=== PATIENT | female | born 1945 | race Caucasian/White ===

== ENCOUNTER 2017-11-25 11:07 | Outpatient (CLI) | payer MEDICARE, MEDICAID, SELFPAY ==
[2017-11-25 13:10] LABS: Hemoglobin A1C 9.4 % (4.5-6.2)
== END 2017-11-25 11:27 ==
DX: E11.9 Type 2 diabetes mellitus without complications (principal)
CPT/HCPCS: 36415; 83036

== ENCOUNTER 2018-03-06 12:20 | Outpatient (CLI) | payer MEDICARE, MEDICAID, SELFPAY ==
[2018-03-06 12:55] LABS: Hemoglobin A1C 9.1 % (4.5-6.2)
== END 2018-03-06 12:40 ==
DX: E11.9 Type 2 diabetes mellitus without complications (principal)
CPT/HCPCS: 36415; 83036

== ENCOUNTER 2018-07-16 12:17 | Outpatient (CLI) | payer MEDICARE, MEDICAID, SELFPAY ==
[2018-07-16 13:12] LABS: Hemoglobin A1C 9.7 % (4.5-6.2)
== END 2018-07-16 12:37 ==
DX: E11.9 Type 2 diabetes mellitus without complications (principal)
CPT/HCPCS: 36415; 83036

== ENCOUNTER 2018-10-05 00:30 | Outpatient (CLI) | payer MEDICARE, MEDICAID, SELFPAY ==
[2018-10-06 06:38] LABS: Hemoglobin A1C 9.3 % (4.5-6.2)
== END 2018-10-05 00:50 ==
DX: E11.65 Type 2 diabetes mellitus with hyperglycemia (principal)
CPT/HCPCS: 36415; 83036

== ENCOUNTER 2019-01-07 00:57 | Outpatient (CLI) | payer MEDICARE, MEDICAID, SELFPAY ==
[2019-01-07 14:22] LABS: Hemoglobin A1C 8.3 % (4.5-6.2)
== END 2019-01-07 01:17 ==
DX: E11.9 Type 2 diabetes mellitus without complications (principal)
CPT/HCPCS: 83036

== ENCOUNTER 2019-03-29 10:06 | Outpatient (CLI) | payer MEDICARE, MEDICAID, SELFPAY ==
[2019-03-29 11:34] LABS: Hemoglobin A1C 8.4 % (3.8-5.6)
== END 2019-03-29 10:26 ==
DX: E11.9 Type 2 diabetes mellitus without complications (principal)
CPT/HCPCS: 36415; 83036

== ENCOUNTER 2019-10-23 08:28 | Outpatient (CLI) | payer MEDICARE, MEDICAID, SELFPAY ==
[2019-10-25 19:02] LABS: SARS-CoV-2 RNA Undetected (Undetected); SARS-CoV-2 Specimen Source Nasopharynx
== END 2019-10-23 08:48 ==
DX: R06.02 Shortness of breath (principal)
CPT/HCPCS: U0003

== ENCOUNTER 2019-10-29 16:59 | Observation (INO) | payer MEDICARE, MEDICAID, SELFPAY ==
[2019-10-29] VITALS (79 sets, daily range): BP systolic 106–152; BP diastolic 50–78; PULSE 81–99; RESP 6–23; TEMP 37–37.4; O2SAT 93–98
--- NOTE | 2019-10-29 17:30 | RT.EKG_ITS ---
APPROVED REPORT Exam: Resting ECG Patient Location: E HR:89 bpm ECG Measurements Heart Rate 89 AXIS NJ 159 P 59 QRSd 85 QRS 17 QT 365 T 78 QTc 444 Conclusion Sinus rhythm...normal P axis, V-rate 60- [address] fep II, aVF Abnormal Electrocardiogram
[2019-10-29 17:32] LABS: Abs Immature Grans 0.04 10^3/uL (0.0-0.06); Absolute Basophil Count 0.06 10^3/uL (0.0-0.2); Absolute Eosinophil Count 0.31 10^3/uL (0.0-0.7); Absolute Lymphocyte Count 1.81 10^3/uL (1.2-3.4); Absolute Monocyte Count 0.77 10^3/uL (0.1-0.8); Absolute Neutrophil Count 6.66 10^3/uL (1.2-6.7); Basophils % 0.6; Eosinophils % 3.2; HCT 42.7 % (36.0-46.0); HGB 14.4 g/dL (11.2-15.7); Immature Grans % 0.4; Lymphocytes % 18.8; MCH 30.6 pg (27.0-33.0); MCHC 33.7 % (32.0-36.0); MCV 90.9 fL (80-95); MPV 11.2 fL (8.0-11.0); Nucleated RBC 0 %; Platelet Count 228 10^3/uL (130-400); RDW 12.2 % (11.7-14.6); RDW-SD 40.5 fL; WBC 9.65 10^3/uL (4.4-10.8)
--- NOTE | 2019-10-29 17:45 | DI.CT_ITS ---
EXAM: CT CHEST PE CTA CLINICAL HISTORY: chest pain, SOB. TECHNIQUE: Imaging Protocol: Axial CT angiography was performed with multi-slice acquisition and mu lti-planar and/or 3D reconstructions. CONTRAST MATERIAL: Intravenous: Omnipaque 350 Contrast volume:61 mL COMPARISON: No previous for comparison. FINDINGS: Pulmonary Arteries: No evidence of filling defect to suggest pulmonary emboli. Tracheobronchial tree: Patent where visualized. Mediastinum and Archana: No dominant adenopathy or fluid collection. Small hiatal hernia. Pulmonary parenchyma: No consolidation or dominant measurable mass. No architectural distortion. Depe ndent atelectasis. Pleura: No effusion or pneumothorax. Heart: The heart is not dilated. No coronary artery calcifications are seen. No pericardial effusion. Aorta: Thoracic aorta non-dilated. Mild atherosclerosis. No dissection. Upper abdomen: Unremarkable. Bones: No acute abnormality. Soft tissues: 0.8 cm hypodense nodule in the right lobe of the thyroid gland. Nonemergent ultrasound may be considered. IMPRESSION: No evidence of pulmonary embolism, thoracic aortic dissection or aneurysm. RADIATION DOSE DELIVERED: 390.95mGy.cm Total DLP DATA REPOSITORY: All CT scans at this facility are submitted to the National Radiology Data Registry (NRDR) Dose Index Registry (DIR) with the [employer] (ACR). RADIATION OPTIMIZATION: All CT scans at this facility use at least one of these dose optimization te chniques: automated exposure control; mA and/or kV adjustment per patient size (includes targeted exa ms where dose is matched to clinical indication); or iterative reconstruction.
[2019-10-29 17:50] LABS: ALT 43 U/L (14-59); AST 22 U/L (15-37); Albumin 3.8 g/dL (3.4-5.0); Alkaline Phosphatase 84 U/L (46-116); Anion Gap 7.6 mmol/L (3-11); BUN 12 mg/dL (7-18); Bilirubin, Total 0.3 mg/dL (0.2-1.0); CO2 27.4 mmol/L (21.0-32.0); Calcium 9.4 mg/dL (8.5-10.1); Chloride 95 mmol/L (98-107); Estimated GFR 53.91 (mL/min/1.73m2); Glucose 248 mg/dL (74-106); Magnesium 1.8 mg/dL (1.8-2.4); Sodium 130 mmol/L (136-145); Total Protein 7.7 g/dL (6.4-8.2)
--- NOTE | 2019-10-29 17:50 | W.ED.GENAD ---
Discharge Plan Disposition Patient Disposition: [facility] INPATIENT Condition: Improving Discharge Details Chief Complaint: SOB Clinical Impression: Chest pain, Breath shortness, Thyroid lesion, Atherosclerosis Admit Date/Time: 10/29/19 19:36 Admit Provider: Rudy Kim Attending Provider: Rudy Kim Primary Care Provider: Clemencia Garcia ED Provider: Mandeep Tejeda Hospital Course Hospital Course: 74-year-old female with history of type 2 diabetes mellitus, essential hypertension, chronic back pain due to degenerative disc disease who presents emergency department upon advice of her PCP because of exertional dyspnea and atypical chest discomfort is been going on for the last few months dating back to April or May. Patient has never had a stress test nor has she had a cardiac history that she is aware of. Patient does have a history of GERD and has had a previous Haydee's fundoplication and is chronically on Nexium. Her chest discomfort is not so much a pain as a pressure feeling that is worse with lying down and associated w/ coughing and dyspnea but is improved with sitting up. However, she is unable to sleep sitting up due to her lower back pains. She is not very ambulatory d/t her chronic low back pain which becomes severe if she is standing or sitting or walking for any prolonged periods. Patient's coronary risk factors include her age, DM, HTN, +/- HLD (she denies having high cholesterol); negative for any smoking history or family hx of premature CAD. (FH w/ multiple members w/ CA including ovarian and breast and stomach/esophageal) Evaluation included an EKG on admission that did not show acute ischemic changes. Serial troponin levels were normal. CTA of the chest did not show any pulmonary embolism nor any acute pulmonary pathology. Incidental finding was a right thyroid lobe 8 mm nodule for which a follow-up thyroid ultrasound should be performed. Echocardiogram and Lexiscan stress MPI were ordered. However an echocardiogram was not able to be performed due to lack of a field support technician. Lexiscan stress MPI was performed. Finalized written report is pending however per my discussion with Dr. Caro, radiologist, her MPI study did not show any reversible ischemic changes and her left ventricular ejection fraction of 70% with no wall motion abnormalities. I am still awaiting ceramic mold designer report on the EKG portion however I reviewed the myself and did not find any ischemic ST or T wave changes. Patient's chest pain is reproducible with chest wall palpation and consistent with costochondritis. Her other symptoms I think are referrable to her GERD including her nocturnal coughing and dyspnea with recumbent position and I recommend she follow-up with her GI specialist at [facility] for esophageal manometry and/or EGD. In the interim she should increase her Nexium from 20 mg daily to 40 mg daily. Discharge Instructions Instructions: Diet for Stomach Ulcers and Gastritis (GEN), Costochondritis (DC), Thyroid Nodules (DC), Esophageal Spasm (ED) Additional Instructions: Increase your Nexium to 40 mg nightly at bedtime. Avoid meals or snacks within a 2-hour period prior to lying down. Try to sleep in a semi-sitting up position with your head and shoulders at least 30 degrees above the level of your abdomen. See your primary care provider for follow-up and referral to your GI specialist. A follow-up esophageal manometry and/or EGD are recommended to evaluate your GERD. Your stress MPI test was normal. However this does not preclude the potential for future coronary ischemic events particularly given your history of diabetes mellitus and hypertension. It is recommended that you work with your primary care provider to improve your diabetic control as you are glycohemoglobin A1c is elevated at 8.3% which is indicative of poor control of your diabetes mellitus. I have ordered a thyroid ultrasound to be done next week through the radiology department at [facility] to evaluate the right thyroid lobe nodule. Your primary care provider should follow-up on these results and make appropriate referrals to endocrinology. Forms: Nursing Discharge Form Referrals: Clemencia Garcia NP [Primary Care Provider] - (Call the office for a follow-up visit within the next 2 weeks.) Discharge Data Discharge Date/Time-TO BE ENTERED AT DEPARTURE: 10/29/19 20:10 Medical Decision Making 1753??74-year-old female here with chest pressure that is positional and worse lying flat with associated shortness of breath and cough. Symptoms have been ongoing for the past 6 months. Patient was encouraged to seek emergent treatment by her PCP. Patient is mildly hypertensive. Saturating well and in no respiratory distress. She does have rales bilaterally lower lungs and notes that she feels like she cannot take a deep breath in. Consider acute pulmonary embolism. Given clinical suspicion I will obtain CT of the chest. Consider ACS. ECG does have subtle ST depressions noted inferiorly. Please see ECG report. I will check troponin. 191 --CT of the chest was interpreted by radiology-- Impression: No evidence for pulmonary embolism. Of note, in the findings of the report the radiologist does make mention of a moderate atherosclerotic changes in the vasculature particular at the origin of left common carotid artery and subclavian artery as well as a small low-density right lobe thyroid lesion. Follow-up sonography is recommended. Lungs are noted to be unremarkable with no consolidation and no masses. Patient was reassessed. She did receive 2 sublingual nitroglycerin and had no change in her discomfort, she declined 3rd nitroglycerin. Initial troponin is negative. Given her ECG, risk factors including diabetes and hypertension, I do think it is prudent to admit for observation, serial enzymes and will need timely stress test. HPI General Mode of arrival: ambulatory. Date/Time Provider Initiated Documentation: 10/29/19 17:11. Limitations to Documentation: no limitations. Information obtained by: patient. HPI Narrative: 74-year-old female presents with chief complaint of chest discomfort. Patient notes chest pressure intermittent over the past 6 months. She has intermittent sharp discomfort in her left chest as well. Pain is positional and worse when she is lying back. She also notes associated shortness of breath that is worse when she is lying flat and worse at night. She does have associated cough. No fevers. She did have recent negative COVID-19 testing on 10/23/2019. Patient notes the pain is currently moderate and improved with her sitting. She notes that she feels like she has trouble getting air in when she is taking a deep breath. Related Data Home Medications Medication Instructions Recorded Confirmed One-Per-Day Bellona-3 1,000 mg PO HS 06/12/12 10/29/19 multivitamin [Daily Multi-Vitamin] 1 ea PO DAILY 06/12/12 10/29/19 blood-glucose meter [OneTouch #1 kit 02/05/13 06/09/19 UltraMini] cholecalciferol (vitamin D3) 2,000 unit PO DAILY 05/10/15 10/29/19 Narcan 4 mg NS PRN #2 spray 12/24/16 10/29/19 acetaminophen 500 mg tablet 500 mg PO TID PRN tab 11/25/17 10/29/19 clotrimazole-betamethasone 1 1 applic TP BID 11/25/17 10/29/19 %-0.05 % topical cream meclizine 25 mg tablet 25 mg PO BID PRN 11/25/17 10/29/19 glimepiride 1 mg tablet 1 - 2 mg PO DIRECTED #270 tab 05/04/19 10/29/19 insulin glargine 100 unit/mL (3 10 - 30 unit SC DAILY 30 Days #15 05/05/19 10/29/19 mL) subcutaneous pen ml lisinopril 20 1 tab PO DAILY #90 tab 05/12/19 10/29/19 mg-hydrochlorothiazide 12.5 mg tablet bupropion HCl 150 mg tablet,12 hr 150 mg PO BID #180 tab 06/09/19 10/29/19 sustained-release pen needle, diabetic 32 gauge x #90 each 07/09/19 07/09/19 blood sugar diagnostic #300 each 07/14/19 lancets 33 gauge #300 each 07/14/19 lidocaine 5 % topical patch 1 patch TP DAILY #10 each 08/06/19 10/29/19 lorazepam 0.5 mg tablet 0.25 mg PO HS PRN #15 tab MDD 10/06/19 10/29/19 0.25mg sertraline 50 mg tablet 25 mg PO DAILY #90 tab 10/12/19 10/29/19 hydrocodone 10 mg-acetaminophen 1 tab PO Q8H PRN #90 tab MDD 30mg 10/13/19 10/29/19 325 mg tablet gabapentin 200 mg PO HS 10/29/19 10/29/19 esomeprazole magnesium 40 mg PO HS #0 cap 10/30/19 10/29/19 Previous Rx's Medication Instructions Recorded Narcan 4 mg NS PRN #2 spray 12/24/16 glimepiride 1 mg tablet 1 - 2 mg PO DIRECTED #270 tab 05/04/19 insulin glargine 100 unit/mL (3 10 - 30 unit SC DAILY 30 Days #15 05/05/19 mL) subcutaneous pen ml lisinopril 20 1 tab PO DAILY #90 tab 05/12/19 mg-hydrochlorothiazide 12.5 mg tablet bupropion HCl 150 mg tablet,12 hr 150 mg PO BID #180 tab 06/09/19 sustained-release pen needle, diabetic 32 gauge x #90 each 07/09/19 blood sugar diagnostic #300 each 07/14/19 lancets 33 gauge #300 each 07/14/19 lidocaine 5 % topical patch 1 patch TP DAILY #10 each 08/06/19 lorazepam 0.5 mg tablet 0.25 mg PO HS PRN #15 tab MDD 10/06/19 0.25mg sertraline 50 mg tablet 25 mg PO DAILY #90 tab 10/12/19 hydrocodone 10 mg-acetaminophen 1 tab PO Q8H PRN #90 tab MDD 30mg 10/13/19 325 mg tablet esomeprazole magnesium 40 mg PO HS #0 cap 10/30/19 Allergies Allergy/AdvReac Type Severity Reaction Status Date / Time adhesive Allergy Unknown Verified 10/29/19 17:39 ampicillin Allergy Unknown Verified 10/29/19 17:39 cyclobenzaprine Allergy Unknown Verified 10/29/19 17:39 erythromycin base Allergy Unknown Verified 10/29/19 17:39 Penicillins Allergy Unknown Verified 10/29/19 17:39 Sulfa (Sulfonamide Allergy Unknown Verified 10/29/19 17:39 Antibiotics) levofloxacin AdvReac Severe VOMITING,DI Verified 10/29/19 17:39 ARRHEA metformin AdvReac Intermediate DIARRHEA Verified 10/29/19 17:39 pregabalin AdvReac Mild FATIGUE Verified 10/29/19 17:39 epinephrine AdvReac Unknown Verified 10/29/19 17:39 rofecoxib AdvReac Unknown Verified 10/29/19 17:39 General Stated Complaint: SOB PETER: 2 Review of Systems All systems reviewed & are unremarkable except as noted in HPI and below Constitutional Constitutional: Denies fever(s) Cardiovascular Cardiovascular: Reports as per HPI, Reports chest pain and Denies pedal edema Respiratory Respiratory: Reports as per HPI [facility] Medical History Advanced directives, counseling/discussion (Acute) Cardiac symptoms (Acute) Chronic low back pain with left-sided sciatica (Chronic 02/12/14) [facility] [place] MRI 05/03 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 Uses Lidocaine patches and Hydrocodone 10-325 up to TID PRN. She continues to walk for exercise. Also uses 200g Gabapentin QD. 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 Controlled substance agreement renewed-kb Depressive disorder (Acute) Diabetes mellitus (Chronic 06/13/12) Diabetic foot with normal protective sensation, peripheral vasculature, and bone structure (Acute) Diabetic retinopathy (Chronic ~01/08/18) 01/08/18; ANDRIY; MILD B/L-kb Essential hypertension (Acute 01/19/13) Fibrocystic disease of breast (Acute) left breast bx Gastroesophageal reflux disease with esophagitis (Chronic) h/o esophageal stricture (dilated at [facility] [place]) Grief (Acute) Loss of spouse 05/2019 Hyperplastic polyps of stomach (Chronic) 03/30/15;[facility] [place] Impacted cerumen of both ears (Acute) Insomnia (Chronic) Osteoarthritis (Chronic) Sciatic nerve pain (Acute) Right Shoulder pain, bilateral (Chronic 02/14/07) right shoulder; MRI-DJD/rotator cuff Surgical History Abdominal hysterectomy Appendectomy Biopsy of breast Bladder Surgery DILATION ESOPHAGEAL; MULTIPLE TIMES DISC SURGERY Reduction mammoplasty (~2001) Family History Brother Essential hypertension Brother No problems noted. Mother Essential hypertension Personal history of malignant neoplasm colon and throat Father Heart disease Sister Diabetes Essential hypertension Sister Essential hypertension Sister No problems noted. Maternal Aunts Personal history of malignant neoplasm Breast Cancer Other Family hx-breast malignancy Social History Smoking/Tobacco Use Status: Never Second Hand Exposure: No Alcohol Intake: never current occupation: CAREGIVER Duration: 30-45 minutes/day Frequency: 3-4 times per week Do you feel safe at home: Yes Do you feel safe in your relationship?: Yes History History 5 Para 3 Hx # Term Pregnancies 3 Multiple births Hx # Pregnancies Ectopic pregnancies AB induced Hx Number of Living Children 3 AB spontaneous 2 Exam Const General: cooperative and no acute distress HENMT Mouth: moist mucous membranes Eyes Conjunctivae: normal conjunctivae Sclera: normal sclerae Neck Neck: trachea midline and supple Resp Auscultation: rales bilaterally in the lower lung jewell, no rhonchi and no wheezes Other: Patient notes unable to take a deep breath Cardio Jugular venous pressure: no JVD Rate: regular rate and not tachycardic Rhythm: regular rhythm GI Palpation: soft, not firm, no guarding, no masses, not rigid and nontender Skin General skin exam: no rashes or lesions noted Neuro General: patient alert, patient awake, patient oriented x3 and tone normal Extrem General: no edema Psych Appearance: grossly normal Mental Status: mental status grossly normal Course Vital Signs Vital signs: Vital Signs Temperature 37.0 C 10/29/19 17:08 Pulse 95 H 10/29/19 17:08 Respiratory Rate 16 10/29/19 17:08 Blood Pressure 152/71 H 10/29/19 17:08 Pulse Oximetry 97 10/29/19 17:08 Temperature 37.0 C 10/29/19 17:08 Temperature Source Temporal Artery Scan 10/29/19 17:08 Pulse 88 10/29/19 17:31 Pulse 92 H 10/29/19 17:31 Respiratory Rate 16 10/29/19 17:31 Respiratory Effort 10/29/19 17:30 Respiratory Depth Shallow 10/29/19 17:14 Blood Pressure 135/62 10/29/19 17:31 Blood Pressure Mean 80 10/29/19 17:31 Pulse Oximetry 96 10/29/19 17:34 Oxygen Delivery Method Nasal Cannula 10/29/19 17:34 Oxygen Flow Rate 2 10/29/19 17:34 Lab/Test Results Lab/Test Results: Laboratory Tests Range/Units 10/29/19 17:20 WBC (4.4-10.8) 10^3/uL 9.65 RBC (3.93-5.22) 10^6/uL 4.70 Hgb (11.2-15.7) g/dL 14.4 Hct (36.0-46.0) % 42.7 MCV (80-95) fL 90.9 MCH (27.0-33.0) pg 30.6 MCHC (32.0-36.0) % 33.7 RDW (11.7-14.6) % 12.2 Plt Count (130-400) 10^3/uL 228 MPV (8.0-11.0) fL 11.2 H Immature Gran % 0.4 Neutrophils % 69.0 Lymphocytes % 18.8 Monocytes % 8.0 Eosinophils % 3.2 Basophils % 0.6 Absolute Neutrophils (1.2-6.7) 10^3/uL 6.66 Absolute Lymphocytes (1.2-3.4) 10^3/uL 1.81 Absolute Monocytes (0.1-0.8) 10^3/uL 0.77 Absolute Eosinophils (0.0-0.7) 10^3/uL 0.31 Absolute Basophils (0.0-0.2) 10^3/uL 0.06
[2019-10-29 17:52] LABS: Troponin I < 0.05 ng/mL (<0.06)
[2019-10-29] MEDS: Normal Saline Flush 10 ML SYR IVP ×3 (17:55→21:57)
[2019-10-29] MEDS: Normal Saline 1,000 ML 30 ML IV ×2 (18:00→21:43)
[2019-10-29 18:03] LABS: D-Dimer 356 ng/mlFEU (<500)
[2019-10-29] MEDS: nitroGLYcerin 0.4 MG TAB SL ×2 (18:03→18:09)
[2019-10-29] MEDS: Omnipaque 350 MG/ML 100 ML BTL IJ (18:33)
[2019-10-29] MEDS: Normal Saline - Diluent 50 ML VIAL IV (18:34)
--- NOTE | 2019-10-29 18:50 | DI.VRAD_ITS ---
PROCEDURE INFORMATION: Exam: CT Angiography Chest With Contrast Exam date and time: 10/29/2019 6:32 PM Age: 74 years old Clinical indication: Other: Chest pain, SOB TECHNIQUE: Imaging protocol: Computed tomographic angiography of the chest with intravenous contrast. 3D rendering: MIP and/or 3D reconstructed images were created by the technologist. Contrast material: OMNIPAQUE 350; Contrast volume: 61 ml; Contrast route: INTRAVENOUS (IV); COMPARISON: No relevant prior studies available. FINDINGS: Pulmonary arteries: Normal. No pulmonary emboli. Great vessels off aortic arch: Moderate atherosclerotic change present in the vasculature particularly at the origin of the left common carotid artery and subclavian artery. Aorta: Unremarkable. No aortic aneurysm. No aortic dissection. Thyroid: Small low-density right lobe thyroid lesion series 6, image 30 8 mm. Follow-up sonography could be considered. Lungs: Unremarkable. No consolidation. No masses. Pleural space: Unremarkable. No pneumothorax. No pleural effusion. Heart: Unremarkable. No cardiomegaly. No pericardial effusion. Mediastinal space: Small hiatal hernia. Lymph nodes: Unremarkable. No enlarged lymph nodes. Bones/joints: Mild thoracic spondylosis. Soft tissues: Unremarkable. IMPRESSION: No evidence for pulmonary embolus. Dictated and Authenticated by: Delisa Villafuerte MD. Ordering:HARRISON Kaufman MD
[2019-10-29 20:20] LABS: NT-proBNP 22 pg/mL (<300)
[2019-10-29 21:24] LABS: Troponin I < 0.05 ng/mL (<0.06)
[2019-10-29] MEDS: Enoxaparin 40 MG/0.4 ML SYR SC (21:43)
[2019-10-29] MEDS: Acetaminophen 325 MG TAB PO (21:57)
[2019-10-29] MEDS: Insulin Glargine 300 UNITS/3 ML PEN 15 UNITS SC (21:58)
--- NOTE | 2019-10-29 22:35 | HPE_ITS ---
Date of service: 10/29/19 Time of Service: 22:35 Assessment and Plan Assessment and plan (1) Chest pain: Status: Acute Assessment and plan: Atypical chest pain in that it does not seem to be exertionally related but more related to position especially with lying flat. I suspect that this is her GERD causing her cough and her dyspnea and her chest discomfort. Nevertheless she has multiple risk factors for coronary artery disease and should undergo a stress MPI. Will get an echocardiogram to evaluate left ventricular size and function as well as for any valvular pathology. We will get a stress MPI Alicia scan in the morning to rule out ischemic heart disease. Patient declines to take any aspirin because of a remote history of peptic ulcer disease. I will check a lipid profile and a glycohemoglobin A1c in the morning. Otherwise we will keep her on her current blood pressure medications including lisinopril with hydrochlorothiazide. If she has evidence of ischemic heart disease on stress MPI I will put her on Plavix as well as high-dose statin therapy and beta-zayda therapy. If her stress MPI is negative then she should see her GI specialist for follow-up esophageal manometry Qualifiers: Chest pain type: precordial pain Qualified Code(s): R07.2 - Precordial pain (2) Breath shortness: Status: Acute Assessment and plan: No evidence for PE on her CTA. Radiologist read the CTA is not showing any pulmonary pathology although by my reading I think there may be some subtle groundglass changes at the right posterior base. It may be worth getting a high resolution CT of her lungs as an outpatient. I think her symptoms of dyspnea particularly with lying down are related to her GERD. She has had no smoking history so there should be no reason to suspect occult COPD. We will check an echocardiogram in the morning to rule out any valvular pathology or any evidence for pulmonary hypertension. If there is signs of pulmonary hypertension then I would recommend getting a sleep study. (3) Thyroid lesion: Status: Acute Assessment and plan: Patient will be scheduled for thyroid ultrasound to be performed as an outpatient upon discharge. Follow-up with her PCP who can then refer her to endocrinology. (4) Essential hypertension: Status: Acute Assessment and plan: Continue lisinopril with hydrochlorothiazide. (5) Diabetes mellitus: Status: Chronic Assessment and plan: We will withhold her glimepiride while she is inpatie nt and cover with NovoLog as well as Lantus. I have written for both carbohydrate coverage with meals as well as a sliding scale for correction of elevated blood sugars. Put on Lantus 15 units at at bedtime. We will get a glycohemoglobin A1c in the morning to assess her long-term diabetic control. Qualifiers: Diabetes mellitus type: type 2 Diabetes mellitus senior care insulin use: without senior care use Diabetes mellitus complication status: with hyperglycemia Qualified Code(s): E11.65 - Type 2 diabetes mellitus with hyperglycemia (6) Depressive disorder: Status: Acute Assessment and plan: Continue her current dose Wellbutrin (7) Gastroesophageal reflux disease with esophagitis: Status: Chronic Assessment and plan: Continue current dose of Nexium. Recommend follow-up with her GI specialist at [facility] for esophageal manometry and/or repeat EGD. She states her last EGD was performed about 2 years ago at the same time she had a colonoscopy. History of Present Illness History of Present Illness Chief Complaint: Dyspnea, chest tightness Narrative: 74-year-old female with history of type 2 diabetes mellitus, essential hypertension, chronic back pain due to degenerative disc disease who presents emergency department upon advice of her PCP because of exertional dyspnea and atypical chest discomfort is been going on for the last few months dating back to April or May. Patient has never had a stress test nor has she had a cardiac history that she is aware of. Patient does have a history of GERD and has had a previous Haydee's fundoplication and is chronically on Nexium. Her chest discomfort is not so much a pain as a pressure feeling that is worse with lying down and associated w/ coughing and dyspnea but is improved with sitting up. However, she is unable to sleep sitting up due to her lower back pains. She is not very ambulatory d/t her chronic low back pain which becomes severe if she is standing or sitting or walking for any prolonged periods. She was referred to the ER by her PCP when she had a telephone visit today. Evaluation in the ER included an EKG which did not show any ischemic changes (although the ER physician felt that there were subtle ST abnormalities in II and aVF). The patient has a non-specific T wave inversion in aVL. No prior EKG were available to compare. She received nitroglycerin in the ER which did not make any change in her dyspnea or chest pressure. CTA of her did not show any P.E. and no acute pulmonary pathology was noted. However she has atherosclerotic changes of her LCCA and L subclavian arteries. She has no aortic aneurysm. No evidence for CHF or lung nodules or pneumonia. Incidental finding includes right thyroid nodule 8 mm. Troponin I has been negative x 2 sets and her BNP is normal. Patient's coronary risk factors include her age, DM, HTN, +/- HLD (she denies h aving high cholesterol); negative for any smoking history or family hx of premature CAD. (FH w/ multiple members w/ CA including ovarian and breast and stomach/esophageal). The patient is admitted under observation for echo and Lexiscan stress MPI in the a.m. If her MPI is negative for ischemia then she should see her GI specialist at [facility] for follow up esophageal manometry to evaluate her GERD and her Haydee's fundiplication. Review of Systems All systems reviewed & are unremarkable except as noted in HPI and below [facility] Medical History Advanced directives, counseling/discussion (Acute) Cardiac symptoms (Acute) Chronic low back pain with left-sided sciatica (Chronic 02/12/14) [facility] [place] 05/03 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 Uses Lidocaine patches and Hydrocodone 10-325 up to TID PRN. She continues to walk for exercise. Also uses 200g Gabapentin QD. 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 Controlled substance agreement renewed-kb Depressive disorder (Acute) Diabetes mellitus (Chronic 06/13/12) Diabetic foot with normal protective sensation, peripheral vasculature, and bone structure (Acute) Diabetic retinopathy (Chronic ~01/08/18) 01/08/18; ANDRIY; MILD B/L-kb Essential hypertension (Acute 01/19/13) Fibrocystic disease of breast (Acute) left breast bx Gastroesophageal reflux disease with esophagitis (Chronic) h/o esophageal stricture (dilated at [facility]) Grief (Acute) Loss of spouse 05/2019 Hyperplastic polyps of stomach (Chronic) 03/30/15;[facility] Impacted cerumen of both ears (Acute) Insomnia (Chronic) Osteoarthritis (Chronic) Sciatic nerve pain (Acute) Right Shoulder pain, bilateral (Chronic 02/14/07) right shoulder; MRI-DJD/rotator cuff Surgical History Abdominal hysterectomy Appendectomy Biopsy of breast Bladder Surgery DILATION ESOPHAGEAL; MULTIPLE TIMES DISC SURGERY Reduction mammoplasty (~2001) Family History Brother Essential hypertension Brother No problems noted. Mother Essential hypertension Personal history of malignant neoplasm colon and throat Father Heart disease Sister Diabetes Essential hypertension Sister Essential hypertension Sister No problems noted. Maternal Aunts Personal history of malignant neoplasm Breast Cancer Other Family hx-breast malignancy Social History Smoking/Tobacco Use Status: Never Second Hand Exposure: No Alcohol Intake: never current occupation: CAREGIVER Duration: 30-45 minutes/day Frequency: 3-4 times per week Do you feel safe at home: Yes Do you feel safe in your relationship?: Yes History History 5 Para 3 Hx # Term Pregnancies 3 Multiple births Hx # Pregnancies Ectopic pregnancies AB induced Hx Number of Living Children 3 AB spontaneous 2 Meds Home Medications and Allergies Home Medications Medication Instructions Recorded Confirmed Type multivitamin [Multi Vitamin Daily] 1 ea PO DAILY 06/12/12 10/29/19 History omega-3 fatty acids-fish oil 1,000 mg PO HS 06/12/12 10/29/19 History [[place] 3 Fish Oil Softgel] blood-glucose meter [One Touch #1 kit 02/05/13 06/09/19 History Ultramini] Narcotic Contract 02/12/14 10/27/18 Clinic cholecalciferol (vitamin D3) 2,000 unit PO DAILY 05/10/15 10/29/19 History naloxone [Narcan Nasal [place]] 4 mg NS PRN #2 spray 12/24/16 10/29/19 Rx acetaminophen 500 mg tablet 500 mg PO TID PRN tab 11/25/17 10/29/19 History clotrimazole-betamethasone 1 1 applic TP BID 11/25/17 10/29/19 History %-0.05 % topical cream meclizine 25 mg tablet 25 mg PO BID PRN 11/25/17 10/29/19 History glimepiride 1 mg tablet 1 - 2 mg PO DIRECTED #270 tab 05/04/19 10/29/19 Rx insulin glargine 100 unit/mL (3 10 - 30 unit SC DAILY 30 Days #15 05/05/19 10/29/19 Rx mL) subcutaneous pen ml lisinopril 20 1 tab PO DAILY #90 tab 05/12/19 10/29/19 Rx mg-hydrochlorothiazide 12.5 mg tablet bupropion HCl 150 mg tablet,12 hr 150 mg PO BID #180 tab 06/09/19 10/29/19 Rx sustained-release pen needle, diabetic 32 gauge x #90 each 07/09/19 07/09/19 Rx blood sugar diagnostic #300 each 07/14/19 Rx lancets 33 gauge #300 each 07/14/19 Rx lidocaine 5 % topical patch 1 patch TP DAILY #10 each 08/06/19 10/29/19 Rx lorazepam 0.5 mg tablet 0.25 mg PO HS PRN #15 tab MDD 10/06/19 10/29/19 Rx 0.25mg sertraline 50 mg tablet 25 mg PO DAILY #90 tab 10/12/19 10/29/19 Rx hydrocodone 10 mg-acetaminophen 1 tab PO Q8H PRN #90 tab MDD 30mg 10/13/19 10/29/19 Rx 325 mg tablet esomeprazole magnesium 20 mg PO HS 10/29/19 10/29/19 History gabapentin 200 mg PO HS 10/29/19 10/29/19 History Allergies Allergy/AdvReac Type Severity Reaction Status Date / Time adhesive Allergy Unknown Verified 10/29/19 17:39 ampicillin Allergy Unknown Verified 10/29/19 17:39 cyclobenzaprine Allergy Unknown Verified 10/29/19 17:39 erythromycin base Allergy Unknown Verified 10/29/19 17:39 Penicillins Allergy Unknown Verified 10/29/19 17:39 Sulfa (Sulfonamide Allergy Unknown Verified 10/29/19 17:39 Antibiotics) levofloxacin AdvReac Severe VOMITING,DI Verified 10/29/19 17:39 ARRHEA metformin AdvReac Intermediate DIARRHEA Verified 10/29/19 17:39 pregabalin AdvReac Mild FATIGUE Verified 10/29/19 17:39 epinephrine AdvReac Unknown Verified 10/29/19 17:39 rofecoxib AdvReac Unknown Verified 10/29/19 17:39 Exam Narrative Exam Narrative: Anxious redheaded female who is lying in bed on her side. She is alert and oriented person place time circumstance. She is very hard of hearing she has hearing aids but does not have them in her ears at this moment. HEENT is unremarkable. Neck is supple nontender no JVD normal carotid pulses no cervical lymphadenopathy. Lungs are clear to auscultation. Heart is regular rate and rhythm without murmur rub or gallop. Chest wall is tender over the sternum and costal sternal junction on the left. Breast exam is remarkable for an inverted left breast nipple and a small pa lpable fatty nodule with mobile and tender at the 6 o'clock position from the left areola. There is no lymphadenopathy of the left axilla. Right breast is normal without axillary adenopathy. Abdomen has a midline scar consistent with a previous laparotomy. No palpable masses no bruits. Lower extremities without peripheral cyanosis or edema. Normal pedal pulses. Neurologic exam grossly intact no focal motor or sensory deficits are appreciated. No focal cranial nerve deficits are appreciated. Genitalia rectal exam deferred. Results Imaging CT scan - chest: report reviewed and image reviewed EKG: image reviewed Labs Result diagrams: 10/29/19 17:20 10/29/19 17:20 Labs: Laboratory Results - last 24 hr 10/29/19 10/29/19 10/29/19 17:00 17:20 17:20 WBC 9.65 RBC 4.70 Hgb 14.4 Hct 42.7 MCV 90.9 MCH 30.6 MCHC 33.7 RDW 12.2 Plt Count 228 MPV 11.2 H Immature Gran % 0.4 Neutrophils % 69.0 Lymphocytes % 18.8 Monocytes % 8.0 Eosinophils % 3.2 Basophils % 0.6 Absolute Neutrophils 6.66 Absolute Lymphocytes 1.81 Absolute Monocytes 0.77 Absolute Eosinophils 0.31 Absolute Basophils 0.06 D-Dimer Sodium 130 L Potassium 4.0 Chloride 95 L Carbon Dioxide 27.4 Anion Gap 7.6 BUN 12 Creatinine 1.00 Estimated GFR/1.73 m2 53.91 Glucose 248 H Calcium 9.4 Magnesium 1.8 Total Bilirubin 0.3 AST 22 ALT 43 Alkaline Phosphatase 84 Troponin I < 0.05 NT-Pro-B Natriuret Pep 22 Total Protein 7.7 Albumin 3.8 10/29/19 10/29/19 17:20 20:55 WBC RBC Hgb Hct MCV MCH MCHC RDW Plt Count MPV Immature Gran % Neutrophils % Lymphocytes % Monocytes % Eosinophils % Basophils % Absolute Neutrophils Absolute Lymphocytes Absolute Monocytes Absolute Eosinophils Absolute Basophils D-Dimer 356 Sodium Potassium Chloride Carbon Dioxide Anion Gap BUN Creatinine Estimated GFR/1.73 m2 Glucose Calcium Magnesium Total Bilirubin AST ALT Alkaline Phosphatase Troponin I < 0.05 NT-Pro-B Natriuret Pep Total Protein Albumin Last Vital Signs Temp 37.4 C 10/29/19 20:23 Pulse 82 10/29/19 20:23 Resp 19 10/29/19 20:23 BP 147/75 H 10/29/19 20:23 Pulse Ox 98 10/29/19 20:23 COVID-19 Screening Have you,or household,traveled outside [place] in last 14 days?: No Had IN PERSON contact w/suspected or confirmed C-19 person: No
[2019-10-29] MEDS: Omega-3 Fatty Acids 1000 MG CAP PO (23:17)
[2019-10-29] MEDS: buPROPion-CR 150 MG TABCR PO (23:17)
[2019-10-29] MEDS: Gabapentin 100 MG CAP 200 MG PO (23:17)
[2019-10-29] MEDS: Esomeprazole 20 MG CAPCR PO (23:32)
[2019-10-29 23:49] LABS: Troponin I < 0.05 ng/mL (<0.06)
[2019-10-30] VITALS (7 sets, daily range): BP systolic 105–116; BP diastolic 56–70; PULSE 67–89; RESP 16–19; TEMP 36.5–37.1; O2SAT 93–100
--- NOTE | 2019-10-30 07:00 | DI.NM_ITS ---
APPROVED REPORT Exam: Pharmacologic Patient Location: In-Patient Room/Bed: 208 Stress Nurse: Georgie Cotton RN BMI: 22.82 Baseline Rhythm: Sinus Rhythm Comment: T wave inversion in lead aVL. Indications: Patient presented to the ED 10/29/2019, upon the advice of her PCP, with SOB and exertion al chest tightness especially when lying flat, and is associated coughing and dyspnea that is improve d with sitting up. In the ED her Troponins were negative X2 and no changes in her EKG were noted. Pat ient reports having chest pressure/heaviness with exertion since ???April/May???. Medical History Medical History: GERD, Haydee Fundiplication, CAD, Depression, Thyroid Lesion. Cardiac Medications: Lisinopril/Hydrochlorothiazide 20/12.5. Allergies: Adhesive, Ampicillin, Cyclobenzaprine, Erythromycin, Penicillin, Sulfonamides, Levofloxaci n, Metformin, Pregabalin, Epinephrine, Rofecoxib. Cardiac Risk Factors: FHX of CAD, HTN, Diabetes (insulin) Previous Cardiac Procedures: None Pretest Chest Pain Characteristics: Slightly Left sided chest discomfort/heavyness rated 4/10, when t ouching area on chest pain is 9/10. Exercise History: Sedentary Physical Disabilities: Back, Legs Lung Sounds: Clear to auscultation Heart Sounds: Regular Stress Test Details Test: Pharmacologic stress testing performed using 0.4 mg of regadenoson per 5 mL given IV over 10 s econds. Reason for pharmacologic stress test: physical limitation. Nuclear Acquisition: Rest Tc-99m/Stress Tc-99m 1 day Rest Isotope: Tc-99m Sestamibi. Dose: 10.2 Date: 10/30/2019 Injection Time: 1100 Stress Isotope: Tc-99m Sestamibi. Dose: 32.0 Date: 10/30/2019 Injection Time: 1450 HR Resting HR Supine: 81 bpm Max Heart Rate (APMHR): 144 bpm Target HR (85% APMHR): 122 bpm Max HR Achieved: 112 bpm % of APMHR: 77 BP Resting BP Supine: 140/78 mmHg Max BP: 180/84 mmHg ECG Resting ECG: Sinus Rhythm Stress ECG: Sinus Rhythm ST Change: Normal Arrhythmia: None Recovery ECG: Sinus Rhythm Recovery ST Change: Normal Recovery Arrhythmia: None Clinical Stress Symptoms: Patient reported chest discomfort was worse (8/10) after the Lexiscan injection. Stress ECG Conclusion 1. Pharmacological stress test. 2. Patient no symptoms digestive of ischemia 3. EKG portion of this exam is nondiagnostic. Stress Test Summary STAGE HR BP Symptoms NOTES Supine 81 140/78 1 min post Lexiscan injection 110 180/80 3 min post Lexiscan injection 109 180/84 6 min post Lexiscan injection 100 178/80 9 min post Lexiscan injection 97 160/78 MPI Conclusion The ejection fraction was 77% with stress. There were no wall motion abnormalities. There is no evidence of ischemia on the imaging portion of the exam. This represents a normal SPECT stress test.
[2019-10-30 07:10] LABS: Calculated LDL 67 mg/dL (<100); Cholesterol 160 mg/dL (<200); HDL Cholesterol 42 mg/dL (40-60); Triglyceride 256 mg/dL (<150)
[2019-10-30] MEDS: Lidocaine 5% Patch 1 PATCH TP (07:43)
[2019-10-30] MEDS: Cholecalciferol (Vitamin D3) 1,000 UNIT TAB 2000 UNITS PO (07:43)
[2019-10-30] MEDS: buPROPion-CR 150 MG TABCR PO (07:44)
[2019-10-30] MEDS: Sertraline 25 MG TAB PO (07:44)
[2019-10-30] MEDS: Multivitamin TAB 1 TAB PO (07:44)
[2019-10-30] MEDS: Clotrimazole/Betamet Diprop Cream 15 GM TUBE TP (07:45)
[2019-10-30 08:08] LABS: Hemoglobin A1C 8.3 % (3.8-5.6)
[2019-10-30] MEDS: Lisinopril 20 MG TAB PO (10:13)
[2019-10-30] MEDS: hydroCHLOROthiazide 12.5 MG TAB PO (10:13)
--- NOTE | 2019-10-30 11:15 | RT.EKG_ITS ---
APPROVED REPORT Exam: Resting ECG Patient Location: I HR:79 bpm ECG Measurements Heart Rate 79 AXIS WV 169 P 56 QRSd 89 QRS 25 QT 420 T 81 QTc 483 Conclusion Sinus rhythm...normal P axis, V-rate 60- 99
--- NOTE | 2019-10-30 11:44 | PGE_ITS ---
Date of Service Date of service: 10/30/19 Time of Service: 11:44 Assessment and Plan Assessment and plan (1) Chest pain: Status: Acute Assessment and plan: Treat the symptomatic costochondritis with a one-time dose of IV Toradol. She did not respond to nitroglycerin last night and this does not appear to be ischemic pain. Her blood pressure was a little on the low side this morning and therefore it did not give her nitroglycerin with this pain particularly since it was reproducible with palpation of her chest wall. Will check on the results of her stress MPI this afternoon and if it is negative she will be discharged home. Qualifiers: Chest pain type: precordial pain Qualified Code(s): R07.2 - Precordial pain (2) Breath shortness: Status: Acute Assessment and plan: Again I think her dyspnea is most likely secondary to her GERD since it seems to be positional worse with lying down better with sitting up. I think that there is also some anxiety component to this as well. We will get a an amatory pulse oximetry this afternoon to document normal oxygen saturation. She had a CTA of her chest last night that did not show any acute pulmonary disease. For completeness sake one may consider doing screening spirometry. (3) Gastroesophageal reflux disease with esophagitis: Status: Chronic Assessment and plan: I am going to increase her Nexium from 20 mg nightly to 40 mg nightly to see if this helps her symptoms. She should follow-up with her GI specialist at [facility] upon discharge. Subjective Subjective Interval history since last seen: Patient slept through the night fine and had no further episodes of chest pain until this morning when she tried getting up out of bed. Her chest pain is left sternocostal in location and reproducible with palpation. Hurts worse if she takes a deep breath or coughs or moves. We rechecked an EKG and it showed no acute ischemic changes. Her troponins were all negative last night. Checked an ESR this morning looking for pleurisy or pericarditis and her ESR was normal at 26. Unfortunately we cannot get an echocardiogram done this morning. Patient is scheduled for a stress MPI this afternoon with Lexiscan. If this is negative then she will be discharged home with follow-up with her primary care provider. I think she has a couple things going on I think she has some musculoskeletal pain but also I think her positional dyspnea and cough is secondary to her GERD and she should follow-up with her GI specialist at [facility]. Exam Narrative Exam Narrative: Anxious elderly female who is alert and oriented and in no acute respiratory distress. Neck exam reveals no accessory muscle use. Lungs are clear to auscultation Heart is regular rate and rhythm Abdomen soft with some mild epigastric tenderness no guarding. Extremities without peripheral edema Objective Objective Clinical Data: Abnormal lab results 10/29/19 10/29/19 10/30/19 Range/Units 17:20 17:20 06:35 MPV 11.2 H (8.0-11.0) fL Sodium 130 L (136-145) mmol/L Chloride 95 L (98-107) mmol/L Glucose 248 H (74-106) mg/dL Hemoglobin A1c 8.3 H (3.8-5.6) % Triglycerides (<150) mg/dL 10/30/19 Range/Units 06:35 MPV (8.0-11.0) fL Sodium (136-145) mmol/L Chloride (98-107) mmol/L Glucose (74-106) mg/dL Hemoglobin A1c (3.8-5.6) % Triglycerides 256 H (<150) mg/dL Vital Signs Temperature 37.1 C 10/30/19 11:16 Temperature Source Tympanic 10/30/19 11:16 Pulse 81 10/30/19 11:16 Pulse Rhythm Regular 10/30/19 07:40 Pulse 82 10/29/19 19:40 Respiratory Rate 18 10/30/19 11:16 Respiratory Effort Non-Labored 10/30/19 07:40 Respiratory Depth Normal 10/30/19 07:40 Respiratory Pattern Normal 10/30/19 07:40 Blood Pressure 105/70 10/30/19 11:16 Blood Pressure Mean 70 10/29/19 19:30 Pulse Oximetry 97 10/30/19 11:16 Oxygen Delivery Method Room Air 10/30/19 11:16 Oxygen Flow Rate 0 10/30/19 11:16 Pain Level 7 10/30/19 11:16 Intake & Output 10/29/19 10/29/19 10/30/19 11:59 23:59 11:59 Intake Total 229 / 229 240 / 240 Output Total 750 / 750 Balance 229 / 229 -510 / -510 Weight 62.9 kg 63.8 kg Intake: IV Oral 200 / 200 240 / 240 Output: Urine 750 / 750 Other: Urine Color Straw Urine Appearance Clear Urine Odor Strong Comment pt flushed. took the hat out Stool Size Moderate Stool Characteristics Formed Voiding Methods Toilet Toilet Laboratory Results WBC 9.65 10^3/uL (4.4-10.8) 10/29/19 17:20 RBC 4.70 10^6/uL (3.93-5.22) 10/29/19 17:20 Hgb 14.4 g/dL (11.2-15.7) 10/29/19 17:20 Hct 42.7 % (36.0-46.0) 10/29/19 17:20 MCV 90.9 fL (80-95) 10/29/19 17:20 MCH 30.6 pg (27.0-33.0) 10/29/19 17:20 MCHC 33.7 % (32.0-36.0) 10/29/19 17:20 RDW 12.2 % (11.7-14.6) 10/29/19 17:20 Plt Count 228 10^3/uL (130-400) 10/29/19 17:20 MPV 11.2 fL (8.0-11.0) H 10/29/19 17:20 Immature Gran % 0.4 10/29/19 17:20 Neutrophils % 69.0 10/29/19 17:20 Lymphocytes % 18.8 10/29/19 17:20 Monocytes % 8.0 10/29/19 17:20 Eosinophils % 3.2 10/29/19 17:20 Basophils % 0.6 10/29/19 17:20 Absolute Neutrophils 6.66 10^3/uL (1.2-6.7) 10/29/19 17:20 Absolute Lymphocytes 1.81 10^3/uL (1.2-3.4) 10/29/19 17:20 Absolute Monocytes 0.77 10^3/uL (0.1-0.8) 10/29/19 17:20 Absolute Eosinophils 0.31 10^3/uL (0.0-0.7) 10/29/19 17:20 Absolute Basophils 0.06 10^3/uL (0.0-0.2) 10/29/19 17:20 D-Dimer 356 ng/mlFEU (<500) 10/29/19 17:20 Sodium 130 mmol/L (136-145) L 10/29/19 17:20 Potassium 4.0 mmol/L (3.5-5.1) 10/29/19 17:20 Chloride 95 mmol/L (98-107) L 10/29/19 17:20 Carbon Dioxide 27.4 mmol/L (21.0-32.0) 10/29/19 17:20 Anion Gap 7.6 mmol/L (3-11) 10/29/19 17:20 BUN 12 mg/dL (7-18) 10/29/19 17:20 Creatinine 1.00 mg/dL (0.55-1.02) 10/29/19 17:20 Estimated GFR/1.73 m2 53.91 (mL/min/1.73m2) 10/29/19 17:20 Glucose 248 mg/dL (74-106) H 10/29/19 17:20 Hemoglobin A1c 8.3 % (3.8-5.6) H 10/30/19 06:35 Calcium 9.4 mg/dL (8.5-10.1) 10/29/19 17:20 Magnesium 1.8 mg/dL (1.8-2.4) 10/29/19 17:20 Total Bilirubin 0.3 mg/dL (0.2-1.0) 10/29/19 17:20 AST 22 U/L (15-37) 10/29/19 17:20 ALT 43 U/L (14-59) 10/29/19 17:20 Alkaline Phosphatase 84 U/L (46-116) 10/29/19 17:20 Troponin I < 0.05 ng/mL (<0.06) 10/29/19 23:15 NT-Pro-B Natriuret Pep 22 pg/mL (<300) 10/29/19 17:00 Total Protein 7.7 g/dL (6.4-8.2) 10/29/19 17:20 Albumin 3.8 g/dL (3.4-5.0) 10/29/19 17:20 Triglycerides 256 mg/dL (<150) H 10/30/19 06:35 Total Cholesterol 160 mg/dL (<200) 10/30/19 06:35 LDL Cholesterol, Calc 67 mg/dL (<100) 10/30/19 06:35 HDL Cholesterol 42 mg/dL (40-60) 10/30/19 06:35
[2019-10-30] MEDS: Ketorolac 15 MG/ML VIAL IVP (12:10)
[2019-10-30 12:44] LABS: COVID-19 RT-PCR UVMMC Result Negative (Negative)
[2019-10-30 12:48] LABS: ESR 26 mm/hr (0-30)
--- NOTE | 2019-10-30 13:24 | PHA.REVIEW ---
Pharmacy Admission Review - Admission Clinical Review (Last Reviewed 10/29/19 @ 23:31 by Rudy Kim) Chest pain (Acute) Breath shortness (Acute) Thyroid lesion (Acute) Atherosclerosis (Acute) Essential hypertension (Acute 01/19/13) Depressive disorder (Acute) adhesive Allergy (Unknown, Verified 10/29/19 17:39) ampicillin Allergy (Unknown, Verified 10/29/19 17:39) cyclobenzaprine Allergy (Unknown, Verified 10/29/19 17:39) erythromycin base Allergy (Unknown, Verified 10/29/19 17:39) Penicillins Allergy (Unknown, Verified 10/29/19 17:39) Sulfa (Sulfonamide Antibiotics) Allergy (Unknown, Verified 10/29/19 17:39) levofloxacin Adverse Reaction (Severe, Verified 10/29/19 17:39) VOMITING,DIARRHEA metformin Adverse Reaction (Intermediate, Verified 10/29/19 17:39) DIARRHEA pregabalin Adverse Reaction (Mild, Verified 10/29/19 17:39) FATIGUE epinephrine Adverse Reaction (Unknown, Verified 10/29/19 17:39) rofecoxib Adverse Reaction (Unknown, Verified 10/29/19 17:39) Height 5 ft 4 in Weight 63.8 kg - Renal Dosing Renal Dosing: BUN 12 mg/dL (7-18) 10/29/19 17:20 Creatinine 1.00 mg/dL (0.55-1.02) 10/29/19 17:20 Medications needing adjustments: Reviewed - Anticoagulation Anticoagulation: Hgb 14.4 g/dL (11.2-15.7) 10/29/19 17:20 Hct 42.7 % (36.0-46.0) 10/29/19 17:20 Plt Count 228 10^3/uL (130-400) 10/29/19 17:20 Creatinine 1.00 mg/dL (0.55-1.02) 10/29/19 17:20 DVT Prohphylaxis: Reviewed Medications: Enoxaparin Therapeutic Anticoagulation: N/A - Opiate Usage Evaluate Pain Scale/Pains Meds: Reviewed Scheduled Bowel Reg ordered if on Opiates?: Yes (PRN ORDERED) - Relevant Labs ESR 26 mm/hr (0-30) 10/30/19 11:55 Sodium 130 mmol/L (136-145) L 10/29/19 17:20 Potassium 4.0 mmol/L (3.5-5.1) 10/29/19 17:20 Chloride 95 mmol/L (98-107) L 10/29/19 17:20 Magnesium 1.8 mg/dL (1.8-2.4) 10/29/19 17:20 Electrolytes, C-Reactive P, ESR: Reviewed - DM Control DM Control: Glucose 248 mg/dL (74-106) H 10/29/19 17:20 Hemoglobin A1c 8.3 % (3.8-5.6) H 10/30/19 06:35 Finger Stick Blood Glucose 226 Finger Stick Blood Glucose 226 Finger Stick Blood Glucose 112 Finger Stick Blood Glucose 112 Insulin Dosing: Reviewed (Lantus 15 units at bedtime, aspart per SS and [facility]) - Heart Failure/ME Heart Failure/ME: Troponin I < 0.05 ng/mL (<0.06) 10/29/19 23:15 NT-Pro-B Natriuret Pep 22 pg/mL (<300) 10/29/19 17:00 EF%, JAYY's, B-Blockers, Diuretics: Reviewed - BP Control BP Control: Blood Pressure 105/70 Blood Pressure 112/56 Blood Pressure 116/62 If elevated: Reviewed - Qtc Review If Elevated: Reviewed (QTc 483) - IV to PO Switch IV Medications: Reviewed - Home Meds Home Med List reviewed: Reviewed Relevent Home Meds Not ordered & why?: glimepiride -- SS insulin ordered - Current meds Current Medication Order Review: Intervened (made some edits per medical apparatus model maker time policy)
[2019-10-30] MEDS: Regadenoson 0.4 MG/5 ML SYR IVP (15:10)
--- NOTE | 2019-10-30 15:17 | PDOC.CMIN ---
- If Service Date Differs Date of service: 10/30/19 Time of Service: 15:17 Care Management Initial Assess REASON FOR HOSPITALIZATION:: Chest Pain PAST MEDICAL HISTORY/PAST SURGICAL HISTORY:: Chronic low back pain, post polio syndrome, depression, CM, diabetic retinopathy, HTN, GERD, hyperplastic polyps stomach, impacted cecum bilateral, insommia, osteoarthritis, sciatic nerve pain, shoulder pain. Surgical Hx: abdmonial hyst, appendectomy, biopsy of breast, bladder surgery, esophageal dilatation PREVIOUS FUNCTIONAL STATUS/SOCIAL/FAMILY SUPPORTS:: Dianne lives alone her family lives close by. She states she is independent and able to complete her own ADL's. She is a retired nurse. She is indepedent with transportation. She states she does not use any ambulatory aids. CURRENT FUNCTIONAL STATUS:: Dianne is sitting up on the side of the bed she is alert and engaged her daughter is present. Dianne is eating dinner and is being discharged home today to follow up with her primary care and specialist. ADVANCE DIRECTIVES:: COLST on file Has patient been provided with info about the portal/API?: Yes Did the patient sign up for the portal?: No CODE STATUS:: Full Code INSURANCE COVERAGE / FINANCIAL ISSUES:: Medicare, Medicaid, AARP CURRENT HOME/COMMUNITY SERVICES/EQUIPMENT:: None PRIMARY CARE PHYSICIAN:: Clemencia Garcia POTENTIAL DISCHARGE NEEDS:: Follow up with primary care, and specility as directed. PATIENT/FAMILY EDUCATION NEEDS:: Discharge limitations, instructions and follow up plan of care including ask me three and self management. ANTICIPATED BARRIERS TO DISCHARGE:: None TRANSPORTATION:: Via private car with family at time of discharge PLAN:: Jazmyne will be discharged home when medically ready per provider. She will be discharged home pending her stress test results.
--- NOTE | 2019-10-30 15:36 | CHAPLAIN ---
Jazymne was sitting up in the chair when I visited. She shared some personal history and told me about her 's recent . They had a few years earlier and so Jazmyne had mixed emotions about his . She sounds well supported by her her children, two of whom live very close by.
[2019-10-30] MEDS: Insulin Aspart 300 UNITS/3 ML PEN SC ×2 (16:34→16:35)
--- NOTE | 2019-10-30 16:59 | W.PM.DS.N ---
Date of service: 10/30/19 Time of Service: 16:59 DS: Diagnosis Discharge Diagnosis (1) Chest pain: Status: Resolved Asessment and Plan: Patient underwent cardiac work-up as noted below. Stress MPI was negative for ischemia as per my telephone discussion with Dr. Caro who read the nuclear portion. CTA of the chest was negative for aneurysm or PE. Was felt that her chest pain was of 2 components one was reproducible costochondral discomfort. The other component is felt to be due to her GERD as it seemed to be reproducible with lying down and associated with coughing spells and dyspnea with lying down. There is recommend the patient have a follow-up with her GI specialist for esophageal manometry and/or EGD. (2) Breath shortness: Status: Resolved Asessment and Plan: As above (3) Gastroesophageal reflux disease with esophagitis: Status: Chronic Asessment and Plan: He is omeprazole was increased from 20 mg daily to 40 mg at bedtime. Follow-up is recommended with her GI specialist as noted above. Discharge Plan Disposition Patient Disposition: HOME Condition: Improving Discharge Details Chief Complaint: SOB Clinical Impression: Chest pain, Breath shortness, Thyroid lesion, Atherosclerosis Reason For Visit: CPJUANIS Admit Date/Time: 10/29/19 19:36 Admit Provider: Rudy Kim Attending Provider: Rudy Kim Primary Care Provider: Clemencia Garcia ED Provider: Mandeep Tejeda Hospital Course Hospital Course: 74-year-old female with history of type 2 diabetes mellitus, essential hypertension, chronic back pain due to degenerative disc disease who presents emergency department upon advice of her PCP because of exertional dyspnea and atypical chest discomfort is been going on for the last few months dating back to April or May. Patient has never had a stress test nor has she had a cardiac history that she is aware of. Patient does have a history of GERD and has had a previous Haydee's fundoplication and is chronically on Nexium. Her chest discomfort is not so much a pain as a pressure feeling that is worse with lying down and associated w/ coughing and dyspnea but is improved with sitting up. However, she is unable to sleep sitting up due to her lower back pains. She is not very ambulatory d/t her chronic low back pain which becomes severe if she is standing or sitting or walking for any prolonged periods. Patient's coronary risk factors include her age, DM, HTN, +/- HLD (she denies having high cholesterol); negative for any smoking history or family hx of premature CAD. (FH w/ multiple members w/ CA including ovarian and breast and stomach/esophageal) Evaluation included an EKG on admission that did not show acute ischemic changes. Serial troponin levels were normal. CTA of the chest did not show any pulmonary embolism nor any acute pulmonary pathology. Incidental finding was a right thyroid lobe 8 mm nodule for which a follow-up thyroid ultrasound should be performed. Echocardiogram and Lexiscan stress MPI were ordered. However an echocardiogram was not able to be performed due to lack of a process environmental technician. Lexiscan stress MPI was performed. Finalized written report is pending however per my discussion with Dr. Caro, radiologist, her MPI study did not show any reversible ischemic changes and her left ventricular ejection fraction of 70% with no wall motion abnormalities. I am still awaiting activities director scouting report on the EKG portion however I reviewed the myself and did not find any ischemic ST or T wave changes. Patient's chest pain is reproducible with chest wall palpation and consistent with costochondritis. Her other symptoms I think are referrable to her GERD including her nocturnal coughing and dyspnea with recumbent position and I recommend she follow-up with her GI specialist at [facility] for esophageal manometry and/or EGD. In the interim she should increase her Nexium from 20 mg daily to 40 mg daily. Home Meds and New Rx's Prescriptions: Continued (DME) pen needle, diabetic [Microdot Insulin Pen Needle] 32 gauge x 5/32 needle See Rx Instructions .ROUTE .MEDSUPPLY Qty: 90 RF: 4 bupropion HCl 150 mg tablet sustained-release 12 hr 150 mg PO BID Qty: 180 RF: 3 multivitamin [Daily Multi-Vitamin] 1 EACH tablet 1 ea PO DAILY RF: 0 One-Per-Day [place]-3 1 EACH capsule,delayed release(DR/EC) 1,000 mg PO HS RF: 0 (DME) blood-glucose meter [OneTouch UltraMini] 1 EACH kit 1 ea Miscellaneous DAILY Qty: 1 RF: 1 narcotic contract RF: 0 cholecalciferol (vitamin D3) 2,000 UNIT tablet 2,000 unit PO DAILY RF: 0 Narcan 4 MG spray,non-aerosol 4 mg NS PRN Qty: 2 RF: 0 acetaminophen 500 mg tablet 500 mg PO TID PRNRF: 0 meclizine 25 mg tablet 25 mg PO BID PRNRF: 0 clotrimazole-betamethasone 1-0.05 % cream 1 applic TP BID RF: 0 glimepiride [Amaryl] 1 mg tablet 1 - 2 mg PO DIRECTED Qty: 270 RF: 4 Lantus Solostar U-100 Insulin 100 unit/mL (3 mL) insulin pen 10 - 30 unit SC DAILY 30 Days Qty: 15 RF: 6 lisinopril-hydrochlorothiazide 20-12.5 mg tablet 1 tab PO DAILY Qty: 90 RF: 3 (DME) blood sugar diagnostic Strip See Dose Instructions .ROUTE .MEDSUPPLY Qty: 300 RF: 6 (DME) lancets [OneTouch Delica Lancets] 33 gauge misc See Dose Instructions .ROUTE .MEDSUPPLY Qty: 300 RF: 4 lidocaine 5 % adhesive patch,medicated 1 patch TP DAILY Qty: 10 RF: 4 lorazepam 0.5 mg tablet 0.25 mg PO HS MDD 0.25mg PRN (Reason: anxiety) Qty: 15 RF: 0 sertraline 50 mg tablet 25 mg PO DAILY Qty: 90 RF: 3 hydrocodone-acetaminophen 10-325 mg tablet 1 tab PO Q8H MDD 30mg PRN (Reason: backpain) Qty: 90 RF: 0 gabapentin 100 mg capsule 200 mg PO HS RF: 0 Changed esomeprazole magnesium 20 mg capsule,delayed release(DR/EC) 40 mg PO HS Qty: 0 RF: 0 Discharge Instructions Instructions: Diet for Stomach Ulcers and Gastritis (GEN), Costochondritis (DC), Thyroid Nodules (DC), Esophageal Spasm (ED) Additional Instructions: Increase your Nexium to 40 mg nightly at bedtime. Avoid meals or snacks within a 2-hour period prior to lying down. Try to sleep in a semi-sitting up position with your head and shoulders at least 30 degrees above the level of your abdomen. See your primary care provider for follow-up and referral to your GI specialist. A follow-up esophageal manometry and/or EGD are recommended to evaluate your GERD. Your stress MPI test was normal. However this does not preclude the potential for future coronary ischemic events particularly given your history of diabetes mellitus and hypertension. It is recommended that you work with your primary care provider to improve your diabetic control as you are glycohemoglobin A1c is elevated at 8.3% which is indicative of poor control of your diabetes mellitus. I have ordered a thyroid ultrasound to be done next week through the radiology department at [facility] to evaluate the right thyroid lobe nodule. Your primary care provider should follow-up on these results and make appropriate referrals to endocrinology. Stand Alone Forms: Nursing Discharge Form Referrals: Clemencia Garcia NP [Primary Care Provider] - (Call the office for a follow-up visit within the next 2 weeks.) Activity:: Activity as Tolerated Equipment/Supplies:: No Equipment Needed Diet:: Carb Counting Discharge Orders Discharge Orders: Discharge Order (Routine); Ordered 10/30/19 Ordered By: Rudy Kim Other Ambulatory Orders: US thyroid (Routine) Timeframe: 1 Week Facility: [facility] - Location: DIAGNOSTIC IMAGING DEPT Ordered By: Rudy Kim Discharge Data Discharge Date/Time-TO BE ENTERED AT DEPARTURE: 10/30/19 17:54 DS: Summary Status at Discharge Functional status at discharge: independent ambulation Overall status at discharge: patient is progressing back to baseline Mental Status: mental status grossly normal Speech and Movement: speech and movement normal Mood: congruent mood Affect: normal affect Time Spent with Patient providing and/or coordinating discharge services: Less than 30 minutes Exam Narrative Exam Narrative: Anxious elderly female who is alert and oriented and in no acute respiratory distress. Neck exam reveals no accessory muscle use. Lungs are clear to auscultation Chest wall is tender to palpation over the costosternal junction particularly on the left Heart is regular rate and rhythm Abdomen soft with some mild epigastric tenderness no guarding. Extremities without peripheral edema Psych Mental Status: mental status grossly normal Speech and Movement: speech and movement normal Mood: congruent mood Affect: normal affect DS: Data Vitals/I&O Vitals and I&O: Vital Signs Temperature 37.1 C 10/30/19 11:16 Temperature Source Tympanic 10/30/19 11:16 Pulse 81 10/30/19 11:16 Pulse Rhythm Regular 10/30/19 13:30 Pulse 82 10/29/19 19:40 Respiratory Rate 18 10/30/19 11:16 Respiratory Effort Non-Labored 10/30/19 13:30 Respiratory Depth Normal 10/30/19 13:30 Respiratory Pattern Normal 10/30/19 13:30 Blood Pressure 105/70 10/30/19 11:16 Blood Pressure Mean 70 10/29/19 19:30 Pulse Oximetry 97 10/30/19 11:16 Oxygen Delivery Method Room Air 10/30/19 11:16 Oxygen Flow Rate 0 10/30/19 11:16 Pain Level 7 10/30/19 11:16 Intake & Output 10/29/19 10/30/19 10/30/19 23:59 11:59 23:59 Intake Total 229 / 229 240 / 240 Output Total 750 / 750 Balance 229 / 229 -510 / -510 Weight 62.9 kg 63.8 kg Intake: IV Oral 200 / 200 240 / 240 Output: Urine 750 / 750 Other: Urine Color Straw Urine Appearance Clear Clear Urine Odor Strong Comment pt flushed. took the hat out Stool Size Moderate Stool Characteristics Formed Voiding Methods Toilet Toilet Data Completed and Pending Labs on day of discharge: Labs from last 24 hours 10/30/19 10/30/19 10/30/19 11:55 06:35 06:35 WBC RBC Hgb Hct MCV MCH MCHC RDW Plt Count MPV Immature Gran % Neutrophils % Lymphocytes % Monocytes % Eosinophils % Basophils % Absolute Neutrophils Absolute Lymphocytes Absolute Monocytes Absolute Eosinophils Absolute Basophils ESR 26 D-Dimer Sodium Potassium Chloride Carbon Dioxide Anion Gap BUN Creatinine Estimated GFR/1.73 m2 Glucose Hemoglobin A1c 8.3 H Calcium Magnesium Total Bilirubin AST ALT Alkaline Phosphatase Troponin I NT-Pro-B Natriuret Pep Total Protein Albumin Triglycerides 256 H Total Cholesterol 160 LDL Cholesterol, Calc 67 HDL Cholesterol 42 COVID-19 PCR Nasopharyn COVID-19 PCR Ref Test Perform Site 10/29/19 10/29/19 10/29/19 23:15 20:55 20:00 WBC RBC Hgb Hct MCV MCH MCHC RDW Plt Count MPV Immature Gran % Neutrophils % Lymphocytes % Monocytes % Eosinophils % Basophils % Absolute Neutrophils Absolute Lymphocytes Absolute Monocytes Absolute Eosinophils Absolute Basophils ESR D-Dimer Sodium Potassium Chloride Carbon Dioxide Anion Gap BUN Creatinine Estimated GFR/1.73 m2 Glucose Hemoglobin A1c Calcium Magnesium Total Bilirubin AST ALT Alkaline Phosphatase Troponin I < 0.05 < 0.05 NT-Pro-B Natriuret Pep Total Protein Albumin Triglycerides Total Cholesterol LDL Cholesterol, Calc HDL Cholesterol COVID-19 PCR Negative Nasopharyn COVID-19 PCR Not Applicable Ref Test Perform Site [place] [facility] 10/29/19 10/29/19 10/29/19 17:20 17:20 17:20 WBC 9.65 RBC 4.70 Hgb 14.4 Hct 42.7 MCV 90.9 MCH 30.6 MCHC 33.7 RDW 12.2 Plt Count 228 MPV 11.2 H Immature Gran % 0.4 Neutrophils % 69.0 Lymphocytes % 18.8 Monocytes % 8.0 Eosinophils % 3.2 Basophils % 0.6 Absolute Neutrophils 6.66 Absolute Lymphocytes 1.81 Absolute Monocytes 0.77 Absolute Eosinophils 0.31 Absolute Basophils 0.06 ESR D-Dimer 356 Sodium 130 L Potassium 4.0 Chloride 95 L Carbon Dioxide 27.4 Anion Gap 7.6 BUN 12 Creatinine 1.00 Estimated GFR/1.73 m2 53.91 Glucose 248 H Hemoglobin A1c Calcium 9.4 Magnesium 1.8 Total Bilirubin 0.3 AST 22 ALT 43 Alkaline Phosphatase 84 Troponin I < 0.05 NT-Pro-B Natriuret Pep Total Protein 7.7 Albumin 3.8 Triglycerides Total Cholesterol LDL Cholesterol, Calc HDL Cholesterol COVID-19 PCR Nasopharyn COVID-19 PCR Ref Test Perform Site 10/29/19 17:00 WBC RBC Hgb Hct MCV MCH MCHC RDW Plt Count MPV Immature Gran % Neutrophils % Lymphocytes % Monocytes % Eosinophils % Basophils % Absolute Neutrophils Absolute Lymphocytes Absolute Monocytes Absolute Eosinophils Absolute Basophils ESR D-Dimer Sodium Potassium Chloride Carbon Dioxide Anion Gap BUN Creatinine Estimated GFR/1.73 m2 Glucose Hemoglobin A1c Calcium Magnesium Total Bilirubin AST ALT Alkaline Phosphatase Troponin I NT-Pro-B Natriuret Pep 22 Total Protein Albumin Triglycerides Total Cholesterol LDL Cholesterol, Calc HDL Cholesterol COVID-19 PCR Nasopharyn COVID-19 PCR Ref Test Perform Site [facility] Medical History Advanced directives, counseling/discussion (Acute) Cardiac symptoms (Acute) Chronic low back pain with left-sided sciatica (Chronic 02/12/14) [facility] MRI 05/03 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 Uses Lidocaine patches and Hydrocodone 10-325 up to TID PRN. She continues to walk for exercise. Also uses 200g Gabapentin QD. 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 Controlled substance agreement renewed-kb Depressive disorder (Acute) Diabetes mellitus (Chronic 06/13/12) Diabetic foot with normal protective sensation, peripheral vasculature, and bone structure (Acute) Diabetic retinopathy (Chronic ~01/08/18) 01/08/18; [facility]; MILD B/L-kb Essential hypertension (Acute 01/19/13) Fibrocystic disease of breast (Acute) left breast bx Gastroesophageal reflux disease with esophagitis (Chronic) h/o esophageal stricture (dilated at [facility]) Grief (Acute) Loss of spouse 05/2019 Hyperplastic polyps of stomach (Chronic) 03/30/15;[facility] Impacted cerumen of both ears (Acute) Insomnia (Chronic) Osteoarthritis (Chronic) Sciatic nerve pain (Acute) Right Shoulder pain, bilateral (Chronic 02/14/07) right shoulder; MRI-DJD/rotator cuff Surgical History Abdominal hysterectomy Appendectomy Biopsy of breast Bladder Surgery DILATION ESOPHAGEAL; MULTIPLE TIMES DISC SURGERY Reduction mammoplasty (~2001) Family History Brother Essential hypertension Brother No problems noted. Mother Essential hypertension Personal history of malignant neoplasm colon and throat Father Heart disease Sister Diabetes Essential hypertension Sister Essential hypertension Sister No problems noted. Maternal Aunts Personal history of malignant neoplasm Breast Cancer Other Family hx-breast malignancy Social History Smoking/Tobacco Use Status: Never Second Hand Exposure: No Alcohol Intake: never current occupation: CAREGIVER Duration: 30-45 minutes/day Frequency: 3-4 times per week Do you feel safe at home: Yes Do you feel safe in your relationship?: Yes History History 5 Para 3 Hx # Term Pregnancies 3 Multiple births Hx # Pregnancies Ectopic pregnancies AB induced Hx Number of Living Children 3 AB spontaneous 2
== END 2019-10-30 17:54 | disposition home or self-care (01) ==
LOC: ER 19:19 → MS 20:14
PROVIDERS: Admitting Provider Internal Medicine; Emergency Provider Student in an Organized Health Care Education/Training Program; Visit Provider Internal Medicine
DX: R07.2 Precordial pain (principal); M94.0 Chondrocostal junction syndrome [Tietze]; K21.0 Gastro-esophageal reflux disease with esophagitis; Z87.11 Personal history of peptic ulcer disease; E11.65 Type 2 diabetes mellitus with hyperglycemia; E11.319 Type 2 diabetes mellitus with unspecified diabetic retinopathy without macular edema; Z79.4 Long term (current) use of insulin; Z79.899 Other long term (current) drug therapy; E07.89 Other specified disorders of thyroid
CPT/HCPCS: 36415; 71275; 78452; 80053; 80061; 85652; 93005; 93016; 93018; 94618; 99220; 99226; 99238; 99285; J1650; U0003; 83036; 83735; 83880; 84484; 85025; 85379; 93010; 93017; G0378; J1885; J2785; J3490

== ENCOUNTER 2019-11-03 00:59 | Outpatient (CLI) | payer MEDICARE, MEDICAID, SELFPAY ==
--- NOTE | 2019-11-03 15:39 | DI.US_ITS ---
APPROVED REPORT EXAM: Comprehensive 2D, Doppler, and color-flow Echocardiogram Patient Location: Out-Patient Production Machine Tender: Linda Pagan RDCS (AE) Indications: Chest pain, Dyspnea Other Information Study Quality: Adequate Conclusion Left Ventricle : The left ventricle is normal size. The left ventricular systolic function is normal. The left ventricular ejection fraction is within the normal range. There is normal left ventricular wall thickness. There is normal LV segmental wall motion. The left ventricular diastolic function is normal. LVEF is 60-65%. Right Ventricle : The right ventricle is normal size. The right ventricular systolic function is norm al. The RVSP is 19.2mmHg. Atria: Both atria normal in size. Valves: There are no hemodynamically significant valvular lesions. Great Vessels : The aortic root is normal in size. The ascending aorta is mildly dilated. IVC is norm al in size and collapses >50% with inspiration. Please see remainder of study for further details. Wall motion Left Ventricle The left ventricle is normal size. The left ventricular systolic function is normal. The left ventric ular ejection fraction is within the normal range. There is normal left ventricular wall thickness. T here is normal LV segmental wall motion. The left ventricular diastolic function is normal. There is no ventricular septal defect visualized. LVEF is 60-65%. Right Ventricle The right ventricle is normal size. The right ventricular systolic function is normal. The RVSP is 19 .2mmHg. Atria The left atrium size is normal. The right atrium size is normal. The interatrial septum is intact wit h no evidence for an atrial septal defect. Aortic Valve Aortic valve is trileaflet. There is no aortic valvular stenosis. Trace aortic regurgitation. Mitral Valve Mild mitral annular calcification. No evidence of mitral valve stenosis. Trace mitral regurgitation. Tricuspid Valve The tricuspid valve is normal in structure. There is no tricuspid valve stenosis. Trace tricuspid reg urgitation. Pulmonic Valve The pulmonary valve is normal in structure. There is no pulmonic valvular stenosis. Trace pulmonic re gurgitation. Great Vessels The aortic root is normal in size. The ascending aorta is mildly dilated. IVC is normal in size and c ollapses >50% with inspiration. Pericardium There is no pericardial effusion. 2D Dimensions IVSD d PLAX 0.90 cm F: 0.6-1.0 LV Vol A2C d MOD 62.5 mL LVPW d PLAX 0.91 cm F: 0.6 - 1.0 LV Vol A4C d MOD 63.2 mL LVID d PLAX 4.04 cm F: 3.8 - 5.2 LA vol/ BSA A2C s A-L 22.3 mL/m2 LVDs 2.70 cm F: 2.2 - 3.5 LA vol/ BSA A4C s A-L 16.1 mL/m2 Ao Root d 2.83 cm F: 2.7 - 3.3 LA Vol/ BSA Biplane s A-L 19.0 mL/m2 RA Area A4C 7.45 cm2 LA Area A4C s MOD 11.73 cm2 RA Vol/ BSA A4C s A-L 7.7 mL/m2 LA Area A2C s MOD 13.85 cm2 Ao Asc Diam d 3.29 cm F: 2.3 - 3.1 LV EF A4C MOD 64.5 % LV EF Teichholz 61.3 % LV EF A2C MOD 57.0 % LVEF (Mccullough's) 60.90 % F: 54 - 74 LV EF Biplane MOD 60.9 % LV Volume 51.68 mL F: 46 - 106 SV 39.15 mL LV Volume Index 31.51 mL/m2 F: 29 - 61 SV Index 23.80 mL/m2 LV Vol Biplane MOD 64.3 mL FS 32.40 % M-Mode TAPSE 1.59 cm (M/F) >1.7 LV Diastology MV E' medial 0.080 (>0.07 m/s) E/A Ratio 0.7 LV E/e MED 7.00 (<14) MV E Vmax 0.56 (0.4-1.3 m/s) MV E' lateral 0.067 (>0.1 m/s) MV A Vmax 0.85 (0.4-1.3 m/s) LV E/e LAT 8.35 (<14) MV E/A Ratio 0.64 MV E/E' medial 7.03 MV E/E' lateral 8.35 Aortic Valve LVOT Area 2.91 cm2 AoV Area Vmax 1.78 cm2 LVOT Vmax 0.78 m/s AoV Area/ BSA (Vmax) 1.08 cm2/m2 LVOT Mean Rasheed. 0.61 m/s ANGELA Mean Rasheed. 1.95 cm2 LVOT Peak Grad 2.4 mmHg ANGELA Mean Rasheed. Index 1.18 cm2/m2 LVOT Mean Grad 1.6 mmHg LVOT VTI 0.160 m LVOT Diam s 1.90 cm AoV Vmax 1.27 m/s Velocity Ratio 0.61 AoV Mean Rasheed. 0.92 m/s AoV Peak Grad 6.4 mmHg LVOT SV 46.55 mL AoV Mean Grad 3.6 mmHg AoV VTI 0.216 m AoV Area VTI 2.15 cm2 AoV Area/ BSA (VTI) 1.31 cm/m2 Mitral Valve MV DT 309 (160-240 msec) MV PHT 90 msec MV Area PHT 2.45 cm2 Pulmonary Valve PV Vmax 0.90 (0.5-1.5 m/s) RVOT Peak Gr. 1.28 mmHg PV Peak Grad 3.2 mmHg RVOT Mean Gr. 0.70 mmHg PV Mean Grad 1.6 mmHg RVOT VTI 0.094 m PV VTI 0.134 m RVOT Vmax 0.57 m/s Tricuspid Valve TR Peak Grad 16.2 mmHg TR Vmax 2.01 m/s RA Pressure 3.00 mmHg RVSP (TR) 19.2 mmHg
== END 2019-11-03 01:19 ==
DX: R06.00 Dyspnea, unspecified (principal); R06.02 Shortness of breath; R07.2 Precordial pain
CPT/HCPCS: 93306

== ENCOUNTER 2019-11-03 10:08 | Outpatient (CLI) | payer MEDICARE, MEDICAID, SELFPAY ==
--- NOTE | 2019-11-03 15:30 | DI.US_ITS ---
EXAM: US THYROID CLINICAL HISTORY: Thyroid nodule e07.89. TECHNIQUE: Ultrasound thyroid performed using standard protocol. COMPARISON: No exams were available for comparison FINDINGS: ISTHMUS: mm RIGHT LOBE: Size: cm Echogenicity: Normal. Vascularity: Normal. Nodules: None. LEFT LOBE: Size: cm Echogenicity: Normal. Vascularity: Normal. Nodules: None. OTHER FINDINGS: None. IMPRESSION: Normal sonographic appearance of the thyroid gland. DATA REPOSITORY:
== END 2019-11-03 10:28 ==
PROVIDERS: Visit Provider Internal Medicine
DX: Z86.39 Personal history of other endocrine, nutritional and metabolic disease; R06.00 Dyspnea, unspecified; R06.02 Shortness of breath; R07.2 Precordial pain
CPT/HCPCS: 93306; 76536

== ENCOUNTER 2020-01-06 16:41 | Emergency (ER) | payer MEDICARE, MEDICAID, SELFPAY ==
[2020-01-06] VITALS (27 sets, daily range): BP systolic 127–155; BP diastolic 55–97; PULSE 74–92; RESP 2–48; TEMP 36.6–36.8; O2SAT 92–97
--- NOTE | 2020-01-06 16:30 | RT.EKG_ITS ---
APPROVED REPORT Exam: Resting ECG Patient Location: E HR:88 bpm ECG Measurements Heart Rate 88 AXIS NM 165 P 53 QRSd 80 QRS 17 QT 367 T 78 QTc 445 Conclusion Sinus rhythm...normal P axis, V-rate 60- 99
[2020-01-06] MEDS: Aspirin 81 MG CHEW 324 MG CH (17:23)
[2020-01-06 17:39] LABS: Abs Immature Grans 0.03 10^3/uL (0.0-0.06); Absolute Basophil Count 0.05 10^3/uL (0.0-0.2); Absolute Eosinophil Count 0.35 10^3/uL (0.0-0.7); Absolute Lymphocyte Count 1.72 10^3/uL (1.2-3.4); Absolute Neutrophil Count 5.51 10^3/uL (1.2-6.7); Basophils % 0.6; Eosinophils % 4.2; HCT 38.5 % (36.0-46.0); HGB 13.1 g/dL (11.2-15.7); Immature Grans % 0.4; Lymphocytes % 20.6; MCH 30.9 pg (27.0-33.0); MCV 90.8 fL (80-95); MPV 11.1 fL (8.0-11.0); Monocytes % 8.4; Neutrophils % 65.8; Nucleated RBC 0 %; Platelet Count 217 10^3/uL (130-400); RBC 4.24 10^6/uL (3.93-5.22); RDW 11.9 % (11.7-14.6); RDW-SD 39.5 fL; WBC 8.36 10^3/uL (4.4-10.8)
[2020-01-06 17:50] LABS: Prothrombin Time 10.1 sec (9.3-11.0)
--- NOTE | 2020-01-06 17:52 | DI.RAD_ITS ---
EXAM: XR PORTABLE CHEST AP CLINICAL HISTORY: sob cough TECHNIQUE: 2D digital imaging was performed. COMPARISON: No exams were available for comparison FINDINGS: LUNGS: Clear. No pleural abnormality seen. HEART: Normal. MEDIASTINUM: Normal. OTHER FINDINGS: None. IMPRESSION: No acute pulmonary findings. DATA REPOSITORY: RADIATION DOSE DELIVERED:
--- NOTE | 2020-01-06 18:03 | DI.VRAD_ITS ---
PROCEDURE INFORMATION: Exam: XR Chest, 1 View Exam date and time: 01/06/2020 5:46 PM Age: 74 years old Clinical indication: Shortness of breath TECHNIQUE: Imaging protocol: XR of the chest Views: 1 view. COMPARISON: CT CHEST PE CTA 10/29/2019 6:28 PM FINDINGS: Lungs: Normal pulmonary expansion. Pulmonary vasculature grossly normal. No infiltrates. Pleural space: No pleural effusion. No pneumothorax. Heart/Mediastinum: Heart size normal. No tracheal/mediastinal shift. Bones/joints: No acute osseous abnormalities are identified. IMPRESSION: No acute thoracic process. Dictated and Authenticated by: Winston Dinero MD. Ordering:ELVIA Wiley MD
[2020-01-06 18:08] LABS: ALT 34 U/L (14-59); AST 22 U/L (15-37); Albumin 3.6 g/dL (3.4-5.0); Alkaline Phosphatase 95 U/L (46-116); Anion Gap 7.2 mmol/L (3-11); BUN 11 mg/dL (7-18); Bilirubin, Total 0.3 mg/dL (0.2-1.0); CO2 27.8 mmol/L (21.0-32.0); CREATININE 0.74 mg/dL (0.55-1.02); Calcium 9.3 mg/dL (8.5-10.1); Chloride 96 mmol/L (98-107); Glucose 114 mg/dL (74-106); Magnesium 1.9 mg/dL (1.8-2.4); NT-proBNP 44 pg/mL (<300); Sodium 131 mmol/L (136-145); Total Protein 7.3 g/dL (6.4-8.2)
[2020-01-06 18:17] LABS: D-Dimer 663 ng/mlFEU (<500)
[2020-01-06 18:30] LABS: Procalcitonin < 0.1 ng/mL
[2020-01-06 18:31] LABS: Troponin I < 0.05 ng/mL (<0.06)
--- NOTE | 2020-01-06 18:51 | W.ED.GENAD ---
Discharge Plan Disposition Patient Disposition: HOME Condition: Fair Discharge Details Clinical Impression: Cough Primary Care Provider: Clemencia Garcia ED Provider: Inez Hartman Home Meds and New Rx's Prescriptions: New montelukast 10 mg tablet 10 mg PO DAILY Qty: 30 RF: 0 Continued (DME) pen needle, diabetic [Microdot Insulin Pen Needle] 32 gauge x 5/32 needle See Rx Instructions .ROUTE .MEDSUPPLY Qty: 90 RF: 4 bupropion HCl 150 mg tablet sustained-release 12 hr 150 mg PO BID Qty: 180 RF: 3 Tradjenta 5 mg tablet 5 mg PO DAILY Qty: 90 RF: 3 glimepiride 1 mg tablet 1 mg PO QPM Qty: 30 RF: 1 esomeprazole magnesium 40 mg capsule,delayed release(DR/EC) 40 mg PO BID Qty: 180 RF: 3 multivitamin [Daily Multi-Vitamin] 1 EACH tablet 1 ea PO DAILY RF: 0 One-Per-Day Eastman-3 1 EACH capsule,delayed release(DR/EC) 1,000 mg PO HS RF: 0 (DME) blood-glucose meter [[employer] UltraMini] 1 EACH kit 1 ea Miscellaneous DAILY Qty: 1 RF: 1 narcotic contract RF: 0 cholecalciferol (vitamin D3) 2,000 UNIT tablet 2,000 unit PO DAILY RF: 0 Narcan 4 MG spray,non-aerosol 4 mg NS PRN Qty: 2 RF: 0 acetaminophen 500 mg tablet 500 mg PO TID PRNRF: 0 meclizine 25 mg tablet 25 mg PO BID PRNRF: 0 clotrimazole-betamethasone 1-0.05 % cream 1 applic TP BID RF: 0 Lantus Solostar U-100 Insulin 100 unit/mL (3 mL) insulin pen 10 - 30 unit SC DAILY 30 Days Qty: 15 RF: 6 lisinopril-hydrochlorothiazide 20-12.5 mg tablet 1 tab PO DAILY Qty: 90 RF: 3 (DME) blood sugar diagnostic Strip See Dose Instructions .ROUTE .MEDSUPPLY Qty: 300 RF: 6 (DME) lancets [UltiZenuch Delica Lancets] 33 gauge misc See Dose Instructions .ROUTE .MEDSUPPLY Qty: 300 RF: 4 lidocaine 5 % adhesive patch,medicated 1 patch TP DAILY Qty: 10 RF: 4 lorazepam 0.5 mg tablet 0.25 mg PO HS MDD 0.25mg PRN (Reason: anxiety) Qty: 15 RF: 0 sertraline 50 mg tablet 25 mg PO DAILY Qty: 90 RF: 3 hydrocodone-acetaminophen 10-325 mg tablet 1 tab PO Q8H MDD 30mg PRN (Reason: backpain) Qty: 90 RF: 0 gabapentin 100 mg capsule 200 mg PO HS RF: 0 Discharge Instructions Instructions: Dyspnea (ED), Acute Cough (ED) Additional Instructions: resume your medications as directed try montelukast daily as directed you can use albuterol inhaler with spacer as directed every 4 hours if needed for cough or shortness of breath. discuss lisinopril with pcp, maybe contributing to cough. Referrals: Clemencia Garcia NP [Primary Care Provider] - (call in am for follow up appointment keep pulmonary appointment as scheduled) Medical Decision Making Patient presents with longstanding cough and shortness of breath approximately 10 weeks. Hospitalization in October with evaluation that included included an EKG on admission that did not show acute ischemic changes. Serial troponin levels were normal. CTA of the chest did not show any pulmonary embolism nor any acute pulmonary pathology. Incidental finding was a right thyroid lobe 8 mm nodule for which a follow-up thyroid ultrasound should be performed. Echocardiogram and Lexiscan stress MPI that did not show any reversible ischemic changes and her left ventricular ejection fraction of 70% with no wall motion abnormalities discharged to follow-up outpatient with pulmonology who states that her symptoms persist so returns for evaluation. Will obtain chest x-ray, D-dimer BNP CMP CBC and Covid testing which is still pending. Rest of her labs and x-ray were all unremarkable. She is currently being treated for GERD with omeprazole. I will trial albuterol as needed and montelukast daily while she awaits her pulmonary work-up. Symptoms could be due to a cough variant asthma or environmental allergy. Also discussed lisinopril as etiology and advised her to discuss this with her primary care provider. Is hemodynamically stable and oxygenating well on room air and is safe for discharge to home to resume previous medications and outpatient work-up as previously arranged Medical Records Medical records reviewed: Yes I reviewed the patient's medical records. Imaging Data Radiologic Study: Attestation: I personally reviewed and interpreted this imaging study as follows: Imaging: X-Ray (Chest) My impression: No acute cardiopulmonary findings Lab Data Lab results reviewed: Yes I reviewed the patient's lab results. Lab results narrative: Laboratory Results - last 24 hr 01/06/20 01/06/20 01/06/20 17:18 17:18 17:18 WBC 8.36 RBC 4.24 Hgb 13.1 Hct 38.5 MCV 90.8 MCH 30.9 MCHC 34.0 RDW 11.9 Plt Count 217 MPV 11.1 H Immature Gran % 0.4 Neutrophils % 65.8 Lymphocytes % 20.6 Monocytes % 8.4 Eosinophils % 4.2 Basophils % 0.6 Nucleated RBC % 0 Absolute Neutrophils 5.51 Absolute Lymphocytes 1.72 Absolute Monocytes 0.70 Absolute Eosinophils 0.35 Absolute Basophils 0.05 PT 10.1 INR 1.0 D-Dimer 663 H Sodium 131 L Potassium 4.0 Chloride 96 L Carbon Dioxide 27.8 Anion Gap 7.2 BUN 11 Creatinine 0.74 Estimated GFR/1.73 m2 >= 60.00 Glucose 114 H Calcium 9.3 Magnesium 1.9 Total Bilirubin 0.3 AST 22 ALT 34 Alkaline Phosphatase 95 Troponin I < 0.05 NT-Pro-B Natriuret Pep 44 Total Protein 7.3 Albumin 3.6 Procalcitonin 01/06/20 17:18 WBC RBC Hgb Hct MCV MCH MCHC RDW Plt Count MPV Immature Gran % Neutrophils % Lymphocytes % Monocytes % Eosinophils % Basophils % Nucleated RBC % Absolute Neutrophils Absolute Lymphocytes Absolute Monocytes Absolute Eosinophils Absolute Basophils PT INR D-Dimer Sodium Potassium Chloride Carbon Dioxide Anion Gap BUN Creatinine Estimated GFR/1.73 m2 Glucose Calcium Magnesium Total Bilirubin AST ALT Alkaline Phosphatase Troponin I NT-Pro-B Natriuret Pep Total Protein Albumin Procalcitonin < 0.1 HPI General Date/Time Provider Initiated Documentation: 01/06/20 16:51. Limitations to Documentation: no limitations. Information obtained by: patient. HPI Narrative: Patient presents with ongoing cough and shortness of breath. She has had no fevers no recent sick contacts with similar symptoms. Her cough is hacking and nonproductive. She had a recent hospitalization and cardiac work-up were which were unremarkable. She was referred to outpatient pulmonology but appointment is not scheduled until February. She presents tonight for on going symptoms. She did report some left-sided chest heaviness but this has resolved spontaneously. Related Data Home Medications Medication Instructions Recorded Confirmed One-Per-Day Eastman-3 1,000 mg PO HS 06/12/12 01/06/20 multivitamin [Daily Multi-Vitamin] 1 ea PO DAILY 06/12/12 01/06/20 blood-glucose meter [OneTouch #1 kit 02/05/13 01/06/20 UltraMini] cholecalciferol (vitamin D3) 2,000 unit PO DAILY 05/10/15 01/06/20 Narcan 4 mg NS PRN #2 spray 12/24/16 01/06/20 acetaminophen 500 mg tablet 500 mg PO TID PRN tab 11/25/17 01/06/20 clotrimazole-betamethasone 1 1 applic TP BID 11/25/17 01/06/20 %-0.05 % topical cream meclizine 25 mg tablet 25 mg PO BID PRN 11/25/17 01/06/20 insulin glargine 100 unit/mL (3 10 - 30 unit SC DAILY 30 Days #15 05/05/19 01/06/20 mL) subcutaneous pen ml lisinopril 20 1 tab PO DAILY #90 tab 05/12/19 01/06/20 mg-hydrochlorothiazide 12.5 mg tablet bupropion HCl 150 mg tablet,12 hr 150 mg PO BID #180 tab 06/09/19 01/06/20 sustained-release pen needle, diabetic 32 gauge x #90 each 07/09/19 01/06/20 blood sugar diagnostic #300 each 07/14/19 01/06/20 lancets 33 gauge #300 each 07/14/19 01/06/20 lidocaine 5 % topical patch 1 patch TP DAILY #10 each 08/06/19 01/06/20 lorazepam 0.5 mg tablet 0.25 mg PO HS PRN #15 tab MDD 10/06/19 01/06/20 0.25mg sertraline 50 mg tablet 25 mg PO DAILY #90 tab 10/12/19 01/06/20 gabapentin 200 mg PO HS 10/29/19 01/06/20 linagliptin 5 mg tablet 5 mg PO DAILY #90 tab 11/26/19 01/06/20 glimepiride 1 mg tablet 1 mg PO QPM #30 tab 12/09/19 01/06/20 esomeprazole magnesium 40 mg 40 mg PO BID #180 cap 10/15/20 10/21/20 capsule,delayed release hydrocodone 10 mg-acetaminophen 1 tab PO Q8H PRN #90 tab MDD 30mg 12/31/19 01/06/20 325 mg tablet montelukast 10 mg PO DAILY #30 tab 01/06/20 Previous Rx's Medication Instructions Recorded Narcan 4 mg NS PRN #2 spray 12/24/16 insulin glargine 100 unit/mL (3 10 - 30 unit SC DAILY 30 Days #15 05/05/19 mL) subcutaneous pen ml lisinopril 20 1 tab PO DAILY #90 tab 05/12/19 mg-hydrochlorothiazide 12.5 mg tablet bupropion HCl 150 mg tablet,12 hr 150 mg PO BID #180 tab 06/09/19 sustained-release pen needle, diabetic 32 gauge x #90 each 07/09/19 blood sugar diagnostic #300 each 07/14/19 lancets 33 gauge #300 each 07/14/19 lidocaine 5 % topical patch 1 patch TP DAILY #10 each 08/06/19 lorazepam 0.5 mg tablet 0.25 mg PO HS PRN #15 tab MDD 10/06/19 0.25mg sertraline 50 mg tablet 25 mg PO DAILY #90 tab 10/12/19 linagliptin 5 mg tablet 5 mg PO DAILY #90 tab 11/26/19 glimepiride 1 mg tablet 1 mg PO QPM #30 tab 12/09/19 esomeprazole magnesium 40 mg 40 mg PO BID #180 cap 12/31/19 capsule,delayed release hydrocodone 10 mg-acetaminophen 1 tab PO Q8H PRN #90 tab MDD 30mg 12/31/19 325 mg tablet montelukast 10 mg PO DAILY #30 tab 01/06/20 Allergies Allergy/AdvReac Type Severity Reaction Status Date / Time adhesive Allergy Unknown Verified 01/06/20 17:27 ampicillin Allergy Unknown Verified 01/06/20 17:27 cyclobenzaprine Allergy Unknown Verified 01/06/20 17:27 erythromycin base Allergy Unknown Verified 01/06/20 17:27 Penicillins Allergy Unknown Verified 01/06/20 17:27 Sulfa (Sulfonamide Allergy Unknown Verified 01/06/20 17:27 Antibiotics) levofloxacin AdvReac Severe VOMITING,DI Verified 01/06/20 17:27 ARRHEA metformin AdvReac Intermediate DIARRHEA Verified 01/06/20 17:27 pregabalin AdvReac Mild FATIGUE Verified 01/06/20 17:27 epinephrine AdvReac Unknown Verified 01/06/20 17:27 rofecoxib AdvReac Unknown Verified 12/01/19 13:01 General Stated Complaint: GenMedical PTEER: 3 Review of Systems Constitutional Constitutional: Denies chills and Denies fever(s) ENT Ears, Nose, Mouth, and Throat: Denies vertigo and Denies dizziness Cardiovascular Cardiovascular: Denies rapid heart rate, Denies edema, Denies leg edema, Denies lightheadedness, Reports dyspnea and Denies dyspnea on exertion Respiratory Respiratory: Denies chest congestion, Reports cough, Denies hemoptysis, Reports dyspnea, Denies dyspnea on exertion and Denies wheezing Gastrointestinal Gastrointestinal: Denies abdominal pain, Denies heartburn, Denies nausea and Denies vomiting Neurologic Neurologic: Denies vertigo and Denies dizziness Allergic/Immunologic Allergic/Immunologic: Denies wheezing [facility] Medical History (Updated 01/06/20 @ 18:53 by Inez Hartman NP) Advanced directives, counseling/discussion Cardiac symptoms Chronic low back pain with left-sided sciatica (02/12/14) [facility] [place] MRI 05/03 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 Uses Lidocaine patches and Hydrocodone 10-325 up to TID PRN. She continues to walk for exercise. Also uses 200g Gabapentin QD. 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 Controlled substance agreement renewed-kb Depressive disorder Diabetes mellitus (06/13/12) Diabetic foot with normal protective sensation, peripheral vasculature, and bone structure Diabetic retinopathy (~01/08/18) 01/08/18; ANDRIY; MILD B/L-kb Essential hypertension (01/19/13) Fibrocystic disease of breast left breast bx Gastroesophageal reflux disease with esophagitis h/o esophageal stricture (dilated at [facility] [place]) Grief Loss of spouse 05/2019 Hyperplastic polyps of stomach 03/30/15;[facility] [place] Impacted cerumen of both ears Insomnia Osteoarthritis Sciatic nerve pain Right Shoulder pain, bilateral (02/14/07) right shoulder; MRI-DJD/rotator cuff Surgical History Abdominal hysterectomy Appendectomy Biopsy of breast Bladder Surgery DILATION ESOPHAGEAL; MULTIPLE TIMES DISC SURGERY Reduction mammoplasty (~2001) Family History Brother Essential hypertension Brother No problems noted. Mother Essential hypertension Personal history of malignant neoplasm colon and throat Father Heart disease Sister Diabetes Essential hypertension Sister Essential hypertension Sister No problems noted. Maternal Aunts Personal history of malignant neoplasm Breast Cancer Other Family hx-breast malignancy Social History Smoking/Tobacco Use Status: Never Second Hand Exposure: No Alcohol Intake: never Drug use: Never Substance use type: does not use current occupation: CAREGIVER Duration: 30-45 minutes/day Frequency: 3-4 times per week Do you feel safe at home: Yes Do you feel safe in your relationship?: Yes History History 5 Para 3 Hx # Term Pregnancies 3 Multiple births Hx # Pregnancies Ectopic pregnancies AB induced Hx Number of Living Children 3 AB spontaneous 2 Exam Const General: cooperative, healthy appearing, comfortable, no acute distress and well developed Nutritional Appearance: average body habitus and well nourished Orientation: alert, awake and oriented x3 HENMT Head: normal to inspection, normocephalic and atraumatic Mouth: oral mucosae normal Chest Chest: normal inspection of the chest Resp Effort & Inspection: normal respiratory effort, able to speak in complete sentences and cough Quality of cough: dry Auscultation: clear to auscultation bilaterally (Occasional coarse breath sounds right base otherwise clear) Cardio Rate: regular rate Rhythm: regular rhythm Heart Sounds: no murmurs GI Inspection: normal to inspection Palpation: soft Auscultation: normal bowel sounds Skin General skin exam: no rashes or lesions noted Neuro General: patient alert, patient awake and patient oriented x3 Cognition: normal cognition Extrem General: normal to inspection, full ROM and no pedal edema Course Vital Signs Vital signs: Vital Signs Respiratory Rate 24 01/06/20 16:48 Pulse Oximetry 93 01/06/20 16:48 Temperature 36.8 C 01/06/20 16:49 Temperature Source Skin 01/06/20 16:49 Pulse 78 01/06/20 18:00 Pulse 77 01/06/20 18:10 Respiratory Rate 11 L 01/06/20 18:10 Respiratory Effort 01/06/20 17:35 Respiratory Depth Shallow 01/06/20 17:35 Respiratory Pattern Tachypnea 01/06/20 17:35 Blood Pressure 135/58 L 01/06/20 18:00 Blood Pressure Mean 78 01/06/20 18:00 Blood Pressure Position Sitting 01/06/20 16:49 Pulse Oximetry 93 01/06/20 18:10 Oxygen Delivery Method Room Air 01/06/20 16:49 Oxygen Flow Rate 0 01/06/20 16:49 Lab/Test Results Lab/Test Results: Laboratory Tests Range/Units 01/06/20 01/06/20 01/06/20 17:18 17:18 17:18 WBC (4.4-10.8) 10^3/uL 8.36 RBC (3.93-5.22) 10^6/uL 4.24 Hgb (11.2-15.7) g/dL 13.1 Hct (36.0-46.0) % 38.5 MCV (80-95) fL 90.8 MCH (27.0-33.0) pg 30.9 MCHC (32.0-36.0) % 34.0 RDW (11.7-14.6) % 11.9 Plt Count (130-400) 10^3/uL 217 MPV (8.0-11.0) fL 11.1 H Immature Gran % 0.4 Neutrophils % 65.8 Lymphocytes % 20.6 Monocytes % 8.4 Eosinophils % 4.2 Basophils % 0.6 Nucleated RBC % % 0 Absolute Neutrophils (1.2-6.7) 10^3/uL 5.51 Absolute Lymphocytes (1.2-3.4) 10^3/uL 1.72 Absolute Monocytes (0.1-0.8) 10^3/uL 0.70 Absolute Eosinophils (0.0-0.7) 10^3/uL 0.35 Absolute Basophils (0.0-0.2) 10^3/uL 0.05 PT (9.3-11.0) sec 10.1 INR (0.9-1.1) 1.0 D-Dimer (<500) ng/mlFEU 663 H Sodium (136-145) mmol/L 131 L Potassium (3.5-5.1) mmol/L 4.0 Chloride (98-107) mmol/L 96 L Carbon Dioxide (21.0-32.0) mmol/L 27.8 Anion Gap (3-11) mmol/L 7.2 BUN (7-18) mg/dL 11 Creatinine (0.55-1.02) mg/dL 0.74 Estimated GFR/1.73 m2 (mL/min/1.73m2) >= 60.00 Glucose (74-106) mg/dL 114 H Calcium (8.5-10.1) mg/dL 9.3 Magnesium (1.8-2.4) mg/dL 1.9 Total Bilirubin (0.2-1.0) mg/dL 0.3 AST (15-37) U/L 22 ALT (14-59) U/L 34 Alkaline Phosphatase (46-116) U/L 95 Troponin I (<0.06) ng/mL < 0.05 NT-Pro-B Natriuret Pep (<300) pg/mL 44 Total Protein (6.4-8.2) g/dL 7.3 Albumin (3.4-5.0) g/dL 3.6 Procalcitonin ng/mL Range/Units 01/06/20 17:18 WBC (4.4-10.8) 10^3/uL RBC (3.93-5.22) 10^6/uL Hgb (11.2-15.7) g/dL Hct (36.0-46.0) % MCV (80-95) fL MCH (27.0-33.0) pg MCHC (32.0-36.0) % RDW (11.7-14.6) % Plt Count (130-400) 10^3/uL MPV (8.0-11.0) fL Immature Gran % Neutrophils % Lymphocytes % Monocytes % Eosinophils % Basophils % Nucleated RBC % % Absolute Neutrophils (1.2-6.7) 10^3/uL Absolute Lymphocytes (1.2-3.4) 10^3/uL Absolute Monocytes (0.1-0.8) 10^3/uL Absolute Eosinophils (0.0-0.7) 10^3/uL Absolute Basophils (0.0-0.2) 10^3/uL PT (9.3-11.0) sec INR (0.9-1.1) D-Dimer (<500) ng/mlFEU Sodium (136-145) mmol/L Potassium (3.5-5.1) mmol/L Chloride (98-107) mmol/L Carbon Dioxide (21.0-32.0) mmol/L Anion Gap (3-11) mmol/L BUN (7-18) mg/dL Creatinine (0.55-1.02) mg/dL Estimated GFR/1.73 m2 (mL/min/1.73m2) Glucose (74-106) mg/dL Calcium (8.5-10.1) mg/dL Magnesium (1.8-2.4) mg/dL Total Bilirubin (0.2-1.0) mg/dL AST (15-37) U/L ALT (14-59) U/L Alkaline Phosphatase (46-116) U/L Troponin I (<0.06) ng/mL NT-Pro-B Natriuret Pep (<300) pg/mL Total Protein (6.4-8.2) g/dL Albumin (3.4-5.0) g/dL Procalcitonin ng/mL < 0.1
[2020-01-06] MEDS: Inhaler, Assist Device 1 EACH MC (19:21)
[2020-01-07 00:37] LABS: COVID-19 RT-PCR UVMMC Result Negative (Negative)
== END 2020-01-06 19:30 | disposition home or self-care (01) ==
PROVIDERS: Emergency Provider Nurse Practitioner Acute Care
DX: R06.02 Shortness of breath (principal); R05 Cough; E11.9 Type 2 diabetes mellitus without complications; Z79.4 Long term (current) use of insulin; I10 Essential (primary) hypertension
CPT/HCPCS: 36415; 80053; 84145; 93005; 99285; U0003; 71045; 83735; 83880; 84484; 85025; 85379; 85610; 93010; 99284

== ENCOUNTER 2020-02-18 01:02 | Outpatient (CLI) | payer MEDICARE, MEDICAID, SELFPAY ==
--- NOTE | 2020-02-18 14:57 | DI.RAD_ITS ---
EXAM: XR KNEE LT 3V AP,LAT,SARAH CLINICAL HISTORY: left knee pain without known injury,[id number]. TECHNIQUE: 2D digital imaging was performed. COMPARISON: No exams were available for comparison FINDINGS: There is mild narrowing of the medial femoral tibial joint space. There is minimal periarticular spu rring. There is slight spurring at the quadriceps insertion on the patella. No joint effusion is se en. IMPRESSION: Mild degenerative changes. DATA REPOSITORY: RADIATION DOSE DELIVERED:
== END 2020-02-18 01:22 ==
DX: M17.12 Unilateral primary osteoarthritis, left knee (principal)
CPT/HCPCS: 73562

== ENCOUNTER 2020-02-26 05:01 | Outpatient (CLI) | payer MEDICARE, MEDICAID, SELFPAY ==
[2020-02-26 12:54] LABS: Hemoglobin A1C 7.3 % (<5.7)
[2020-02-26 13:21] LABS: ALT 34 U/L (14-59); AST 22 U/L (15-37); Albumin 3.8 g/dL (3.4-5.0); Alkaline Phosphatase 75 U/L (46-116); Anion Gap 9.2 mmol/L (3-11); BUN 8 mg/dL (7-18); Bilirubin, Total 0.4 mg/dL (0.2-1.0); CO2 28.8 mmol/L (21.0-32.0); CREATININE 0.96 mg/dL (0.55-1.02); Calcium 9.3 mg/dL (8.5-10.1); Calculated LDL 70 mg/dL (<100); Chloride 94 mmol/L (98-107); Cholesterol 163 mg/dL (<200); Estimated GFR 56.51 (mL/min/1.73m2); Glucose 284 mg/dL (74-106); HDL Cholesterol 52 mg/dL (40-60); Potassium 4.3 mmol/L (3.5-5.1); Sodium 132 mmol/L (136-145); Total Protein 7.2 g/dL (6.4-8.2); Triglyceride 208 mg/dL (<150)
== END 2020-02-26 05:21 ==
DX: E11.9 Type 2 diabetes mellitus without complications (principal); E03.9 Hypothyroidism, unspecified; I10 Essential (primary) hypertension; F32.9 Major depressive disorder, single episode, unspecified; G89.29 Other chronic pain
CPT/HCPCS: 36415; 80053; 80061; 82043; 82570; 83036

== ENCOUNTER 2020-10-18 11:45 | Outpatient (CLI) | payer MEDICARE, MEDICAID, SELFPAY ==
--- NOTE | 2020-10-18 11:15 | DI.RAD_ITS ---
Exam(s) XR SHOULDER LT COMPLETE 2+V EXAM: XR SHOULDER LT COMPLETE 2+V CLINICAL HISTORY: left shoulder pain TECHNIQUE: COMPARISON: CR RIGHT SHOULDER COMPLETE from 06/26/2013 FINDINGS: Two views were obtained. There is narrowing of the cartilaginous joint space of the glenohumeral tete nt. There are moderate marginal osteophytes of the glenoid and humeral head. Mild hypertrophic dege nerative changes the acromioclavicular joint also appear to be present. No other significant bony ab normality seen. IMPRESSION: Degenerative changes as described above. RADIATION DOSE DELIVERED: Total DLP
== END 2020-10-18 11:46 | disposition home or self-care (01) ==
LOC: DIORS 11:45
PROVIDERS: Visit Provider Student in an Organized Health Care Education/Training Program
DX: M25.512 Pain in left shoulder (principal); S49.82XA Other specified injuries of left shoulder and upper arm, initial encounter; T50.Z95A Adverse effect of other vaccines and biological substances, initial encounter
CPT/HCPCS: 20610; 99203; 99213; 73030; J1040

== ENCOUNTER 2021-01-03 02:53 | Outpatient (CLI) | payer MEDICARE, MEDICAID, SELFPAY ==
[2021-01-03 11:41] LABS: Hemoglobin A1C 6.9 % (<5.7)
[2021-01-03 11:49] LABS: Iron 81 ug/dL (50-170)
[2021-01-03 12:02] LABS: ALT 34 U/L (14-59); AST 20 U/L (15-37); Albumin 3.8 g/dL (3.4-5.0); Alkaline Phosphatase 85 U/L (46-116); Anion Gap 5.2 mmol/L (3-11); BUN 12 mg/dL (7-18); Bilirubin, Total 0.4 mg/dL (0.2-1.0); CO2 31.8 mmol/L (21.0-32.0); CREATININE 0.8 mg/dL (0.55-1.02); Calcium 9.4 mg/dL (8.5-10.1); Chloride 101 mmol/L (98-107); Ferritin 76 ng/mL (8-252); Glucose 157 mg/dL (74-106); Potassium 4.4 mmol/L (3.5-5.1); Sodium 138 mmol/L (136-145); Total Protein 7.3 g/dL (6.4-8.2)
== END 2021-01-03 02:54 | disposition home or self-care (01) ==
LOC: LBO 02:53
DX: E11.65 Type 2 diabetes mellitus with hyperglycemia; I10 Essential (primary) hypertension; R53.83 Other fatigue; G89.4 Chronic pain syndrome
CPT/HCPCS: 36415; 80053; 82728; 83036; 83540

== ENCOUNTER 2021-04-13 03:32 | Outpatient (CLI) | payer MEDICARE, MEDICAID, SELFPAY ==
[2021-04-13 13:19] LABS: Hemoglobin A1C 7.1 % (<5.7)
== END 2021-04-13 03:33 | disposition home or self-care (01) ==
LOC: LBO 03:32
DX: E11.65 Type 2 diabetes mellitus with hyperglycemia (principal)
CPT/HCPCS: 36415; 83036

== ENCOUNTER → 2021-12-19 01:08 | Outpatient (CLI) | payer MEDICARE, MEDICAID, SELFPAY ==
--- NOTE | 2021-12-19 07:30 | DI.RAD_ITS ---
Exam(s) XR CHEST 2V PA LATERAL EXAM: XR CHEST 2V PA LATERAL CLINICAL HISTORY: left side chest achiness and dyspnea when lying,R06.00. TECHNIQUE: 2D digital imaging was performed. COMPARISON: CR,XR XR PORTABLE CHEST AP from 01/06/2020 FINDINGS: 2 views: Heart size is normal. The mediastinum is not widened. Lungs are clear. No infiltrates nor pleural effusions. IMPRESSION: No acute pulmonary findings. DATA REPOSITORY: RADIATION DOSE DELIVERED:
== END ==
DX: R06.00 Dyspnea, unspecified (principal)
CPT/HCPCS: 71046

== ENCOUNTER 2022-02-10 13:17 | Emergency (ER) | payer MEDICARE, MEDICAID, SELFPAY ==
[2022-02-10 13:32] VITALS: BP 142/78; PULSE 87; RESP 20; TEMP 36.9; O2SAT 97
[2022-02-10 14:42] VITALS: BP 157/90; PULSE 86; TEMP 37.2; O2SAT 94
--- NOTE | 2022-02-10 17:30 | DI.RAD_ITS ---
Exam(s) XR RIBS LT W PA LAT CHEST CLINICAL HISTORY Fall, Left side rib pain. COMPARISON: CR XR CHEST 2V PA LATERAL from 12/19/2021 TECHNIQUE:: PA and lateral views of the chest and four views of the left ribs were performed. FINDINGS: LUNGS: Clear. No pleural abnormality seen. HEART: Normal. MEDIASTINUM: Normal. BONES: No displaced rib fracture is seen. Question of a minimal deformity on one view in the 9th rib . This could represent an acute or old fracture. Degenerative changes are noted in the mid thoracic spine. No compression fractures are seen in the thoracic spine. No bony destructive lesion is seen . OTHER FINDINGS: None. IMPRESSION: 1. Question of a left 9th rib fracture. 2. No acute pulmonary findings.
--- NOTE | 2022-02-10 17:30 | RT.EKG_ITS ---
APPROVED REPORT Exam: Resting ECG Reason for Exam: Chest pain Patient Location: E HR:78 bpm ECG Measurements Heart Rate 78 AXIS AL 168 P 61 QRSd 71 QRS 23 QT 383 T 80 QTc 437 Conclusion Sinus rhythm...normal P axis, V-rate 60- 99
--- NOTE | 2022-02-10 17:31 | ED.GENADUL_ITS ---
Discharge Plan Disposition Patient Disposition: Home Condition: Stable Discharge Details Clinical Impression: Fall, Chest wall contusion Primary Care Provider: Zev Denton ED Provider: Guadalupe Mittal Home Meds and New Rx's Prescriptions: Continued (DME) blood sugar diagnostic Strip See Dose Instructions .ROUTE .MEDSUPPLY Qty: 300 6RF Dose Instruction: As directed Rx Instructions: Check blood sugar tid: Dx E11.9 (DME) blood-glucose meter Kit See Rx Instructions .ROUTE .MEDSUPPLY Qty: 1 0RF Rx Instructions: TID glucose monitoring - E11.9 multivitamin [Daily Multi-Vitamin] 1 EACH tablet 1 ea PO DAILY One-Per-Day [place]-3 1 EACH capsule,delayed release(DR/EC) 1,000 mg PO HS narcotic contract 0RF Rx Instructions: narcotic contract cholecalciferol (vitamin D3) 2,000 UNIT tablet 2,000 unit PO DAILY naloxone [Narcan] 4 MG spray,non-aerosol 4 mg NS PRN Qty: 2 0RF acetaminophen 500 mg tablet 500 mg PO TID PRN sertraline 50 mg tablet 25 mg PO DAILY Qty: 90 3RF insulin glargine [Lantus Solostar U-100 Insulin] 100 unit/mL (3 mL) insulin pen 10 - 30 unit SC DAILY 30 Days Qty: 15 11RF (DME) Hearing Aid Batteries Misc See Rx Instructions .ROUTE .MEDSUPPLY Qty: 8 12RF Rx Instructions: As directe- Energizer [id number]- Hearing aid Batteries Advair HFA 115-21 mcg/actuation HFA aerosol inhaler 2 puff inhalation BID Qty: 8 6RF bupropion HCl 150 mg tablet sustained-release 12 hr 150 mg PO BID Qty: 180 3RF albuterol sulfate 90 mcg/actuation HFA aerosol inhaler 2 puff inhalation BID PRN (Reason: shortness of breath or wheezing) Qty: 8.5 6RF montelukast 10 mg tablet 10 mg PO DAILY Qty: 90 3RF (DME) pen needle, diabetic [Microdot Insulin Pen Needle] 32 gauge x 5/32 needle See Rx Instructions .ROUTE .MEDSUPPLY Qty: 90 4RF Rx Instructions: For daily insulin injection-DM E11.9 (DME) lancets [OneTouch Delica Lancets] 33 gauge misc See Dose Instructions .ROUTE .MEDSUPPLY Qty: 300 4RF Dose Instruction: As directed Rx Instructions: 3x per day - glucose monitoring Dx E11.65 Tradjenta 5 mg tablet 5 mg PO DAILY Qty: 90 3RF gabapentin 100 mg capsule 200 mg PO HS Qty: 180 3RF lorazepam 0.5 mg tablet 0.25 mg PO HS MDD 0.25mg PRN (Reason: anxiety) Qty: 15 0RF lisinopril-hydrochlorothiazide 10-12.5 mg tablet 1 tab PO DAILY Qty: 90 3RF esomeprazole magnesium 40 mg capsule,delayed release(DR/EC) 40 mg PO BID Qty: 180 3RF glimepiride 2 mg tablet 2 mg PO QPM Qty: 90 0RF hydrocodone-acetaminophen 10-325 mg tablet 1 tab PO BID MDD 20mg PRN (Reason: backpain) Qty: 60 0RF lidocaine 5 % adhesive patch,medicated 1 patch TP DAILY Qty: 10 8RF Discharge Instructions Instructions: Fall Prevention for Older Adults (ED), Contusion in Adults (ED) Additional Instructions: X-rays of your ribs and chest are within normal limits no evidence of any acute fracture of ribs. I do suspect that you have bruised your chest wall. You may be sore for a couple of days. Follow up with primary care provider in 3-5 days. Return to ED sooner if any worsening pain, shortness of breath, productive cough, fever or concerns. Increase oral fluids. Please take Tylenol with food every 4-6 hours as needed for pain and swelling. Referrals: Zev Denton NP [Primary Care Provider] - 5 days Medical Decision Making 76-year-old female past medical history of anxiety, arthrosclerosis, hearing loss, diabetes mellitus, hypertension and GERD presents to the ER with chief complaint of left-sided rib pain status post a mechanical slip and fall on the ice this morning. She did take Tylenol after she fell. She denies any head or neck pain. She did not lose consciousness. Hip is and pelvis is stable. She has no ecchymosis noted. Lung sounds are clear to auscultation bilaterally. X-ray rib series ordered. I did offer pain medication or lidocaine patch which patient declined at this time. EKG ordered due to staff reporter saying the patient is complaining of some chest pain. EKG is within normal limits. Patient has no other signs or symptoms to suggest cardiac etiology denies any shortness of breath nausea lightheadedness. Discussed x-ray results with patient who verbalized understanding. She did request some Tylenol and lidocaine patch which was ordered. Patient was ambulatory without difficulty prior to discharge. Remained hemodynamically stable throughout stay. Discuss strict return instructions and follow-up care. This text was generated using [employer] dictation system, please disregard any oddities of phrase or misspellings. Medical Records Medical records reviewed: Yes I reviewed the patient's medical records. Imaging Data Radiologic Study: Imaging: X-Ray Radiologist's impression: CR XR CHEST 2V PA LATERAL 12/19/2021 12:58 PM FINDINGS: Bones/joints: No acute fracture. Pleural space: No pneumothorax or pleural fluid collection. Soft tissues: Normal. IMPRESSION: 1. No acute fracture. 2. No pneumothorax or pleural fluid collection. CR XR CHEST 2V PA LATERAL 12/19/2021 12:58 PM FINDINGS: Lungs: No alveolar infiltrate. Pleural spaces: No pleural fluid collection. No pneumothorax. Heart/Mediastinum: Normal heart size. Bones/joints: Spinal degenerative changes. IMPRESSION: No active pulmonary disease. Sign Out No HPI General Mode of arrival: ambulatory . Date/Time Provider Initiated Documentation: 02/10/22 13:54 . Limitations to Documentation: no limitations . Information obtained by: patient, RN notes reviewed and old records reviewed . HPI Narrative: 76-year-old female past medical history of anxiety, arthrosclerosis, hearing los s, diabetes mellitus, hypertension and GERD presents to the ER with chief complaint of left-sided rib pain status post a mechanical slip and fall on the ice this morning. She did take Tylenol after she fell. She denies any head or neck pain. She did not lose consciousness. Hip is and pelvis is stable. She has no ecchymosis noted. Lung sounds are clear to auscultation bilaterally. Related Data Home Medications Medication Instructions Recorded Confirmed multivitamin (Daily Multi-Vitamin 1 ea PO DAILY 06/12/12 02/10/22 tablet) omega-3 fatty acids-fish oil 684 1,000 mg PO HS 06/12/12 02/10/22 mg-1,200 mg capsule,delayed release (One-Per-Day [place]-3) cholecalciferol (vitamin D3) 50 2,000 unit PO DAILY 05/10/15 02/10/22 mcg (2,000 unit) tablet naloxone 4 mg/actuation nasal 4 mg NS PRN #2 sprays 12/24/16 02/10/22 spray (Narcan) acetaminophen 500 mg tablet 500 mg PO TID PRN 11/25/17 02/10/22 sertraline 50 mg tablet 25 mg PO DAILY #90 tabs 01/14/21 02/10/22 Hearing Aid Batteries (hearing aid #8 ea 06/05/21 02/10/22 accessory) albuterol sulfate 90 mcg/actuation 2 puff inhalation BID PRN 06/05/21 02/10/22 aerosol inhaler shortness of breath or wheezing #8.5 grams bupropion HCl 150 mg tablet,12 hr 150 mg PO BID #180 tabs 06/05/21 02/10/22 sustained-release fluticasone propionate 115 2 puff inhalation BID #8 grams 06/05/21 02/10/22 mcg-salmeterol 21 mcg/actuation HFA inhaler (Advair HFA) insulin glargine 100 unit/mL (3 10 - 30 unit (0.1 - 0.3 mL) subcut 06/05/21 02/10/22 mL) subcutaneous pen (Lantus DAILY DM E11.9 Daily Insulin Solostar U-100 Insulin) Injection 30 days #15 mL montelukast 10 mg tablet 10 mg PO DAILY #90 tabs 06/05/21 02/10/22 blood sugar diagnostic #300 ea 06/29/21 02/10/22 blood-glucose meter #1 ea 06/29/21 02/10/22 pen needle, diabetic 32 gauge x #90 ea 08/22/21 02/10/22 5/32 (Microdot Insulin Pen Needle) lancets 33 gauge (OneTouch Delica #300 ea 09/11/21 02/10/22 Lancets) gabapentin 100 mg capsule 200 mg PO HS #180 caps 12/14/21 02/10/22 linagliptin 5 mg tablet (Tradjenta) 5 mg PO DAILY #90 tabs 12/14/21 02/10/22 lorazepam 0.5 mg tablet 0.25 mg PO HS PRN anxiety #15 tabs 12/22/21 02/10/22 lisinopril 10 1 tab PO DAILY #90 tabs 12/29/21 02/10/22 mg-hydrochlorothiazide 12.5 mg tablet esomeprazole magnesium 40 mg 40 mg PO BID #180 caps 01/11/22 02/10/22 capsule,delayed release glimepiride 2 mg tablet 2 mg PO QPM #90 tabs 01/18/22 02/10/22 hydrocodone 10 mg-acetaminophen 1 tab PO BID PRN backpain #60 tabs 02/02/22 02/10/22 325 mg tablet lidocaine 5 % topical patch 1 patch topical DAILY low back 02/02/22 02/10/22 pain #10 ea Previous Rx's Medication Instructions Recorded naloxone 4 mg/actuation nasal 4 mg NS PRN #2 sprays 12/24/16 spray (Narcan) sertraline 50 mg tablet 25 mg PO DAILY #90 tabs 01/14/21 Hearing Aid Batteries (hearing aid #8 ea 06/05/21 accessory) albuterol sulfate 90 mcg/actuation 2 puff inhalation BID PRN 06/05/21 aerosol inhaler shortness of breath or wheezing #8.5 grams bupropion HCl 150 mg tablet,12 hr 150 mg PO BID #180 tabs 06/05/21 sustained-release fluticasone propionate 115 2 puff inhalation BID #8 grams 06/05/21 mcg-salmeterol 21 mcg/actuation HFA inhaler (Advair HFA) insulin glargine 100 unit/mL (3 10 - 30 unit (0.1 - 0.3 mL) subcut 06/05/21 mL) subcutaneous pen (Lantus DAILY DM E11.9 Daily Insulin Solostar U-100 Insulin) Injection 30 days #15 mL montelukast 10 mg tablet 10 mg PO DAILY #90 tabs 06/05/21 blood sugar diagnostic #300 ea 06/29/21 blood-glucose meter #1 ea 06/29/21 pen needle, diabetic 32 gauge x #90 ea 08/22/21 (Microdot Insulin Pen Needle) lancets 33 gauge (OneTouch Delica #300 ea 09/11/21 Lancets) gabapentin 100 mg capsule 200 mg PO HS #180 caps 12/14/21 linagliptin 5 mg tablet (Tradjenta) 5 mg PO DAILY #90 tabs 12/14/21 lorazepam 0.5 mg tablet 0.25 mg PO HS PRN anxiety #15 tabs 12/22/21 lisinopril 10 1 tab PO DAILY #90 tabs 12/29/21 mg-hydrochlorothiazide 12.5 mg tablet esomeprazole magnesium 40 mg 40 mg PO BID #180 caps 01/11/22 capsule,delayed release glimepiride 2 mg tablet 2 mg PO QPM #90 tabs 01/18/22 hydrocodone 10 mg-acetaminophen 1 tab PO BID PRN backpain #60 tabs 02/02/22 325 mg tablet lidocaine 5 % topical patch 1 patch topical DAILY low back 02/02/22 pain #10 ea Allergies Allergy/AdvReac Type Severity Reaction Status Date / Time adhesive Allergy Unknown Verified 02/10/22 17:31 ampicillin Allergy Unknown Verified 02/10/22 17:31 cyclobenzaprine Allergy Unknown Verified 02/10/22 17:31 erythromycin base Allergy Unknown Verified 02/10/22 17:31 Penicillins Allergy Unknown Verified 02/10/22 17:31 Sulfa (Sulfonamide Allergy Unknown Verified 02/10/22 17:31 Antibiotics) levofloxacin AdvReac Severe VOMITING,DI Verified 02/10/22 17:31 ARRHEA metformin AdvReac Intermediate DIARRHEA Verified 02/10/22 17:31 pregabalin AdvReac Mild FATIGUE Verified 02/10/22 17:31 epinephrine AdvReac Unknown Verified 02/10/22 17:31 rofecoxib AdvReac Unknown Verified 02/10/22 17:31 General Stated Complaint: Fall/Non TraumaCriteria PETER: 3 Review of Systems All systems reviewed & are unremarkable except as noted in HPI and below Musculoskeletal Musculoskeletal: Reports as per HPI and Reports back pain PFSH All Active Problems (Updated 02/10/22 @ 19:01 by Guadalupe Mittal NP) Fall (Acute) Chest wall contusion (Acute) Dyspnea (Acute) Anxiety (Chronic) Fatigue (Chronic) Cough variant asthma (Chronic) Per [facility] Pulmonology 03/04/20 Knee pain, left (Chronic) Thyroid lesion (Chronic) Atherosclerosis (Chronic) Sensorineural hearing loss of both ears (Chronic) Conductive hearing loss, external ear (Chronic) Sciatic nerve pain (Chronic) Right Diabetic foot with normal protective sensation, peripheral vasculature, and bone structure (Acute) History of poliomyelitis (Chronic) Diabetic retinopathy (Chronic ~01/08/18) 01/08/18; [place]; MILD B/L-kb 05/08/20: [place]; MILD B/L-kb Shoulder pain, bilateral (Chronic 02/14/07) right shoulder; MRI-DJD/rotator cuff Osteoarthritis (Chronic) Insomnia (Chronic) Gastroesophageal reflux disease with esophagitis (Chronic) h/o esophageal stricture (dilated at 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 No concerns for diversion. Medical History Advanced directives, counseling/discussion Chronic low back pain with left-sided sciatica (02/12/14) Post Polio Syndrome 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 Uses Lidocaine patches and Hydrocodone 10-325 up to TID PRN. She continues to walk for exercise. Also uses 200g Gabapentin QD. Family hx-breast malignancy mother Fibrocystic disease of breast left breast bx Grief Loss of spouse 05/2019 Hyperplastic polyps of stomach 03/30/15;[facility] Impacted cerumen of both ears Surgical History Abdominal hysterectomy Appendectomy Biopsy of breast Bladder Surgery DILATION ESOPHAGEAL; MULTIPLE TIMES DISC SURGERY Reduction mammoplasty (~2001) Family History Brother Essential hypertension Brother No problems noted. Mother Essential hypertension Personal history of malignant neoplasm colon and throat Father Heart disease Sister Diabetes Essential hypertension Sister Essential hypertension Sister No problems noted. Maternal Aunts Personal history of malignant neoplasm Breast Cancer Other Family hx-breast malignancy Social History Smoking/Tobacco Use Status: Never Second Hand Exposure: Yes Smoking risk assessment performed?: Yes Alcohol Intake: never Drug use: Never Substance use type: painkillers Details: perscribed hydocodone Caregiver/Support person: No Household members: none Communication Needs: Hard of Hearing Do you need help understanding health information?: Rarely current occupation: CAREGIVER Pets and animals: Yes Pets and animals: cat(s) and dog(s) Sexually active: No Do you think of yourself as: straight/heterosexual Current gender identity: female What is your relationship status?: How often do you get together with friends or relatives?: three or more times per week How often do you attend confucianism or anabaptist services?: 4 or more times per year Do you belong to any clubs or organized social groups?: no Panel score (0-1 are the most socially isolated patients): 2 What type of physical activity do you participate in: walking and yoga Duration: 30-45 minutes/day Frequency: daily [place]ena/Quaker: Mormonism Special helena needs: Yes Seatbelt use: always Drive intox or ride w/intox 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 Skin: Warm and Dry HEENT: Head: No palpable deformities, Normocephalic Eyes: Pupils PERRLA, EOM's intact. No periorbital eccymosis or step off Ears: Canal patent. Tympanic membranes are clear . No watson's sign, no hemptympanum. Nose/Face: Atraumatic. Facial bones nontender to palpation and stable with manipulation. Mouth/Throat: No intraoral trauma. Teeth and mandible are intact. Neck: No midline tenderness, no step off, no deformity to palpation of C-spine. Trachea midline. Chest: No surface trauma. Tenderness to the left rib and posterior ribs.. Lungs clear to ausculatation bilaterally. Heart: RRR, no rubs, murmurs or gallop. Abdomen: No abrasions, ecchymosis, or surface trauma. Nondistended. Nontender to palpation no guarding, rebound, or rigidity. Pelvis: Nontender to palpation and stable to compression. Femoral pulses strong and equal Extremities: no surface trauma. Sensation intact. Peripheral pulses intact and equal. Neuro: ANO x4, GCS 15, cranial nerves II through XII intact. Motor and sensory exam nonfocal. Reflexes are symmetric. Course Vital Signs Vital signs: Vital Signs Temperature 36.9 C 02/10/22 13:32 Pulse 87 02/10/22 13:32 Respiratory Rate 20 02/10/22 13:32 Blood Pressure 142/78 H 02/10/22 13:32 Pulse Oximetry 97 02/10/22 13:32 Temperature 37.2 C 02/10/22 14:42 Temperature Source Tympanic 02/10/22 14:42 Pulse 86 02/10/22 14:42 Respiratory Rate 20 02/10/22 13:32 Respiratory Effort Non-Labored 02/10/22 17:24 Blood Pressure 157/90 H 02/10/22 14:42 Blood Pressure Position Sitting 02/10/22 13:32 Pulse Oximetry 94 02/10/22 14:42 Oxygen Delivery Method Room Air 02/10/22 14:42 Oxygen Flow Rate 0 02/10/22 14:42 Pain Level 9 02/10/22 14:42
--- NOTE | 2022-02-10 18:53 | DI.VRAD_ITS ---
PROCEDURE INFORMATION: Exam: XR Left Ribs Exam date and time: 02/10/2022 6:16 PM Age: 76 years old Clinical indication: Injury; Fall; Left side rib pain; Blunt trauma TECHNIQUE: Imaging protocol: Radiologic exam of the Left ribs. Views: 2 views. COMPARISON: CR XR CHEST 2V PA LATERAL 12/19/2021 12:58 PM FINDINGS: Bones/joints: No acute fracture. Pleural space: No pneumothorax or pleural fluid collection. Soft tissues: Normal. IMPRESSION: 1. No acute fracture. 2. No pneumothorax or pleural fluid collection. PROCEDURE INFORMATION: Exam: XR Chest Exam date and time: 02/10/2022 6:16 PM Age: 76 years old Clinical indication: Injury; Fall; Left side rib pain; Blunt trauma TECHNIQUE: Imaging protocol: Radiologic exam of the chest. Views: 2 views. COMPARISON: CR XR CHEST 2V PA LATERAL 12/19/2021 12:58 PM FINDINGS: Lungs: No alveolar infiltrate. Pleural spaces: No pleural fluid collection. No pneumothorax. Heart/Mediastinum: Normal heart size. Bones/joints: Spinal degenerative changes. IMPRESSION: No active pulmonary disease. Dictated and Authenticated by: Darren Mahan MD. Ordering:EDMAR Butcher MD
[2022-02-10] MEDS: Lidocaine 5% Patch 1 PATCH TP (19:21)
[2022-02-10] MEDS: Acetaminophen 500 MG TAB PO (19:21)
== END 2022-02-10 19:39 | disposition home or self-care (01) ==
PROVIDERS: Emergency Provider Registered Nurse Emergency; PCP Nurse Practitioner Family
DX: S20.212A Contusion of left front wall of thorax, initial encounter (principal); E11.319 Type 2 diabetes mellitus with unspecified diabetic retinopathy without macular edema; I10 Essential (primary) hypertension; Z79.4 Long term (current) use of insulin; Z79.84 Long term (current) use of oral hypoglycemic drugs; W19.XXXA Unspecified fall, initial encounter
CPT/HCPCS: 36416; 82962; 93005; 99284; 71046; 71100; 93010

== ENCOUNTER 2022-05-01 02:14 | Outpatient (CLI) | payer MEDICARE, MEDICAID, SELFPAY ==
[2022-05-01 12:17] LABS: ALT 21 U/L (14-59); AST 18 U/L (15-37); Albumin 3.8 g/dL (3.4-5.0); Alkaline Phosphatase 105 U/L (46-116); BUN 13 mg/dL (7-18); Bilirubin, Total 0.3 mg/dL (0.2-1.0); CREATININE 0.8 mg/dL (0.55-1.02); Calcium 9.6 mg/dL (8.5-10.1); Chloride 98 mmol/L (98-107); Estimated GFR 75.37 (mL/min/1.73m2); Glucose 177 mg/dL (74-106); Hemoglobin A1C 6.6 % (<5.7); Potassium 4.4 mmol/L (3.5-5.1); Sodium 136 mmol/L (136-145); Total Protein 7.7 g/dL (6.4-8.2)
== END 2022-05-01 02:15 | disposition home or self-care (01) ==
LOC: LBO 02:14
PROVIDERS: PCP Nurse Practitioner Family; Visit Provider Nurse Practitioner Family
DX: E11.65 Type 2 diabetes mellitus with hyperglycemia; I10 Essential (primary) hypertension
CPT/HCPCS: 36415; 80053; 83036

== ENCOUNTER 2022-05-22 16:42 | Outpatient (CLI) | payer MEDICARE, MEDICAID, SELFPAY ==
--- NOTE | 2022-05-22 12:30 | DI.CT_ITS ---
Exam(s) CT ABDOMEN PELVIS W EXAM: CT ABDOMEN PELVIS W CLINICAL HISTORY: increasing llq pain for 6 weeks,r10.32. TECHNIQUE: Imaging Protocol: Axial computed tomography images with coronal and sagittal reformatted images were created and reviewed CONTRAST MATERIAL: Intravenous: Omnipaque-350 100cc Oral: Yes. COMPARISON: CT CT CHEST PE CTA from 10/29/2019 FINDINGS: Some images degraded by motion artifact. VISUALIZED LUNG BASES: No nodules nor pleural effusions evident. ABDOMEN: There is no ascites. LIVER: There are no focal hepatic lesions evident. No dilated intrahepatic ducts. GALLBLADDER/BILIARY: Call under somewhat blurred by respiratory motion artifact. No obvious calcifie d gallstones. CBD is not obviously dilated. PANCREAS: No evidence of pancreatic mass nor dilatation of the pancreatic duct. SPLEEN: Spleen is not enlarged. No obvious intrasplenic lesions. Splenic and portal veins are paten t. ADRENALS: Right adrenal gland unremarkable. There is a small nodule at the level of the genu of the left adrenal gland which measures 1.2 x 1.1 cm. Unchanged from October 2019. KIDNEYS:No cysts evident. No solid renal masses. No calculi nor hydronephrosis.. ABDOMINAL AORTA: Abdominal aorta is not enlarged. LYMPH NODES:There is no retroperitoneal nor paraaortic adenopathy. ABDOMINAL WALL: There is anterior abdominal wall midline hernia above the level of the umbilicus. Th is contains fat and what appears to be a mesenteric vessel. There does not appear to be fluid in thi s small hernia sac. GI: There is no evidence of bowel obstruction, free air, nor abscess. PELVIS: GI: No evidence of appendicitis.No evidence of sigmoid diverticulitis. LYMPH NODES: There is no intrapelvic nor inguinal adenopathy. REPRODUCTIVE: Uterus is surgically absent. There are no abnormal adnexal masses. No free fluid in t he pelvis. URINARY BLADDER: No calculi nor obvious masses evident OSSEOUS: No fractures and no significant osseous lesions. Chronic degenerative disc disease L2-3 and L3-4 levels. Mild retrolisthesis L2 upon L3. Mild degene rative anterolisthesis L5 upon S1. IMPRESSION: 1. There is anterior abdominal wall midline hernia above the level of the umbilicus. This does not c ontain bowel loops but does contain a mesenteric vessel, possibly significant. There is no fluid in this hernia sac. No bowel obstruction, no free air. No abscess. 2. Uterus is surgically absent. No abnormal adnexal masses. No free fluid in the pelvis. RADIATION DOSE DELIVERED: Total DLP DATA REPOSITORY: All CT scans at this facility are submitted to the National Radiology Data Registry (NRDR) Dose Index Registry (DIR) with the [employer] (ACR). RADIATION OPTIMIZATION: All CT scans at this facility use at least one of these dose optimization te chniques: automated exposure control; mA and/or kV adjustment per patient size (includes targeted exa ms where dose is matched to clinical indication); or iterative reconstruction.
[2022-05-22] MEDS: Barium Sulfate 2% W/V-Berry Smoothie 450 ML BTL PO (14:49)
[2022-05-22] MEDS: Omnipaque 350 MG/ML 500 ML BTL-Imaging package 100 ML IJ (14:50)
== END 2022-05-22 17:02 ==
PROVIDERS: PCP Nurse Practitioner Family; Visit Provider Nurse Practitioner Family
DX: R10.32 Left lower quadrant pain (principal); K43.9 Ventral hernia without obstruction or gangrene; Z90.710 Acquired absence of both cervix and uterus
CPT/HCPCS: 74177

== ENCOUNTER 2022-05-23 12:37 | Emergency (ER) | payer MEDICARE, MEDICAID, SELFPAY ==
[2022-05-23 12:39] VITALS: PULSE 88; RESP 18; TEMP 36.4; O2SAT 97
[2022-05-23 12:43] VITALS: BP 158/74
[2022-05-23] MEDS: Acetaminophen 325 MG TAB 650 MG PO (14:38)
[2022-05-23 14:46] LABS: Abs Immature Grans 0.02 10^3/uL (0.0-0.06); Absolute Basophil Count 0.06 10^3/uL (0.0-0.2); Absolute Eosinophil Count 0.27 10^3/uL (0.0-0.7); Absolute Lymphocyte Count 1.78 10^3/uL (1.2-3.4); Absolute Monocyte Count 0.79 10^3/uL (0.1-0.8); Absolute Neutrophil Count 5.47 10^3/uL (1.2-6.7); Basophils % 0.7; Eosinophils % 3.2; HCT 40.3 % (36.0-46.0); HGB 13.7 g/dL (11.2-15.7); Immature Grans % 0.2; Lymphocytes % 21.2; MCH 30.3 pg (27.0-33.0); MCV 89 fL (80-95); MPV 10.9 fL (8.0-11.0); Monocytes % 9.4; Neutrophils % 65.3; Platelet Count 219 10^3/uL (130-400); RBC 4.52 10^6/uL (3.93-5.22); RDW 12.4 % (11.7-14.6); RDW-SD 40.4 fL; WBC 8.39 10^3/uL (4.4-10.8)
[2022-05-23 14:59] LABS: ALT 25 U/L (14-59); AST 15 U/L (15-37); Albumin 3.7 g/dL (3.4-5.0); Alkaline Phosphatase 89 U/L (46-116); Anion Gap 4.5 mmol/L (3-11); BUN 10 mg/dL (7-18); Bilirubin, Total 0.2 mg/dL (0.2-1.0); CO2 33.5 mmol/L (21.0-32.0); CREATININE 0.8 mg/dL (0.55-1.02); Calcium 9.6 mg/dL (8.5-10.1); Chloride 98 mmol/L (98-107); Glucose 114 mg/dL (74-106); Lipase 34 U/L (16-77); Potassium 4.1 mmol/L (3.5-5.1); Sodium 136 mmol/L (136-145); Total Protein 7.4 g/dL (6.4-8.2)
--- NOTE | 2022-05-23 15:29 | ED.GENADUL_ITS ---
Discharge Plan Disposition Patient Disposition: Home Discharge Details Clinical Impression: Hernia, umbilical Primary Care Provider: Zev Denton ED Provider: Luann Garcia Home Meds and New Rx's Prescriptions: Continued (DME) blood-glucose meter Kit See Rx Instructions .ROUTE .MEDSUPPLY Qty: 1 0RF Rx Instructions: TID glucose monitoring - E11.9 albuterol sulfate 90 mcg/actuation HFA aerosol inhaler 2 puff inhalation BID PRN (Reason: shortness of breath or wheezing) Qty: 8.5 6RF (DME) blood sugar diagnostic Strip See Dose Instructions .ROUTE .MEDSUPPLY Qty: 300 6RF Dose Instruction: As directed Rx Instructions: Check blood sugar tid: Dx E11.9 bupropion HCl 150 mg tablet sustained-release 12 hr 150 mg PO BID Qty: 180 3RF esomeprazole magnesium 40 mg capsule,delayed release(DR/EC) 40 mg PO BID Qty: 180 3RF Advair HFA 115-21 mcg/actuation HFA aerosol inhaler 2 puff inhalation BID Qty: 8 6RF gabapentin 100 mg capsule 200 mg PO HS Qty: 180 3RF glimepiride 2 mg tablet 2 mg PO QPM Qty: 90 3RF insulin glargine [Lantus Solostar U-100 Insulin] 100 unit/mL (3 mL) insulin pen 30 - 40 unit SC DAILY 30 Days Qty: 15 2RF (DME) lancets [OneTouch Delica Lancets] 33 gauge misc See Dose Instructions .ROUTE .MEDSUPPLY Qty: 300 4RF Dose Instruction: As directed Rx Instructions: 3x per day - glucose monitoring Dx E11.65 lidocaine 5 % adhesive patch,medicated 1 patch TP DAILY Qty: 10 8RF Tradjenta 5 mg tablet 5 mg PO DAILY Qty: 90 3RF lisinopril-hydrochlorothiazide 10-12.5 mg tablet 1 tab PO DAILY Qty: 90 3RF montelukast 10 mg tablet 10 mg PO DAILY Qty: 90 3RF sertraline 50 mg tablet 25 mg PO DAILY Qty: 45 3RF hydrocodone-acetaminophen 10-325 mg tablet 1 tab PO BID MDD 20mg PRN (Reason: backpain) Qty: 60 0RF multivitamin [Daily Multi-Vitamin] 1 EACH tablet 1 ea PO DAILY One-Per-Day Fowler-3 1 EACH capsule,delayed release(DR/EC) 1,000 mg PO HS narcotic contract 0RF Rx Instructions: narcotic contract cholecalciferol (vitamin D3) 2,000 UNIT tablet 2,000 unit PO DAILY naloxone [Narcan] 4 MG spray,non-aerosol 4 mg NS PRN Qty: 2 0RF acetaminophen 500 mg tablet 500 mg PO TID PRN (DME) Hearing Aid Batteries Misc See Rx Instructions .ROUTE .MEDSUPPLY Qty: 8 12RF Rx Instructions: As directe- Energizer [id number]- Hearing aid Batteries lorazepam 0.5 mg tablet 0.25 mg PO HS MDD 0.25mg PRN (Reason: anxiety) Qty: 15 0RF (DME) pen needle, diabetic [Microdot Insulin Pen Needle] 32 gauge x 5/32 needle See Rx Instructions .ROUTE .MEDSUPPLY Qty: 90 4RF Rx Instructions: For daily insulin injection-DM E11.9 Discharge Instructions Additional Instructions: Please follow-up with the surgeon at your scheduled appointment tomorrow Discussed possible colonoscopy at the discretion of the surgeon of course You may also discuss whether or not a laxative may help with your possible constipation Take Tylenol as needed for discomfort Return immediately should you have traumatic change in your pain, uncontrolled nausea or vomiting, or with any new or worsening complaints Referrals: Zev Denton NP [Primary Care Provider] - Discharge Data Discharge Date/Time-TO BE ENTERED AT DEPARTURE: 05/23/22 15:53 Medical Decision Making This 77-year-old female presents with abdominal pain for the past 6 or [address] yesterday that shows umbilical hernia with mesenteric vessel involvement No evidence of bowel or incarceration on CT scan per my review and radiology interpretation Case was discussed with Dr. Caro, on-call surgeon and he feels as though the mesenteric vessel has good flow and does not see clear evidence of ischemia Patient has had persistent but not significantly worsening pain At this time is unclear if the pain is related to patient's hernia she does not appear to be tender over this direct area versus other etiology and she has an appointment scheduled with surgery tomorrow, she will keep that appointment and to be reassessed Her labs are reassuring She was comfortable discharge home at this time Return precautions reviewed and patient expressed understanding she discharged home in stable condition with stable vitals Medical Records Medical records reviewed: Yes I reviewed the patient's medical records. Lab Data Lab results reviewed: Yes I reviewed the patient's lab results. HPI General Date/Time Provider Initiated Documentation: 05/23/22 12:37 . HPI Narrative: This 77-year-old female presents with report of abdominal pain for the past 6 to 7 weeks. She states that she was evaluated and had a CT scan yesterday and was told to come to the emergency department for blood work and surgical assessment of a reported hernia with vessel involvement in her abdomen. Patient denies significant change in her pain. She denies any nausea or vomiting. She denies any fever or chills. Denies any urinary complaints. Patient Related Data Home Medications Medication Instructions Recorded Confirmed multivitamin (Daily Multi-Vitamin 1 ea PO DAILY 06/12/12 05/22/22 tablet) omega-3 fatty acids-fish oil 684 1,000 mg PO HS 06/12/12 05/22/22 mg-1,200 mg capsule,delayed release (One-Per-Day Fowler-3) cholecalciferol (vitamin D3) 50 2,000 unit PO DAILY 05/10/15 05/22/22 mcg (2,000 unit) tablet naloxone 4 mg/actuation nasal 4 mg NS PRN #2 sprays 12/24/16 05/22/22 spray (Narcan) acetaminophen 500 mg tablet 500 mg PO TID PRN 11/25/17 05/22/22 Hearing Aid Batteries (hearing aid #8 ea 06/05/21 05/22/22 accessory) blood-glucose meter #1 ea 06/29/21 05/22/22 lorazepam 0.5 mg tablet 0.25 mg PO HS PRN anxiety #15 tabs 12/22/21 05/22/22 pen needle, diabetic 32 gauge x #90 ea 03/23/22 05/22/22 5/32 (Microdot Insulin Pen Needle) albuterol sulfate 90 mcg/actuation 2 puff inhalation BID PRN 05/22/22 05/22/22 aerosol inhaler shortness of breath or wheezing #8.5 grams blood sugar diagnostic #300 ea 05/22/22 05/22/22 bupropion HCl 150 mg tablet,12 hr 150 mg PO BID #180 tabs 05/22/22 05/22/22 sustained-release esomeprazole magnesium 40 mg 40 mg PO BID #180 caps 05/22/22 05/22/22 capsule,delayed release fluticasone propionate 115 2 puff inhalation BID #8 grams 05/22/22 05/22/22 mcg-salmeterol 21 mcg/actuation HFA inhaler (Advair HFA) gabapentin 100 mg capsule 200 mg PO HS #180 caps 05/22/22 05/22/22 glimepiride 2 mg tablet 2 mg PO QPM #90 tabs 05/22/22 05/22/22 hydrocodone 10 mg-acetaminophen 1 tab PO BID PRN backpain #60 tabs 05/22/22 05/22/22 325 mg tablet insulin glargine 100 unit/mL (3 30 - 40 unit (0.3 - 0.4 mL) subcut 05/22/22 05/22/22 mL) subcutaneous pen (Lantus DAILY DM E11.9 Daily Insulin Solostar U-100 Insulin) Injection 30 days #15 mL lancets 33 [facility]a 05/22/22 05/22/22 Lancets) lidocaine 5 % topical patch 1 patch topical DAILY low back 05/22/22 05/22/22 pain #10 ea linagliptin 5 mg tablet (Tradjenta) 5 mg PO DAILY #90 tabs 05/22/22 05/22/22 lisinopril 10 1 tab PO DAILY #90 tabs 05/22/22 05/22/22 mg-hydrochlorothiazide 12.5 mg tablet montelukast 10 mg tablet 10 mg PO DAILY #90 tabs 05/22/22 05/22/22 sertraline 50 mg tablet 25 mg PO DAILY #45 tabs 05/22/22 05/22/22 Previous Rx's Medication Instructions Recorded naloxone 4 mg/actuation nasal 4 mg NS PRN #2 sprays 12/24/16 spray (Narcan) Hearing Aid Batteries (hearing aid #8 ea 06/05/21 accessory) blood-glucose meter #1 ea 06/29/21 lorazepam 0.5 mg tablet 0.25 mg PO HS PRN anxiety #15 tabs 12/22/21 pen needle, diabetic 32 gauge x #90 ea 03/23/22 (Microdot Insulin Pen Needle) albuterol sulfate 90 mcg/actuation 2 puff inhalation BID PRN 05/22/22 aerosol inhaler shortness of breath or wheezing #8.5 grams blood sugar diagnostic #300 ea 05/22/22 bupropion HCl 150 mg tablet,12 hr 150 mg PO BID #180 tabs 05/22/22 sustained-release esomeprazole magnesium 40 mg 40 mg PO BID #180 caps 05/22/22 capsule,delayed release fluticasone propionate 115 2 puff inhalation BID #8 grams 05/22/22 mcg-salmeterol 21 mcg/actuation HFA inhaler (Advair HFA) gabapentin 100 mg capsule 200 mg PO HS #180 caps 05/22/22 glimepiride 2 mg tablet 2 mg PO QPM #90 tabs 05/22/22 hydrocodone 10 mg-acetaminophen 1 tab PO BID PRN backpain #60 tabs 05/22/22 325 mg tablet insulin glargine 100 unit/mL (3 30 - 40 unit (0.3 - 0.4 mL) subcut 05/22/22 mL) subcutaneous pen (Lantus DAILY DM E11.9 Daily Insulin Solostar U-100 Insulin) Injection 30 days #15 mL lancets 33 gauge (OneTouch Delica #300 ea 05/22/22 Lancets) lidocaine 5 % topical patch 1 patch topical DAILY low back 05/22/22 pain #10 ea linagliptin 5 mg tablet (Tradjenta) 5 mg PO DAILY #90 tabs 05/22/22 lisinopril 10 1 tab PO DAILY #90 tabs 05/22/22 mg-hydrochlorothiazide 12.5 mg tablet montelukast 10 mg tablet 10 mg PO DAILY #90 tabs 05/22/22 sertraline 50 mg tablet 25 mg PO DAILY #45 tabs 05/22/22 Allergies Allergy/AdvReac Type Severity Reaction Status Date / Time adhesive Allergy Unknown Verified 05/22/22 11:13 ampicillin Allergy Unknown Verified 05/22/22 11:13 cyclobenzaprine Allergy Unknown Verified 05/22/22 11:13 erythromycin base Allergy Unknown Verified 05/22/22 11:13 Penicillins Allergy Unknown Verified 05/22/22 11:13 Sulfa (Sulfonamide Allergy Unknown Verified 05/22/22 11:13 Antibiotics) levofloxacin AdvReac Severe VOMITING,DI Verified 05/22/22 11:13 ARRHEA metformin AdvReac Intermediate DIARRHEA Verified 05/22/22 11:13 pregabalin AdvReac Mild FATIGUE Verified 05/22/22 11:13 epinephrine AdvReac Unknown Verified 05/22/22 11:13 rofecoxib AdvReac Unknown Verified 05/22/22 11:13 General Stated Complaint: GenMedical PETER: 3 PFSH All Active Problems (Updated 05/23/22 @ 15:40 by SADAF Bergman) Chronic pain (Chronic) 08/26/13 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 No concerns for diversion. Depressive disorder (Chronic) Diabetes mellitus (Chronic 06/13/12) Essential hypertension (Chronic 01/19/13) Gastroesophageal reflux disease with esophagitis (Chronic) h/o esophageal stricture (dilated at [facility] Insomnia (Chronic) Osteoarthritis (Chronic) Shoulder pain, bilateral (Chronic 02/14/07) right shoulder; MRI-DJD/rotator cuff Diabetic retinopathy (Chronic ~01/08/18) 01/08/18; GEGEE; MILD B/L-kb 05/08/20: ANDRIY; MILD B/L-kb History of poliomyelitis (Chronic) Diabetic foot with normal protective sensation, peripheral vasculature, and bone structure (Acute) Sciatic nerve pain (Chronic) Right Conductive hearing loss, external ear (Chronic) Sensorineural hearing loss of both ears (Chronic) Thyroid lesion (Chronic) Atherosclerosis (Chronic) Knee pain, left (Chronic) Cough variant asthma (Chronic) Per [facility] Pulmonology 03/04/20 Fatigue (Chronic) Anxiety (Chronic) Dyspnea (Acute) Left lower quadrant abdominal pain (Acute) Hernia of anterior abdominal wall (Acute) containing fat and mesenteric vessel Hernia, umbilical (Acute) Medical History Advanced directives, counseling/discussion Chronic low back pain with left-sided sciatica (02/12/14) Post Polio Syndrome [facility] [place] 05/03 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 Uses Lidocaine patches and Hydrocodone 10-325 up to TID PRN. She continues to walk for exercise. Also uses 200g Gabapentin QD. Family hx-breast malignancy mother Fibrocystic disease of breast left breast bx Grief Loss of spouse 05/2019 Hyperplastic polyps of stomach 03/30/15;[facility] Impacted cerumen of both ears Surgical History Abdominal hysterectomy Appendectomy Biopsy of breast Bladder Surgery DILATION ESOPHAGEAL; MULTIPLE TIMES DISC SURGERY Reduction mammoplasty (~2001) Family History Brother Essential hypertension Brother No problems noted. Mother Essential hypertension Personal history of malignant neoplasm colon and throat Father Heart disease Sister Diabetes Essential hypertension Sister Essential hypertension Sister No problems noted. Maternal Aunts Personal history of malignant neoplasm Breast Cancer Other Family hx-breast malignancy Social History (Updated 05/22/22 @ 15:30 by Dalia Moeller) Smoking/Tobacco Use Status: Never Second Hand Exposure: Yes Smoking risk assessment performed?: Yes Alcohol Intake: never Drug use: Never Substance use type: painkillers Details: perscribed hydocodone Caregiver/Support person: No Household members: none Housing: other Details: Mobile Home Communication Needs: Hard of Hearing Do you need help understanding health information?: Never current occupation: CAREGIVER Pets and animals: Yes Pets and animals: cat(s) and dog(s) Sexually active: No Do you think of yourself as: straight/heterosexual Current gender identity: female What is your relationship status?: How often do you talk on the phone with friends or family?: three or more times per week How often do you get together with friends or relatives?: three or more times per week How often do you attend zoroastrianism or advent services?: 4 or more times per year Do you belong to any clubs or organized social groups?: no Panel score (0-1 are the most socially isolated patients): 2 What type of physical activity do you participate in: walking Duration: 30-45 minutes/day Frequency: daily Helena/Lutheran: Bahai Special helena needs: Yes Seatbelt use: always Helmet use: No Drive intox or ride 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 Do you feel safe at home: Yes Do you feel safe in your relationship?: Yes History History 5 Para 3 Hx # Term Pregnancies 3 Multiple births Hx # Pregnancies Ectopic pregnancies AB induced Hx Number of Living Children 3 AB spontaneous 2 Exam Const General: cooperative, comfortable and no acute distress Eyes Sclera: sclerae normal Resp Effort & Inspection: normal respiratory effort Auscultation: clear to auscultation bilaterally Cardio Rate: regular rate Rhythm: regular rhythm GI Inspection: normal to inspection Other: Tenderness left upper quadrant, no rebound or guarding Skin General skin exam: no rashes or lesions noted Neuro General: patient alert and patient oriented x3 Course Vital Signs Vital signs: Vital Signs Temperature 36.4 C 05/23/22 12:39 Pulse 88 05/23/22 12:39 Respiratory Rate 18 05/23/22 12:39 Pulse Oximetry 97 05/23/22 12:39 Temperature 36.4 C 05/23/22 12:39 Temperature Source Tympanic 05/23/22 12:39 Pulse 88 05/23/22 12:39 Respiratory Rate 18 05/23/22 12:39 Respiratory Effort Normal 05/23/22 12:43 Blood Pressure 158/74 H 05/23/22 12:43 Pulse Oximetry 97 05/23/22 12:39 Oxygen Delivery Method Room Air 05/23/22 12:39 Oxygen Flow Rate 0 05/23/22 12:39 Pain Level 8 05/23/22 12:39 Lab/Test Results Lab/Test Results: Laboratory Tests Range/Units 05/23/22 05/23/22 14:35 14:35 WBC (4.4-10.8) 10^3/uL 8.39 RBC (3.93-5.22) 10^6/uL 4.52 Hgb (11.2-15.7) g/dL 13.7 Hct (36.0-46.0) % 40.3 MCV (80-95) fL 89 MCH (27.0-33.0) pg 30.3 MCHC (32.0-36.0) % 34.0 RDW (11.7-14.6) % 12.4 Plt Count (130-400) 10^3/uL 219 MPV (8.0-11.0) fL 10.9 Immature Gran % 0.2 Neutrophils % 65.3 Lymphocytes % 21.2 Monocytes % 9.4 Eosinophils % 3.2 Basophils % 0.7 Nucleated RBC % (0.0-0.3) % 0.0 Absolute Neutrophils (1.2-6.7) 10^3/uL 5.47 Absolute Lymphocytes (1.2-3.4) 10^3/uL 1.78 Absolute Monocytes (0.1-0.8) 10^3/uL 0.79 Absolute Eosinophils (0.0-0.7) 10^3/uL 0.27 Absolute Basophils (0.0-0.2) 10^3/uL 0.06 Sodium (136-145) mmol/L 136 Potassium (3.5-5.1) mmol/L 4.1 Chloride (98-107) mmol/L 98 Carbon Dioxide (21.0-32.0) mmol/L 33.5 H Anion Gap (3-11) mmol/L 4.5 BUN (7-18) mg/dL 10 Creatinine (0.55-1.02) mg/dL 0.8 Est GFR (CKD-EPI 2020) (mL/min/1.73m2) 74.90 Glucose (74-106) mg/dL 114 H Calcium (8.5-10.1) mg/dL 9.6 Total Bilirubin (0.2-1.0) mg/dL 0.2 AST (15-37) U/L 15 ALT (14-59) U/L 25 Alkaline Phosphatase (46-116) U/L 89 Total Protein (6.4-8.2) g/dL 7.4 Albumin (3.4-5.0) g/dL 3.7 Lipase (16-77) U/L 34
[2022-05-23 15:59] LABS: Bilirubin Negative (Negative); Blood Negative (Negative); Clarity Clear (Clear); Glucose Negative (Negative); Ketones Negative (Negative); Leukocyte Esterase Trace (Negative); Nitrite Negative (Negative); Urobilinogen 0.2 mg/dL (Up to 0.2)
[2022-05-23 16:21] LABS: Bacteria Rare HPF (Negative); C & S Indicated? Yes; Crystals Negative HPF (Negative); Epithelial Cells Few HPF (Negative); Mucus Trace (Negative); RBC 0-2 HPF (0-2)
== END 2022-05-23 15:53 | disposition home or self-care (01) ==
PROVIDERS: Emergency Provider Physician Assistant; PCP Nurse Practitioner Family
DX: K42.9 Umbilical hernia without obstruction or gangrene (principal)
CPT/HCPCS: 36415; 80053; 83690; 99283; 81003; 81015; 85025; 87086; 99282

== ENCOUNTER → 2022-05-24 12:54 | Outpatient (BNVA) | payer MEDICARE, MEDICAID, SELFPAY | PROVIDERS: PCP Nurse Practitioner Family; Referring Provider Nurse Practitioner Family; Visit Provider Surgery | DX: K43.2 Incisional hernia without obstruction or gangrene (principal); R15.9 Full incontinence of feces; K57.30 Diverticulosis of large intestine without perforation or abscess without bleeding; R10.32 Left lower quadrant pain | CPT/HCPCS: 99214; 99243 ==

== ENCOUNTER 2022-06-25 08:14 | Day surgery (SDC) | payer MEDICARE, MEDICAID, SELFPAY ==
[2022-06-25 08:30] VITALS: BP 150/96; PULSE 80; RESP 18; TEMP 36.6; O2SAT 95
[2022-06-25] MEDS: Tropicam./Phenyleph. (1/2.5%) 5 ML BTL OS ×3 (08:39→09:02)
--- NOTE | 2022-06-25 08:49 | W.ANESPRE ---
General Info Date of Service Date Performed: 06/25/22 Height: 5 ft 3 in Weight: 63.5 kg Body Mass Index (BMI): 24.7 Surgical Procedure: Operation Date: 06/25/22 10:40 Proposed Procedure Side Surgeon p Cataract Extraction with IOL Implant Left Sammy Garza MD Meds Allergies and Home Medications Allergies Allergy/AdvReac Type Severity Reaction Status Date / Time lidocaine Allergy Severe I pass Verified 06/25/22 08:45 out adhesive Allergy Intermediate Rash Verified 06/25/22 08:45 ampicillin Allergy Unknown Verified 06/25/22 08:45 cyclobenzaprine Allergy Unknown Verified 06/25/22 08:45 erythromycin base Allergy Unknown Verified 06/25/22 08:45 Penicillins Allergy Unknown Verified 06/25/22 08:45 Sulfa (Sulfonamide Allergy Unknown Verified 06/25/22 08:45 Antibiotics) levofloxacin AdvReac Severe VOMITING,DI Verified 06/25/22 08:45 ARRHEA metformin AdvReac Intermediate DIARRHEA Verified 06/25/22 08:45 pregabalin AdvReac Mild FATIGUE Verified 06/25/22 08:45 epinephrine AdvReac Unknown Verified 06/25/22 08:45 rofecoxib AdvReac Unknown Verified 06/25/22 08:45 Home Medication Medication Instructions Recorded multivitamin (Daily Multi-Vitamin 1 ea PO DAILY 06/12/12 tablet) omega-3 fatty acids-fish oil 684 1,000 mg PO HS 06/12/12 mg-1,200 mg capsule,delayed release (One-Per-Day [place]-3) cholecalciferol (vitamin D3) 50 2,000 unit PO DAILY 05/10/15 mcg (2,000 unit) tablet naloxone 4 mg/actuation nasal 4 mg NS PRN #2 sprays 12/24/16 spray (Narcan) acetaminophen 500 mg tablet 500 mg PO TID PRN 11/25/17 Hearing Aid Batteries (hearing aid #8 ea 06/05/21 accessory) blood-glucose meter #1 ea 06/29/21 pen needle, diabetic 32 gauge x #90 ea 03/23/22 (Microdot Insulin Pen Needle) albuterol sulfate 90 mcg/actuation 2 puff inhalation BID PRN 05/22/22 aerosol inhaler shortness of breath or wheezing #8.5 grams blood sugar diagnostic #300 ea 05/22/22 bupropion HCl 150 mg tablet,12 hr 150 mg PO BID #180 tabs 05/22/22 sustained-release esomeprazole magnesium 40 mg 40 mg PO BID #180 caps 05/22/22 capsule,delayed release fluticasone propionate 115 2 puff inhalation BID #8 grams 05/22/22 mcg-salmeterol 21 mcg/actuation HFA inhaler (Advair HFA) gabapentin 100 mg capsule 200 mg PO HS #180 caps 05/22/22 glimepiride 2 mg tablet 2 mg PO QPM #90 tabs 05/22/22 hydrocodone 10 mg-acetaminophen 1 tab PO BID PRN backpain #60 tabs 05/22/22 325 mg tablet insulin glargine 100 unit/mL (3 30 - 40 unit (0.3 - 0.4 mL) subcut 05/22/22 mL) subcutaneous pen (Lantus DAILY DM E11.9 Daily Insulin Solostar U-100 Insulin) Injection 30 days #15 mL lancets 33 gauge ([facility] #300 ea 05/22/22 Lancets) lidocaine 5 % topical patch 1 patch topical DAILY low back 05/22/22 pain #10 ea linagliptin 5 mg tablet (Tradjenta) 5 mg PO DAILY #90 tabs 05/22/22 lisinopril 10 1 tab PO DAILY #90 tabs 05/22/22 mg-hydrochlorothiazide 12.5 mg tablet montelukast 10 mg tablet 10 mg PO DAILY #90 tabs 05/22/22 psyllium husk (aspartame) 3.4 5.8 g PO DAILY #1,040 grams 05/24/22 gram/5.8 gram oral powder (Metamucil Sugar-Free (aspartame)) lorazepam 0.5 mg tablet 0.25 mg PO HS PRN anxiety #15 tabs 06/08/22 Current Visit Medications: Current Medications Generic Name Dose Route Start Last Admin Trade Name Freq PRN Reason Stop Dose Admin Acetaminophen 1,000 mg 06/25/22 06:00 Acetaminophen 500 Mg Tab PO Q4H PRN PRN Miscellaneous Medication 0 ml 06/25/22 06:00 06/25/22 08:39 Tropicam./Phenyleph. 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 Chronic pain G89.29 Depressive disorder F32.9 Diabetes mellitus 06/13/12 E11.9 Essential hypertension 01/19/13 I10 Gastroesophageal reflux disease with esophagitis K21.0 Insomnia G47.00 Osteoarthritis M19.90 Shoulder pain, bilateral 02/14/07 M25.511, M25.512 Diabetic retinopathy ~01/08/18 E11.319 History of poliomyelitis Z86.12 Diabetic foot with normal protective sensation, peripheral vasculature, and bone structure Z91.89 Sciatic nerve pain M54.30 Conductive hearing loss, external ear H90.2 Sensorineural hearing loss of both ears H90.3 Thyroid lesion E07.89 Atherosclerosis I70.90 Knee pain, left M25.562 Cough variant asthma J45.991 Fatigue R53.83 Anxiety F41.9 Dyspnea R06.00 Left lower quadrant abdominal pain R10.32 Hernia of anterior abdominal wall K43.9 Medical History Medical History Advanced directives, counseling/discussion Chronic low back pain with left-sided sciatica (02/12/14) Post Polio Syndrome [facility] MRI 05/03 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 Uses Lidocaine patches and Hydrocodone 10-325 up to TID PRN. She continues to walk for exercise. Also uses 200g Gabapentin QD. Family hx-breast malignancy mother Fibrocystic disease of breast left breast bx Grief Loss of spouse 05/2019 Hyperplastic polyps of stomach 03/30/15;[facility] Impacted cerumen of both ears Medical History Comments:: 06/25/22 repeat BP 176/70 06/25/22 pt reports she passed out previously after having anesthesai with dental surgery Surgical History Surgical History Abdominal hysterectomy Appendectomy Biopsy of breast Bladder Surgery DILATION ESOPHAGEAL; MULTIPLE TIMES DISC SURGERY Reduction mammoplasty (~2001) Tobacco Smoking/Tobacco Use Status: Never Passive smoking exposure: Yes Second hand exposure: Yes Alcohol Alcohol Intake: never Substance Use Substance use: Never Substance use type: does not use and painkillers Details: perscribed hydocodone Prental History History 5 Para 3 Hx # Term Pregnancies 3 Multiple births Hx # Pregnancies Ectopic pregnancies AB induced Hx Number of Living Children 3 AB spontaneous 2 Vital Signs and Lab Results Vital Signs Most Recent Vital Signs in EMR: Most Recent Vital Signs Temp Pulse Resp BP Pulse Ox 36.6 C 80 18 150/96 H 95 06/25/22 08:30 06/25/22 08:30 06/25/22 08:30 06/25/22 08:30 06/25/22 08:30 Point of Care Results Point of Care Results: Finger Stick Blood Glucose 103 06/25/22 08:34 Lab Results Blood Type / Crossmatch: No Data to Display Complete Blood Count: No Data to Display Complete Metabolic Panel: No Data to Display Liver Function Panel: No Data to Display Coagulation Panel: No Data to Display Cardiac Panel: No Data to Display Arterial Blood Gas: No Data to Display Venous Blood Gas: No Data to Display Pancreas Panel: No Data to Display Thyroid Panel: No Data to Display Infectious Disease: No Data to Display Blood Cultures: No Data to Display Toxicology Panel: No Data to Display Imaging and Studies Imaging and Studies Study information below may be from another EMR and interpreted by another provider. Please see original notes in EMR for more complete details. EKG Summary: Conclusion Sinus rhythm...normal P axis, V-rate 60- 99 02/10/22 Stress Test Summary: MPI Conclusion The ejection fraction was 77% with stress. There were no wall motion abnormalities. There is no evidence of ischemia on the imaging portion of the exam. This represents a normal SPECT stress test. 10/30/19 Echocardiogram Summary: Conclusion Left Ventricle : The left ventricle is normal size. The left ventricular systolic function is normal. The left ventricular ejection fraction is within the normal range. There is normal left ventricular wall thickness. There is normal LV segmental wall motion. The left ventricular diastolic function is normal. LVEF is 60-65%. Right Ventricle : The right ventricle is normal size. The right ventricular systolic function is normal. The RVSP is 19.2mmHg. Atria: Both atria normal in size. Valves: There are no hemodynamically significant valvular lesions. Great Vessels : The aortic root is normal in size. The ascending aorta is mildly dilated. IVC is normal in size and collapses >50% with inspiration. 11/03/19 Anesthesia Assessment and Plan Anesthesia History Personal History: No History of Anesthesia Complications Family History: No Family History of Anesthesia Complications Exercise Tolerance Exercise Tolerance: Metabolic Equivalents>4 Cardiac & Pulmonary Exam Cardiac Exam: Normal S1/S2 Heart Sounds Pulmonary Exam: Clear Bilateral Breath Sounds Implantable Cardiac Device Does patient have a Pacemaker or an ICD?: No Airway Exam Known Difficult Airway: No Mallampati Class: 3 Mouth Opening: Narrow (< 3cm) Thyromental Distance: Less than 3 cm Neck Range of Motion: Limited ROM Neck Circumference: Normal Teeth Condition: Normal Dentition ASA Classification ASA Score: ASA 2 Emergency Case?: No NPO Status NPO Status: NPO Clears >2 hours, Solids >8 hours Anesthesia Plan Resuscitation Status: Full Code Anesthesia Technique: MAC Anesthesia Airway Planned: Natural Airway Monitors Used: Standard Monitors Preoperative Comments:: 77 yo female for cataract removal. Sig PMHx: HTN, DM, GERD, back pain (chronic pain med), anxiety, chronic cough/phlem. Very unsure of what meds she has taken today. Discussed risks, benifits of sedation vs no sedation. Plan for no MKO.
[2022-06-25 09:08] VITALS: BMI 24.7
--- NOTE | 2022-06-25 09:24 | PDOC.DSDIS_ITS ---
Date of service: 06/25/22 Time of Service: 09:57 Discharge Plan Disposition Patient Disposition: Home Discharge Details Attending Provider: Sammy Garza Primary Care Provider: Zev Denton Home Meds and New Rx's Prescriptions: No Action (DME) blood-glucose meter Kit See Rx Instructions .ROUTE .MEDSUPPLY Qty: 1 0RF Rx Instructions: TID glucose monitoring - E11.9 lorazepam 0.5 mg tablet 0.25 mg PO HS MDD 0.25mg PRN (Reason: anxiety) Qty: 15 0RF albuterol sulfate 90 mcg/actuation HFA aerosol inhaler 2 puff inhalation BID PRN (Reason: shortness of breath or wheezing) Qty: 8.5 6RF (DME) blood sugar diagnostic Strip See Dose Instructions .ROUTE .MEDSUPPLY Qty: 300 6RF Dose Instruction: As directed Rx Instructions: Check blood sugar tid: Dx E11.9 bupropion HCl 150 mg tablet sustained-release 12 hr 150 mg PO BID Qty: 180 3RF esomeprazole magnesium 40 mg capsule,delayed release(DR/EC) 40 mg PO BID Qty: 180 3RF fluticasone propion-salmeterol [Advair HFA] 115-21 mcg/actuation HFA aerosol inhaler 2 puff inhalation BID Qty: 8 6RF gabapentin 100 mg capsule 200 mg PO HS Qty: 180 3RF glimepiride 2 mg tablet 2 mg PO QPM Qty: 90 3RF insulin glargine [Lantus Solostar U-100 Insulin] 100 unit/mL (3 mL) insulin pen 30 - 40 unit SC DAILY 30 Days Qty: 15 2RF (DME) lancets [OneTouch Delica Lancets] 33 gauge misc See Dose Instructions .ROUTE .MEDSUPPLY Qty: 300 4RF Dose Instruction: As directed Rx Instructions: 3x per day - glucose monitoring Dx E11.65 lidocaine 5 % adhesive patch,medicated 1 patch TP DAILY Qty: 10 8RF Tradjenta 5 mg tablet 5 mg PO DAILY Qty: 90 3RF lisinopril-hydrochlorothiazide 10-12.5 mg tablet 1 tab PO DAILY Qty: 90 3RF montelukast 10 mg tablet 10 mg PO DAILY Qty: 90 3RF hydrocodone-acetaminophen 10-325 mg tablet 1 tab PO BID MDD 20mg PRN (Reason: backpain) Qty: 60 0RF Metamucil Sugar-Free (aspart) 3.4 gram/5.8 gram powder 5.8 g PO DAILY Qty: 1040 6RF Rx Instructions: start 1/2 TBSP daily and work up to a full TBSP daily in 4oz water multivitamin [Daily Multi-Vitamin] 1 EACH tablet 1 ea PO DAILY One-Per-Day [place]-3 1 EACH capsule,delayed release(DR/EC) 1,000 mg PO HS narcotic contract 0RF Rx Instructions: narcotic contract cholecalciferol (vitamin D3) 2,000 UNIT tablet 2,000 unit PO DAILY naloxone [Narcan] 4 MG spray,non-aerosol 4 mg NS PRN Qty: 2 0RF acetaminophen 500 mg tablet 500 mg PO TID PRN (DME) Hearing Aid Batteries Misc See Rx Instructions .ROUTE .MEDSUPPLY Qty: 8 12RF Rx Instructions: As directe- Energizer [id number]- Hearing aid Batteries (DME) pen needle, diabetic [Microdot Insulin Pen Needle] 32 gauge x 5/32 needle See Rx Instructions .ROUTE .MEDSUPPLY Qty: 90 4RF Rx Instructions: For daily insulin injection-DM E11.9 Discharge Instructions Stand Alone Forms: Post-op Topical Cataract, Shantell Stanford ([facility]) Discharge Orders Discharge Orders: Discharge Order (Routine); Ordered 06/25/22 Ordered By: Sammy Garza DS: Diagnosis Discharge Diagnosis (1) Nuclear age-related cataract, left eye: Status: Resolved (2) Posterior subcapsular age-related cataract of left eye: Status: Resolved
[2022-06-25] MEDS: Tetracaine 0.5% 4 ML BTL OS (09:31)
[2022-06-25] MEDS: Povidone-Iodine Ophth 30 ML BTL (09:32)
[2022-06-25] MEDS: Balanced Salt Soln.-PLUS 500 ML BAG (09:36)
[2022-06-25] MEDS: Duovisc Viscoelastic System EACH 1 EACH (09:36)
[2022-06-25] MEDS: Lidocaine 1% Pres-Free 5 ML VIAL (09:37)
[2022-06-25] MEDS: Phenylephrine/Lidocaine (15/10) MG/ML 1 ML VIAL (09:38)
[2022-06-25 09:53] VITALS: BP 186/70; PULSE 77; RESP 17; TEMP 36.1; O2SAT 96
--- NOTE | 2022-06-25 09:57 | W.PM.OP ---
Date of service: 06/25/22 Time of Service: 09:58 Operative Note Operative Note DATE OF PROCEDURE: 06/25/22 PRE-OP DIAGNOSIS: Nuclear/posterior subcapsular cataract, left eye POST-OP DIAGNOSIS: same PROCEDURE: Cataract extraction using phacoemulsification with intraocular lens implant, left eye SURGEON: Sammy Garza ANESTHESIA TYPE: Local By Surgeon and MAC Refer to Anesthesia Record PATHOLOGY: none sent COMPLICATIONS: None Patient was transported to: same day Patient's condition: stable Implants: Teodoro and Teodoro Tecnis Eyhance [id number] Indications: Progressive decreased vision due to cataract, left eye Procedure Description: CATARACT SURGERY OPERATIVE REPORT PREOPERATIVE DIAGNOSIS: 1. Nuclear/posterior subcapsular cataract, left eye POSTOPERATIVE DIAGNOSIS: Same OPERATION: 1. Cataract extraction using phacoemulsification with posterior chamber intraocular lens implant, left eye. IOL: IOL Assessment Specialist/Model: Teodoro & Teodoro Tecnis Eyhance DIB00 IOL Power: + 12.0 diopters IOL Serial Number: [id number] Optic Diameter: 6.0 mm Haptic/Overall Diameter: 13.0 mm PHACO INFO: Kishore CoreValue Softwareurion Vision System with OZil and Active Fluidics Cumulative Dispersed Energy (CDE): 8.12 seconds SURGEON: Sammy Garza MD, BHAVNA ANESTHESIA: Monitored A [facility] (MAC), with local sub-tenon's anesthetic infiltration COMPLICATIONS: None SPECIMENS: None INDICATIONS FOR PROCEDURE: The patient is a 77-year-old lady with history of diminished visual acuity in her left eye secondary to the development of nuclear/posterior subcapsular cataract. She is significantly symptomatic that she desires cataract surgery and attempt to improve and maximize her vision. The option of cataract surgery was offered to the patient and she wished to proceed. PROCEDURE: The correct surgical eye was identified and marked as the left eye and the pupil was dilated in the preoperative area using mydriatics and cycloplegics. The dilated pupil size was 8.0 mm. The patient elected to proceed without oral sedation. The patient was brought to the operating room where cardiopulmonary monitoring was instituted and surgical time-out was performed, confirming the correct operative eye and IOL power. Topical anesthesia was administered and ophthalmic povidone-iodine 5% was instilled into the conjunctival fornices. Lidocaine gel was applied to the cornea and the bryan-ocular area was prepped with Betadine 10% solution and draped in the usual sterile fashion for intraocular surgery, including an aperture drape. A Tegaderm transparent film dressing was cut in half and used to cover the lashes and lid margins. Care was taken to sequester the lashes and lid margins under the Tegaderm dressing. A lid speculum was placed between the lids of the operative eye and the Kishore LuxOR Revalia operating microscope was maneuvered into position. Diony scissors were then used to make a conjunctival buttonhole approximately 6mm posterior to the limbus in the inferonasal quadrant. Blunt dissection was carried out to expose bare sclera, and a blunt-tipped sub-tenon?s anesthesia cannula was introduced and passed posteriorly along the globe where non-preserved plain lidocaine was injected into posterior sub-Tenon?s space. A sideport knife was used to make a paracentesis port superiorly/superiortemporally. Intraocular phenylephrine/lidocaine was injected int the anterior chamber.. The anterior chamber was filled with viscoelastic. A keratome knife was used to construct a 2-plane near-clear corneal tunnel extending 2.0mm into clear cornea temporally. A flap was raised on the anterior capsule and capsulorhexis forceps were used to complete a continuous curvilinear capsulorhexis of 5.5 mm. Balanced salt solution was then used to perform cortical cleaving hydrodissection and nuclear hydrodelineation until the lens could be freely rotated within the capsular bag. The lens nucleus was then disassembled and removed within the capsular bag and iris plane using phacoemulsification. Residual cortical material was removed using the 45-degree angled silicone I/A tip with 0.3mm port. The posterior capsule was carefully polished to remove as much residual lens epithelial cells as safely possible. The capsular bag was then inflated and the anterior chamber deepened with viscoelastic. The lens implant described above was inserted into the capsular bag using the Teodoro and Teodoro Simplicity pre-loaded injector. . A Kuglen hook was used to dial the IOL into position. Residual viscoelastic was then removed first from posterior to the IOL, then from the anterior chamber using the I/A handpiece. The lens implant was noted to center nicely within the capsular bag. The incisions were stromally hydrated, and the anterior chamber was reformed using BSS. Then 0.5cc of moxifloxacin 1.0mg/ml were injected into the capsular bag and anterior chamber. The incisions were checked with a Weck spear and found to be secure. Several drops of ophthalmic povidone-iodine 5% were then applied to the eye followed by two drops of Imprimis combination prednisolone/moxifloxacin/nepafenac solution. The drapes were removed and a clear plastic protective eye shield was placed over the eye. The patient was then returned to Same Day Surgery in stable condition.
--- NOTE | 2022-06-25 10:12 | W.ANESPOSTOP ---
Postoperative Evaluation Date, Time and Location Date Performed: 06/25/22 Time Performed: 10:13 Patient Location: Day Surgery Unit Vital Signs Most Recent Imported Vital Signs: Most Recent Vital Signs Temp Pulse Resp BP Pulse Ox 36.1 C L 77 17 186/70 H 96 06/25/22 09:53 06/25/22 09:53 06/25/22 09:53 06/25/22 09:53 06/25/22 09:53 Pain Score Most Recent Pain Score: Most Recent Pain Score Pain Level 0 06/25/22 09:53 Assessment Mental Status: Awake (Alert & Oriented to Patient Baseline) Airway and Respiratory Function: Patent airway with normal (patient baseline) respiratory exam Cardiovascular Function: Hemodynamically Stable Hydration Status: Adequately Hydrated Nausea & Vomiting: No Nausea or Vomiting Pain: Pt. Denies Any Pain Peripheral Nerve Block: Patient did not receive a nerve block
[2022-06-25 10:25] VITALS: BP 152/96
== END 2022-06-25 10:30 | disposition home or self-care (01) ==
LOC: SUR 08:15
PROVIDERS: PCP Nurse Practitioner Family; Visit Provider Ophthalmology
PROC: (CPT 66984; principal; 2022-06-25 10:30)
DX: H25.12 Age-related nuclear cataract, left eye (principal); H25.042 Posterior subcapsular polar age-related cataract, left eye; K21.00 Gastro-esophageal reflux disease with esophagitis, without bleeding; I10 Essential (primary) hypertension; E11.9 Type 2 diabetes mellitus without complications
CPT/HCPCS: 66984; V2632

== ENCOUNTER 2022-06-29 20:11 | Inpatient (IN) | payer MEDICARE, MEDICAID, SELFPAY ==
[2022-06-29] VITALS (35 sets, daily range): BP systolic 127–180; BP diastolic 53–116; PULSE 72–88; RESP 8–22; TEMP 36.6; O2SAT 93–95
--- NOTE | 2022-06-29 | DI.CT_ITS ---
Exam(s) 3D RECON ON CT WORKSTATION EXAM: 3D RECON ON CT WORKSTATION CLINICAL HISTORY: L tibial plateau fracture. Only tibia and fibula TECHNIQUE: COMPARISON: No exams were available for comparison FINDINGS: Please refer to dictation from the original CT scan performed same date. There should be no extra charge for this reconstruction IMPRESSION: As above.
--- NOTE | 2022-06-29 | DI.RAD_ITS ---
Exam(s) XR CHEST 2V PA LATERAL EXAM: XR CHEST 2V PA LATERAL CLINICAL HISTORY: trauma. surgical left knee fracture. TECHNIQUE: 2D digital imaging was performed. COMPARISON: CR,XR XR RIBS LT W PA LAT CHEST from 02/10/2022 FINDINGS: 2 views: Heart size is normal. The mediastinum is not widened. Lungs are clear. No infiltrates nor pleural effusions. IMPRESSION: No acute pulmonary findings. DATA REPOSITORY: RADIATION DOSE DELIVERED:
--- NOTE | 2022-06-29 | DI.CT_ITS ---
Exam(s) CT LOWER EXTREMITY LT WO EXAM: CT LOWER EXTREMITY LT WO CLINICAL HISTORY: L tibial plateau. TECHNIQUE: Imaging Protocol: Axial computed tomography images with coronal and sagittal reformatted images were created and reviewed. CONTRAST MATERIAL: None COMPARISON: CT 3D RECON ON CT WORKSTATION from 06/29/2022 FINDINGS: OSSEOUS: There fractures on both sides the tibial plateau. The lateral tibial plateau fracture is co mminuted and displaced with significant depression. Also fracture through the region of the tibial s pines, nondisplaced. There is also a more vertically orientated fracture of the medial tibial platea u extending into the medial metaphysis of the tibia, this fracture line without displacement nor depr ession. Joint effusion-hemarthrosis noted. There are no fractures of the femoral condyles. There is an impacted fracture of the fibular head-ne ck. No incidental osseous lesions. IMPRESSION: Tibial plateau fractures involving both the medial and lateral aspect of the tibial plateau. The lat eral fractures significantly more comminuted and displaced and depressed. Impacted fibular head-neck fracture. Hemarthrosis RADIATION DOSE DELIVERED: Total DLP DATA REPOSITORY: All CT scans at this facility are submitted to the National Radiology Data Registry (NRDR) Dose Index Registry (DIR) with the [employer] [place] [employer] (A[employer]). RADIATION OPTIMIZATION: All CT scans at this facility use at least one of these dose optimization te chniques: automated exposure control; mA and/or kV adjustment per patient size (includes targeted exa ms where dose is matched to clinical indication); or iterative reconstruction.
--- NOTE | 2022-06-29 20:21 | ED.GENADUL_ITS ---
Discharge Plan Disposition Patient Disposition: Admit to [facility] Discharge Details Clinical Impression: Fracture of tibial plateau Admit Date/Time: 06/29/22 22:31 Admit Provider: Winston Perez Attending Provider: Winston Perez Primary Care Provider: Zev Denton ED Provider: Erika Ritter Discharge Data Discharge Date/Time-TO BE ENTERED AT DEPARTURE: 06/30/22 00:02 Medical Decision Making Patient's knee films showed fractures of the proximal tibia and fibula with associated hemarthrosis. There is a moderately depressed and displaced fracture of the medial tibial plateau. There is an impacted fracture of the fibular head . There is moderate amount of joint fluid compatible with hemarthrosis. Femur and distal tib-fib showed no fracture seen. Case discussed with Dr. Stein from orthopedic surgery. He reviewed the films and feels that the patient will need operative repair. This was all discussed with the patient and her daughter as well. Neither one of them feels that she can go home and the patient was admitted to Dr. Wills, hospitalist. Dr. Stein ordered a CT scan of the patient's knee as well as chest x-ray. Lab Data Lab results reviewed: Yes I reviewed the patient's lab results. ECG Data Interpretation: EKG: Normal sinus rhythm at 75, T wave flattening in 1 and aVL, some artifact HPI General Date/Time Provider Initiated Documentation: 06/29/22 20:20 . HPI Narrative: 77-year-old female patient presents with a chief complaint of left knee pain after falling down an embankment. Patient states that she lives in the [facility] and was tossing some suet when she lost her balance and slipped. She slid about 8 feet down an embankment and jammed her leg. The patient did not hit her head. She has no neck, chest or abdominal pain. She denies any other injury. She was not able to bear weight on her left leg afterward. The patient reports that the pain in her knee is severe when she moves it. It is sharp and constant in nature. She has no hip pain. Of note, the patient's had cataract surgery on Saturday of this week, 4 days ago. Related Data Home Medications Medication Instructions Recorded Confirmed multivitamin (Daily Multi-Vitamin 1 ea PO DAILY 06/12/12 06/29/22 tablet) omega-3 fatty acids-fish oil 684 1,000 mg PO HS 06/12/12 06/29/22 mg-1,200 mg capsule,delayed release (One-Per-Day [place]-3) cholecalciferol (vitamin D3) 50 2,000 unit PO DAILY 05/10/15 06/29/22 mcg (2,000 unit) tablet naloxone 4 mg/actuation nasal 4 mg NS PRN #2 sprays 12/24/16 06/29/22 spray (Narcan) acetaminophen 500 mg tablet 500 mg PO TID PRN 11/25/17 06/29/22 Hearing Aid Batteries (hearing aid #8 ea 06/05/21 06/08/22 accessory) blood-glucose meter #1 ea 06/29/21 06/08/22 pen needle, diabetic 32 gauge x #90 ea 03/23/22 06/08/22 (Microdot Insulin Pen Needle) albuterol sulfate 90 mcg/actuation 2 puff inhalation BID PRN 05/22/22 06/29/22 aerosol inhaler shortness of breath or wheezing #8.5 grams blood sugar diagnostic #300 ea 05/22/22 06/08/22 bupropion HCl 150 mg tablet,12 hr 150 mg PO BID #180 tabs 05/22/22 06/29/22 sustained-release esomeprazole magnesium 40 mg 40 mg PO BID #180 caps 05/22/22 06/29/22 capsule,delayed release fluticasone propionate 115 2 puff inhalation BID #8 grams 05/22/22 06/29/22 mcg-salmeterol 21 mcg/actuation HFA inhaler (Advair HFA) gabapentin 100 mg capsule 200 mg PO HS #180 caps 05/22/22 06/29/22 glimepiride 2 mg tablet 2 mg PO QPM #90 tabs 05/22/22 06/29/22 hydrocodone 10 mg-acetaminophen 1 tab PO BID PRN backpain #60 tabs 05/22/22 06/29/22 325 mg tablet insulin glargine 100 unit/mL (3 30 - 40 unit (0.3 - 0.4 mL) subcut 05/22/22 06/29/22 mL) subcutaneous pen (Lantus DAILY DM E11.9 Daily Insulin Solostar U-100 Insulin) Injection 30 days #15 mL lancets 33 gauge (OneTouch Delica #300 ea 05/22/22 06/08/22 Lancets) lidocaine 5 % topical patch 1 patch topical DAILY low back 05/22/22 06/29/22 pain #10 ea linagliptin 5 mg tablet (Tradjenta) 5 mg PO DAILY #90 tabs 05/22/22 06/29/22 lisinopril 10 1 tab PO DAILY #90 tabs 05/22/22 06/29/22 mg-hydrochlorothiazide 12.5 mg tablet montelukast 10 mg tablet 10 mg PO DAILY #90 tabs 05/22/22 06/29/22 psyllium husk (aspartame) 3.4 5.8 g PO DAILY #1,040 grams 05/24/22 06/29/22 gram/5.8 gram oral powder (Metamucil Sugar-Free (aspartame)) lorazepam 0.5 mg tablet 0.25 mg PO HS PRN anxiety #15 tabs 06/08/22 06/29/22 Previous Rx's Medication Instructions Recorded naloxone 4 mg/actuation nasal 4 mg NS PRN #2 sprays 12/24/16 spray (Narcan) Hearing Aid Batteries (hearing aid #8 ea 06/05/21 accessory) blood-glucose meter #1 ea 06/29/21 pen needle, diabetic 32 gauge x #90 ea 03/23/22 (Microdot Insulin Pen Needle) albuterol sulfate 90 mcg/actuation 2 puff inhalation BID PRN 05/22/22 aerosol inhaler shortness of breath or wheezing #8.5 grams blood sugar diagnostic #300 ea 05/22/22 bupropion HCl 150 mg tablet,12 hr 150 mg PO BID #180 tabs 05/22/22 sustained-release esomeprazole magnesium 40 mg 40 mg PO BID #180 caps 05/22/22 capsule,delayed release fluticasone propionate 115 2 puff inhalation BID #8 grams 05/22/22 mcg-salmeterol 21 mcg/actuation HFA inhaler (Advair HFA) gabapentin 100 mg capsule 200 mg PO HS #180 caps 05/22/22 glimepiride 2 mg tablet 2 mg PO QPM #90 tabs 05/22/22 hydrocodone 10 mg-acetaminophen 1 tab PO BID PRN backpain #60 tabs 05/22/22 325 mg tablet insulin glargine 100 unit/mL (3 30 - 40 unit (0.3 - 0.4 mL) subcut 05/22/22 mL) subcutaneous pen (Lantus DAILY DM E11.9 Daily Insulin Solostar U-100 Insulin) Injection 30 days #15 mL lancets 33 gauge (OneTouch Delica #300 ea 05/22/22 Lancets) lidocaine 5 % topical patch 1 patch topical DAILY low back 05/22/22 pain #10 ea linagliptin 5 mg tablet (Tradjenta) 5 mg PO DAILY #90 tabs 05/22/22 lisinopril 10 1 tab PO DAILY #90 tabs 05/22/22 mg-hydrochlorothiazide 12.5 mg tablet montelukast 10 mg tablet 10 mg PO DAILY #90 tabs 05/22/22 psyllium husk (aspartame) 3.4 5.8 g PO DAILY #1,040 grams 05/24/22 gram/5.8 gram oral powder (Metamucil Sugar-Free (aspartame)) lorazepam 0.5 mg tablet 0.25 mg PO HS PRN anxiety #15 tabs 06/08/22 Allergies Allergy/AdvReac Type Severity Reaction Status Date / Time lidocaine Allergy Severe I pass Verified 06/29/22 20:16 out adhesive Allergy Intermediate Rash Verified 06/29/22 20:16 ampicillin Allergy Unknown Verified 06/29/22 20:16 cyclobenzaprine Allergy Unknown Verified 06/29/22 20:16 erythromycin base Allergy Unknown Verified 06/29/22 20:16 Penicillins Allergy Unknown Verified 06/29/22 20:16 Sulfa (Sulfonamide Allergy Unknown Verified 06/29/22 20:16 Antibiotics) levofloxacin AdvReac Severe VOMITING,DI Verified 06/29/22 20:16 ARRHEA metformin AdvReac Intermediate DIARRHEA Verified 06/29/22 20:16 pregabalin AdvReac Mild FATIGUE Verified 06/29/22 20:16 epinephrine AdvReac Unknown Verified 06/29/22 20:16 rofecoxib AdvReac Unknown Verified 06/29/22 20:16 General Stated Complaint: Trauma PETER: 2 Review of Systems Constitutional Constitutional: Denies chills, Denies fever(s), Denies headache(s) and Denies weakness Eyes Eyes: Denies diplopia and Reports other (no redness) ENT Ears, Nose, Mouth, and Throat: Denies otalgia, Denies headache(s), Denies nasal congestion, Denies nasal discharge, Denies neck pain and Denies sore throat Cardiovascular Cardiovascular: Denies chest pain, Denies palpitations and Denies dyspnea Respiratory Respiratory: Denies cough and Denies dyspnea Gastrointestinal Gastrointestinal: Denies abdominal pain, Denies diarrhea, Denies nausea and Denies vomiting Genitourinary Genitourinary: Denies dysuria Comments: No pelvic pain or hip pain Musculoskeletal Musculoskeletal: Denies muscle weakness, Denies neck pain, Denies numbness and Reports other (edema) Comments: Patient has left knee edema and left lower extremity pain. Integumentary/Breasts Skin/Breast: Denies change in pigmentation and Denies rash Comments: Patient denies ecchymosis or laceration to left lower extremity Neurologic Neurologic: Denies headache(s), Denies numbness and Denies weakness Endocrine Endocrine: Denies palpitations PFS All Active Problems Displaced bicondylar fracture of left tibia, initial encounter for closed fracture (Acute) Discharge planning issues (Acute) DVT prophylaxis (Acute) Fracture of tibial plateau (Acute) Incisional hernia (Acute) Centimeters superior to the umbilicus from remote open [place] fundoplication. 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 No concerns for diversion. Depressive disorder (Chronic) Diabetes mellitus (Chronic 06/13/12) Essential hypertension (Chronic 01/19/13) Gastroesophageal reflux disease with esophagitis (Chronic) h[place]o esophageal strict[place] [facility] Insomnia (Chronic) Osteoarthritis (Chronic) Shoulder pain, bilateral (Chronic 02/14/07) right shoulder; MRI-DJD/rotator cuff Diabetic retinopathy (Chronic ~01/08/18) 01/08/18; [place]; MILD B/L-kb 05/08/20: [place]; MILD B/L-kb History of poliomyelitis (Chronic) Diabetic foot with normal protective sensation, peripheral vasculature, and bone structure (Acute) Sciatic nerve pain (Chronic) Right Conductive hearing loss, external ear (Chronic) Sensorineural hearing loss of both ears (Chronic) Thyroid lesion (Chronic) Atherosclerosis (Chronic) Knee pain, left (Chronic) Cough variant asthma (Chronic) [facility] [place] 03/04/20 Fatigue (Chronic) Anxiety (Chronic) Dyspnea (Acute) Left lower quadrant abdominal pain (Acute) Hernia of anterior abdominal wall (Acute) containing fat and mesenteric vessel Medical History Advanced directives, counseling/discussion Chronic low back pain with left-sided sciatica (02/12/14) Post Polio Syndrome [facility] [place] 05/03 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 Uses Lidocaine patches and Hydrocodone 10-325 up to TID PRN. She continues to walk for exercise. Also uses 200g Gabapentin QD. Family hx-breast malignancy mother Fibrocystic disease of breast left breast bx Grief Loss of spouse 05/2019 Hyperplastic poly[place] of stomach [place]30[place] Impacted cerumen of both ears Surgical History Abdominal hysterectomy Appendectomy Biopsy of breast Bladder Surgery DILATION ESOPHAGEAL; MULTIPLE TIMES DISC SURGERY Reduction mammoplasty (~2001) Family History Brother Essential hypertension Brother No problems noted. Mother Essential hypertension Personal history of malignant neoplasm colon and throat Father Heart disease Sister Diabetes Essential hypertension Sister Essential hypertension Sister No problems noted. Maternal Aunts Personal history of malignant neoplasm Breast Cancer Other Family hx-breast malignancy Social History Smoking/Tobacco Use Status: Never Second Hand Exposure: Yes Smoking risk assessment performed?: Yes Alcohol Intake: never Drug use: Never Substance use type: does not use and painkillers Details: perscribed hydocodone Caregiver/Support person: No Household members: none Housing: other Details: Mobile Home Communication Needs: Hard of Hearing Do you need help understanding health information?: Never current occupation: CAREGIVER Pets and animals: Yes Pets and animals: cat(s) and dog(s) Sexually active: No Do you think of yourself as: straight/heterosexual Current gender identity: female What is your relationship status?: How often do you talk on the phone with friends or family?: three or more times per week How often do you get together with friends or relatives?: three or more times per week How often do you attend alevism or baptist services?: 4 or more times per year Do you belong to any clubs or organized social groups?: no Panel score (0-1 are the most socially isolated patients): 2 What type of physical activity do you participate in: walking Duration: 30-45 minutes/day Frequency: daily [place]/Advent: Religion Special helena needs: Yes Seatbelt use: always Helmet use: No Drive intox or ride w/intox new car driver: No Do you feel safe at home: Yes Do you feel safe in your relationship?: Yes Additional Social history: Retired RN, 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 Plays several instruments. History History 5 Para 3 Hx # Term Pregnancies 3 Multiple births Hx # Pregnancies Ectopic pregnancies AB induced Hx Number of Living Children 3 AB spontaneous 2 Exam Const General: no acute distress, well developed, well groomed and not in acute distress Nutritional Appearance: well nourished Orientation: alert and oriented x3 HENMT Head: normocephalic and atraumatic Ears: external ears normal Mouth: oropharynx normal and moist mucous membranes Throat: posterior oropharynx normal Eyes Conjunctivae: conjunctivae normal Neck Neck: full ROM, supple and other (spine NTP) Chest Chest: normal inspection of the chest and other (NT compression) Resp Effort & Inspection: normal respiratory effort Auscultation: clear to auscultation bilaterally Cardio Rate: regular rate Rhythm: regular rhythm Heart Sounds: no murmurs and no rubs GI Inspection: normal to inspection Palpation: soft, nontender and other (non distended) Auscultation: normal bowel sounds Back/Spine/Pelvis Back: no CVA tenderness and other (spine NTP) Cervical Spine: cervical ROM normal, No pain with cervical ROM and No cervical spinal tenderness Thoracic/Lumbar Spine: thoracic and lumbar spine normal to inspection, No paraspinal tenderness and No thoracic spinal tenderness Pelvis: no pain with anterior-posterior compression and no pain with lateral compression Skin General skin exam: no rashes or lesions noted and other (pink, warm, dry) Neuro General: patient alert, patient awake and patient oriented x3 Speech: speech normal Motor: other (BETANCUR) Sensory Exam: no sensory deficits noted Extrem General: normal to inspection, full ROM (BUE and RLE; same AT, NTP, FROM) and no pedal edema Other: Left lower extremity with grossly swollen knee including over lateral fibula. Same tender to palpation. Patient is neurovascularly intact distally with no pain in distal tibia ankle and foot. Thigh was vaguely tender to palpation. Psych Mental Status: mental status grossly normal Speech and Movement: speech and movement normal Affect: normal affect Course Reevaluation(s) Initial Evaluation: Patient reevaluated multiple times for pain control. She and her sister were updated on her test results and plan for admission. Vital Signs Vital signs: Vital Signs Temperature 36.6 C 06/29/22 20:10 Pulse 84 06/29/22 20:10 Respiratory Rate 13 06/29/22 20:10 Blood Pressure 139/65 06/29/22 20:10 Pulse Oximetry 93 06/29/22 20:10 Temperature 36.6 C 06/29/22 20:10 Temperature Source Oral 06/29/22 20:10 Pulse 84 06/29/22 20:10 Respiratory Rate 13 06/29/22 20:10 Respiratory Effort Normal 06/29/22 20:10 Blood Pressure 139/65 06/29/22 20:10 Blood Pressure Position Sitting 06/29/22 20:10 Pulse Oximetry 93 06/29/22 20:10 Oxygen Delivery Method Room Air 06/29/22 20:10 Oxygen Flow Rate 0 06/29/22 20:10 Pain Level 10 06/29/22 20:10
--- NOTE | 2022-06-29 20:30 | RT.EKG_ITS ---
APPROVED REPORT Exam: Resting ECG Reason for Exam: fall Patient Location: E HR:76 bpm ECG Measurements Heart Rate 76 AXIS NJ 159 P 64 QRSd 79 QRS 15 QT 415 T 80 QTc 468 Conclusion Sinus rhythm...normal P axis, V-rate 60- 99 I have reviewed and interpreted ECG and agree with software generated interpretation.
--- NOTE | 2022-06-29 20:45 | DI.RAD_ITS ---
Exam(s) XR FEMUR LT EXAM: XR FEMUR LT CLINICAL HISTORY: fall, pain. TECHNIQUE: 2D digital imaging was performed. COMPARISON: No exams were available for comparison FINDINGS: 3 views There are no fractures evident in the hip and remainder of the femur. Femoral condyles appear intact . However, there are fractures of the tibial plateau noted as well as impacted fracture of the fibular head-neck. IMPRESSION: Intact appearing femur. Fractures of the proximal tibia-fibula. DATA REPOSITORY: RADIATION DOSE DELIVERED:
--- NOTE | 2022-06-29 20:45 | DI.RAD_ITS ---
Exam(s) XR TIB/FIB LT EXAM: XR TIB/FIB LT CLINICAL HISTORY: prox pain post fall. TECHNIQUE: 2D digital imaging was performed. COMPARISON: No exams were available for comparison FINDINGS: 3 views There is a depressed lateral tibial plateau fracture with fracture line extending through the lateral metaphysis. No obvious fracture of the medial tibial plateau. There is also moderately impacted fracture of the fibular head. No other fracture seen lower down the tibia-fibula. IMPRESSION: Fractures of the proximal tibia and fibular head as described above. DATA REPOSITORY: RADIATION DOSE DELIVERED:
--- NOTE | 2022-06-29 20:45 | DI.RAD_ITS ---
Exam(s) XR KNEE LT 3V AP,LAT,SARAH EXAM: XR KNEE LT 3V AP,LAT,SARAH CLINICAL HISTORY: pain post fall. TECHNIQUE: 2D digital imaging was performed. COMPARISON: CR XR KNEE LT 3V AP,LAT,SARAH from 02/18/2020 FINDINGS: 3 views There fractures in the proximal tibia and tibial plateau.. There is a joint effusion-lipohemarthrosi s. No obvious fracture of the femoral condyles. IMPRESSION: Fractures of proximal tibia and fibula. Hemarthrosis. DATA REPOSITORY: RADIATION DOSE DELIVERED:
[2022-06-29] MEDS: MORPHine 10 MG/ML VIAL 2 MG IVP (20:58)
[2022-06-29] MEDS: Insulin Glargine 100 UNITS/ML UNIT 34 UNITS SC (22:02)
--- NOTE | 2022-06-29 22:02 | DI.VRAD_ITS ---
PROCEDURE INFORMATION: Exam: XR Left Tibia and Fibula Exam date and time: 06/29/2022 9:35 PM Age: 77 years old Clinical indication: Other: Pain post fall TECHNIQUE: Imaging protocol: Radiologic exam of the left tibia and fibula. Views: 2 views. COMPARISON: CR XR KNEE LT 3V AP,LAT,SARAH 02/18/2020 2:47 PM FINDINGS: Bones/joints: There is a moderately displaced and depressed fracture of the lateral tibial plateau. There is a moderately impacted fracture of the head of the fibula. Distal femur appears intact. No significant arthritic changes. Soft tissues: Normal. IMPRESSION: Fractures of the proximal tibia and fibula as described. Dictated and Authenticated by: Franky Harrell MD. Ordering:CYNTHIA James MD
--- NOTE | 2022-06-29 22:03 | DI.VRAD_ITS ---
PROCEDURE INFORMATION: Exam: XR Left Knee Exam date and time: 06/29/2022 9:40 PM Age: 77 years old Clinical indication: Other: Pain post fall TECHNIQUE: Imaging protocol: Radiologic exam of the left knee. Views: 3 views. COMPARISON: CR XR KNEE LT 3V AP,LAT,SARAH 02/18/2020 2:47 PM FINDINGS: Bones/joints: There is a moderately depressed and displaced fracture of the medial tibial plateau. There is an impacted fracture of the fibular head. Distal femur and patella appear intact. There is a moderate amount of joint fluid compatible with hemarthrosis. Soft tissues: Normal. IMPRESSION: Fractures of the proximal tibia and fibula with associated hemarthrosis Dictated and Authenticated by: Franky Harrell MD. Ordering:CYNTHIA James MD
--- NOTE | 2022-06-29 22:04 | DI.VRAD_ITS ---
PROCEDURE INFORMATION: Exam: XR Left Femur Exam date and time: 06/29/2022 9:34 PM Age: 77 years old Clinical indication: Other: Pain post fall TECHNIQUE: Imaging protocol: Radiologic exam of the left femur. Views: 2 views. COMPARISON: CT ABDOMEN PELVIS W 05/22/2022 2:46 PM FINDINGS: Bones/joints: Femur appears intact. Fractures of the proximal tibia and fibula are noted. Left hip joint is normally aligned. No prominent arthritic changes. Soft tissues: Unremarkable. IMPRESSION: Intact left femur. Partially visualized fractures of the proximal left tibia and fibula. Dictated and Authenticated by: Franky Harrell MD. Ordering:CYNTHIA James MD
[2022-06-29] MEDS: MORPHine 4 MG/ML SYR (22:27)
[2022-06-29 22:36] LABS: HGB 12.3 g/dL (11.2-15.7); MCH 31.1 pg (27.0-33.0); MCHC 35.1 % (32.0-36.0); MCV 89 fL (80-95); MPV 10.8 fL (8.0-11.0); Platelet Count 198 10^3/uL (130-400); RBC 3.95 10^6/uL (3.93-5.22); RDW 12.3 % (11.7-14.6); RDW-SD 40.2 fL; WBC 20.26 10^3/uL (4.4-10.8)
[2022-06-29 22:38] LABS: Lab Add On Test DONE
[2022-06-29 22:42] LABS: Source Nasal/Nares
[2022-06-29 22:51] LABS: ALT 26 U/L (14-59); AST 17 U/L (15-37); Albumin 3.4 g/dL (3.4-5.0); Alkaline Phosphatase 76 U/L (46-116); BUN 15 mg/dL (7-18); Bilirubin, Total 0.2 mg/dL (0.2-1.0); CREATININE 0.8 mg/dL (0.55-1.02); Calcium 9.4 mg/dL (8.5-10.1); Chloride 98 mmol/L (98-107); Glucose 165 mg/dL (74-106); Potassium 3.7 mmol/L (3.5-5.1); Sodium 133 mmol/L (136-145); Total Protein 6.7 g/dL (6.4-8.2)
[2022-06-29 22:52] LABS: INR 1.1 (0.9-1.1); Prothrombin Time 10.8 sec (9.3-11.0)
[2022-06-29 22:54] LABS: Hemoglobin A1C 7.1 % (<5.7)
[2022-06-29] MEDS: MORPHine 10 MG/ML VIAL 6 MG IVP (23:10)
[2022-06-29] MEDS: Ondansetron 4 MG/2 ML VIAL 8 MG IVP (23:11)
[2022-06-29 23:23] LABS: COVID-19 PCR Negative (Negative)
--- NOTE | 2022-06-29 23:38 | DI.VRAD_ITS ---
PROCEDURE INFORMATION: Exam: XR Chest Exam date and time: 06/29/2022 11:27 PM Age: 77 years old Clinical indication: Injury or trauma; Fall; Blunt trauma (contusions or hematomas) TECHNIQUE: Imaging protocol: Radiologic exam of the chest. Views: 2 views. COMPARISON: CR XR RIBS LT W PA LAT CHEST 02/10/2022 6:16 PM FINDINGS: Lungs: Unremarkable. No consolidation. Pleural spaces: Unremarkable. No pleural effusion. No pneumothorax. Heart/Mediastinum: Unremarkable. No cardiomegaly. Bones/joints: Moderate degenerative changes noted throughout the lower thoracic spine IMPRESSION: No acute disease Dictated and Authenticated by: Franky Harrell MD. Ordering:P.PROM Sarita Chamorro MD
--- NOTE | 2022-06-29 23:47 | DI.VRAD_ITS ---
PROCEDURE INFORMATION: Exam: CT Left Lower Extremity Without Contrast, Knee Exam date and time: 06/29/2022 11:20 PM Age: 77 years old Clinical indication: Injury or trauma; Fall; Fracture, traumatic; Closed fracture; Fibula and tibia; Left; Upper end of tibia TECHNIQUE: Imaging protocol: CT of the left lower extremity without contrast was performed. Exam focused on the knee. Radiation optimization: All CT scans at this facility use at least one of these dose optimization techniques: automated exposure control; mA and/or kV adjustment per patient size (includes targeted exams where dose is matched to clinical indication); or iterative reconstruction. COMPARISON: CR XR KNEE LT 3V AP,LAT,SARAH 06/29/2022 9:40 PM FINDINGS: Bones/joints: There is a moderately depressed and severely comminuted fracture of the lateral tibial plateau with extension of fracture lines into the medial tibial plateau. There is a moderately impacted fracture of the fibular head. There appears to be a linear osseous fragment partially imbedded in the lateral femoral condyle, measuring approximally 11 mm in length. There is moderately large hemarthrosis. Soft tissues: Significant soft tissue swelling noted about the knee, predominantly posterior aspect of the knee. IMPRESSION: Proximal tibia and fibular fractures with associated hemarthrosis. Findings suggesting 11 mm bone fragment partially embedded in the lateral femoral condyle Dictated and Authenticated by: Franky Harrell MD. Ordering:DAISY Chamorro MD
[2022-06-30] VITALS (88 sets, daily range): BP systolic 120–172; BP diastolic 44–127; PULSE 71–95; RESP 8–20; TEMP 35.8–37; O2SAT 78–99; BMI 25.3
--- NOTE | 2022-06-30 00:53 | HPE_ITS ---
Date of service: 06/30/22 Time of Service: 00:53 Assessment and Plan Assessment and plan (1) Fracture of tibial plateau: Status: Acute Assessment and plan: Mechanical fall with complex tibial plataeu and proximal fibular fracture. Case reviewed with Dr. Craig in the ED who is consulted, plans to proceed with surgery. She had adequate funcitonal capacity, EKG reassuring, proceed with surgery when available. (2) Chronic pain: Status: Chronic Assessment and plan: Continue chornic pain medicaiton and bowel regimen. She is also getting IV morphine for the acute pain. Qualifiers: Chronic pain type: other chronic pain Qualified Code(s): G89.29 - Other chronic pain (3) Diabetes mellitus: Status: Chronic Assessment and plan: A1c up somewhat but at a very good goal give age. Continue her glargine and gliptin, hold the sulfonurea and give moderate ISS. Qualifiers: Diabetes mellitus type: type 2 Diabetes mellitus terminal gauger insulin use: without retirement use Diabetes mellitus complication status: with hyperglycemia Qualified Code(s): E11.65 - Type 2 diabetes mellitus with hyperglycemia (4) Essential hypertension: Status: Chronic Assessment and plan: BP high right now but in the setting of actue pain. Continue outpaitent medication (5) Cough variant asthma: Status: Chronic Assessment and plan: I don't hear wheezing. Continue outpatient ICS/LABA. (6) Depressive disorder: Status: Chronic Assessment and plan: stable, continue outpatient medications (7) DVT prophylaxis: Status: Acute Assessment and plan: SCD on right leg. Defer pharmacology to surgeon. (8) Discharge planning issues: Status: Acute Assessment and plan: Stable on med surg status in the ICU History of Present Illness History of Present Illness Chief Complaint: fall, left knee pain Narrative: 77 yo F with history of chronic pain associated with history of poliomyelitis, well controlled type 2 diabetes mellitus, and recent left cataract surgery on 06/25/22 who presented to the emergency after slipping [place] and falling down an approximately 8 foot embankment at about 5pm on 06/29/22. She impacted on her left leg and immediately felt left knee pain after the fall and could not stand back up, and was fortunately found by her grandson after she didn't answer her phone. Pain is severe in her left knee, worse with any movement. the morphine did help. She denies other pain other than the hip pain that is chronic for her. Ms. Baldwin did not get dizzy or weak prior to falling, rather she just slipped. She has no chest pain. She denies headache or head trauma. She walked regular ly prior to this fall. Review of Systems Constitutional Constitutional: Denies anorexia, Denies chills, Denies fever(s), Reports lethargy and Denies weakness Eyes Eyes: Denies change in vision, Denies loss of vision and Denies eye pain ENT Ears, Nose, Mouth, and Throat: Denies dizziness, Denies nasal congestion, Denies nasal discharge and Denies sore throat Cardiovascular Cardiovascular: Denies chest pain, Denies syncope, Denies rapid heart rate, Denies lightheadedness, Denies palpitations and Denies dyspnea on exertion Respiratory Respiratory: Denies cough, Reports excessive phlegm production, Denies dyspnea on exertion and Denies wheezing Gastrointestinal Gastrointestinal: Denies abdominal pain, Denies melena, Denies hematochezia, Denies change in stool character, Denies heartburn and Denies vomiting Genitourinary Genitourinary: Denies hematuria, Denies dysuria and Reports urinary incontinence (not new) Integumentary/Breasts Skin/Breast: Denies rash and Denies skin ulcer Neurologic Neurologic: Denies dizziness, Denies syncope, Denies loss of vision, Denies sensory deficit and Denies weakness Psychiatric Psychiatric: Denies mood swings Endocrine Endocrine: Denies palpitations Hematologic/Lymphatic Hematologic/Lymphatic: Denies easy bleeding Allergic/Immunologic Allergic/Immunologic: Denies wheezing PFSH All Active Problems (Updated 06/30/22 @ 01:18 by Winston Perez) Discharge planning issues (Acute) DVT prophylaxis (Acute) Fracture of tibial plateau (Acute) Incisional hernia (Acute) Centimeters superior to the umbilicus from remote open [place] fundoplication. 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 No concerns for diversion. Depressive disorder (Chronic) Diabetes mellitus (Chronic 06/13/12) Essential hypertension (Chronic 01/19/13) Gastroesophageal reflux disease with esophagitis (Chronic) h/o esophageal stricture (dilated at [facility]) Insomnia (Chronic) Osteoarthritis (Chronic) Shoulder pain, bilateral (Chronic 02/14/07) right shoulder; MRI-DJD/rotator cuff Diabetic retinopathy (Chronic ~01/08/18) 01/08/18; ANDRIY; MILD B/L-kb 05/08/20: ANDRIY; MILD B/L-kb History of poliomyelitis (Chronic) Diabetic foot with normal protective sensation, peripheral vasculature, and bone structure (Acute) Sciatic nerve pain (Chronic) Right Conductive hearing loss, external ear (Chronic) Sensorineural hearing loss of both ears (Chronic) Thyroid lesion (Chronic) Atherosclerosis (Chronic) Knee pain, left (Chronic) Cough variant asthma (Chronic) Per [facility] Pulmonology 03/04/20 Fatigue (Chronic) Anxiety (Chronic) Dyspnea (Acute) Left lower quadrant abdominal pain (Acute) Hernia of anterior abdominal wall (Acute) containing fat and mesenteric vessel Medical History Advanced directives, counseling/discussion Chronic low back pain with left-sided sciatica (02/12/14) Post Polio Syndrome [facility] MRI 05/03 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 Uses Lidocaine patches and Hydrocodone 10-325 up to TID PRN. She continues to walk for exercise. Also uses 200g Gabapentin QD. Family hx-breast malignancy mother Fibrocystic disease of breast left breast bx Grief Loss of spouse 05/2019 Hyperplastic polyps of stomach 03/30/15;[facility] Impacted cerumen of both ears Surgical History Abdominal hysterectomy Appendectomy Biopsy of breast Bladder Surgery DILATION ESOPHAGEAL; MULTIPLE TIMES DISC SURGERY Reduction mammoplasty (~2001) Family History Brother Essential hypertension Brother No problems noted. Mother Essential hypertension Personal history of malignant neoplasm colon and throat Father Heart disease Sister Diabetes Essential hypertension Sister Essential hypertension Sister No problems noted. Maternal Aunts Personal history of malignant neoplasm Breast Cancer Other Family hx-breast malignancy Social History (Updated 06/30/22 @ 01:08 by Winston Perez) Smoking/Tobacco Use Status: Never Second Hand Exposure: Yes Smoking risk assessment performed?: Yes Alcohol Intake: never Drug use: Never Substance use type: does not use and painkillers Details: perscribed hydocodone Caregiver/Support person: No Household members: none Housing: other Details: Mobile Home Communication Needs: Hard of Hearing Do you need help understanding health information?: Never current occupation: CAREGIVER Pets and animals: Yes Pets and animals: cat(s) and dog(s) Sexually active: No Do you think of yourself as: straight/heterosexual Current gender identity: female What is your relationship status?: How often do you talk on the phone with friends or family?: three or more times per week How often do you get together with friends or relatives?: three or more times per week How often do you attend methodist or baptist services?: 4 or more times per year Do you belong to any clubs or organized social groups?: no Panel score (0-1 are the most socially isolated patients): 2 What type of physical activity do you participate in: walking Duration: 30-45 minutes/day Frequency: daily [place]ena/Orthodox: Mosque Special helena needs: Yes Seatbelt use: always Helmet use: No Drive intox or ride w/intox courtesy driver: No Do you feel safe at home: Yes Do you feel safe in your relationship?: Yes Additional Social history: Retired RN, 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 Plays several instruments. History History 5 Para 3 Hx # Term Pregnancies 3 Multiple births Hx # Pregnancies Ectopic pregnancies AB induced Hx Number of Living Children 3 AB spontaneous 2 Meds Allergies and Home Medications Allergies Allergy/AdvReac Type Severity Reaction Status Date / Time lidocaine Allergy Severe I pass Verified 06/29/22 20:16 out adhesive Allergy Intermediate Rash Verified 06/29/22 20:16 ampicillin Allergy Unknown Verified 06/29/22 20:16 cyclobenzaprine Allergy Unknown Verified 06/29/22 20:16 erythromycin base Allergy Unknown Verified 06/29/22 20:16 Penicillins Allergy Unknown Verified 06/29/22 20:16 Sulfa (Sulfonamide Allergy Unknown Verified 06/29/22 20:16 Antibiotics) levofloxacin AdvReac Severe VOMITING,DI Verified 06/29/22 20:16 ARRHEA metformin AdvReac Intermediate DIARRHEA Verified 06/29/22 20:16 pregabalin AdvReac Mild FATIGUE Verified 06/29/22 20:16 epinephrine AdvReac Unknown Verified 06/29/22 20:16 rofecoxib AdvReac Unknown Verified 06/29/22 20:16 Home Medications Medication Instructions Recorded Confirmed Type multivitamin (Daily Multi-Vitamin 1 ea PO DAILY 06/12/12 06/29/22 History tablet) omega-3 fatty acids-fish oil 684 1,000 mg PO HS 06/12/12 06/29/22 History mg-1,200 mg capsule,delayed release (One-Per-Day Greenleaf-3) Narcotic Contract 02/12/14 10/27/18 Clinic cholecalciferol (vitamin D3) 50 2,000 unit PO DAILY 05/10/15 06/29/22 History mcg (2,000 unit) tablet naloxone 4 mg/actuation nasal 4 mg NS PRN #2 sprays 12/24/16 06/29/22 Rx spray (Narcan) acetaminophen 500 mg tablet 500 mg PO TID PRN 11/25/17 06/29/22 History Hearing Aid Batteries (hearing aid #8 ea 06/05/21 06/08/22 Rx accessory) blood-glucose meter #1 ea 06/29/21 06/08/22 Rx pen needle, diabetic 32 gauge x #90 ea 03/23/22 06/08/22 Rx 5/32 (Microdot Insulin Pen Needle) albuterol sulfate 90 mcg/actuation 2 puff inhalation BID PRN 05/22/22 06/29/22 Rx aerosol inhaler shortness of breath or wheezing #8.5 grams blood sugar diagnostic #300 ea 05/22/22 06/08/22 Rx bupropion HCl 150 mg tablet,12 hr 150 mg PO BID #180 tabs 05/22/22 06/29/22 Rx sustained-release esomeprazole magnesium 40 mg 40 mg PO BID #180 caps 05/22/22 06/29/22 Rx capsule,delayed release fluticasone propionate 115 2 puff inhalation BID #8 grams 05/22/22 06/29/22 Rx mcg-salmeterol 21 mcg/actuation HFA inhaler (Advair HFA) gabapentin 100 mg capsule 200 mg PO HS #180 caps 05/22/22 06/29/22 Rx glimepiride 2 mg tablet 2 mg PO QPM #90 tabs 05/22/22 06/29/22 Rx hydrocodone 10 mg-acetaminophen 1 tab PO BID PRN backpain #60 tabs 05/22/22 06/29/22 Rx 325 mg tablet insulin glargine 100 unit/mL (3 30 - 40 unit (0.3 - 0.4 mL) subcut 05/22/22 06/29/22 Rx mL) subcutaneous pen (Lantus DAILY DM E11.9 Daily Insulin Solostar U-100 Insulin) Injection 30 days #15 mL lancets 33 gauge ([employer] #300 ea 05/22/22 06/08/22 Rx Lancets) lidocaine 5 % topical patch 1 patch topical DAILY low back 05/22/22 06/29/22 Rx pain #10 ea linagliptin 5 mg tablet (Tradjenta) 5 mg PO DAILY #90 tabs 05/22/22 06/29/22 Rx lisinopril 10 1 tab PO DAILY #90 tabs 05/22/22 06/29/22 Rx mg-hydrochlorothiazide 12.5 mg tablet montelukast 10 mg tablet 10 mg PO DAILY #90 tabs 05/22/22 06/29/22 Rx psyllium husk (aspartame) 3.4 5.8 g PO DAILY #1,040 grams 05/24/22 06/29/22 Rx gram/5.8 gram oral powder (Metamucil Sugar-Free (aspartame)) lorazepam 0.5 mg tablet 0.25 mg PO HS PRN anxiety #15 tabs 06/08/22 06/29/22 Rx Exam Narrative Exam Narrative: GEN: Alert and oriented x 3, pleasant and cooperative, gives fluent and linear history. No acute distress at rest unless moving left leg HEENT: Head atraumatic. Conjunctiva clear, no icterus. PEERL, EOMI. no rhinorrhea. MMM, OP benign. Neck is supple with no masses or lymphadenopathy, trachea midline LUNGS: CTAB with normal effort CV: RRR with no murmurs, gallops, or rubs. ABD: +BS, soft. Mild left sided tenderness (not new) EXT: no cyanosis, clubbing, or edema. some tense swelling left lower leg, but warm and good pulses distally MSK: No joint redness or swelling (except left knee in brace). NEURO: CN 2-12 grossly intact. Normal movement of 4 extremities. Normal speech and coordination SKIN: No rashes or open wounds. PSYCH: normal mood and affect Results Imaging Chest x-ray: report reviewed (No acute disease) EKG: report reviewed and image reviewed (NSR, normal axis, intervals, no ischemic ST-T abnormalities) Imaging Studies: CT LLE: Proximal tibia and fibular fractures with associated hemarthrosis.? Findings suggesting 11 mm bone fragment partially embedded in the lateral femoral condyle Labs 06/29/22 22:30 06/29/22 22:30 Labs: Laboratory Results - last 24 hr 06/29/22 06/29/22 06/29/22 22:30 22:30 22:30 WBC 20.26 H RBC 3.95 Hgb 12.3 Hct 35.0 L MCV 89 MCH 31.1 MCHC 35.1 RDW 12.3 Plt Count 198 MPV 10.8 PT 10.8 INR 1.1 APTT 27.0 Sodium 133 L Potassium 3.7 Chloride 98 Carbon Dioxide 28.0 Anion Gap 7.0 BUN 15 Creatinine 0.8 Est GFR (CKD-EPI 2020) 74.90 Glucose 165 H Hemoglobin A1c Calcium 9.4 Total Bilirubin 0.2 AST 17 ALT 26 Alkaline Phosphatase 76 Total Protein 6.7 Albumin 3.4 COVID-19 Source SARS-CoV-2 (PCR) Add-On Test Request 06/29/22 06/29/22 06/29/22 22:30 22:30 22:35 WBC RBC Hgb Hct MCV MCH MCHC RDW Plt Count MPV PT INR APTT Sodium Potassium Chloride Carbon Dioxide Anion Gap BUN Creatinine Est GFR (CKD-EPI 2020) Glucose Hemoglobin A1c 7.1 H Calcium Total Bilirubin AST ALT Alkaline Phosphatase Total Protein Albumin COVID-19 Source Nasal/Nares SARS-CoV-2 (PCR) Negative Add-On Test Request DONE Last Vital Signs Temp 36.6 C 06/30/22 00:17 Pulse 79 06/30/22 00:21 Resp 12 06/30/22 00:17 BP 172/121 H 06/30/22 00:21 Pulse Ox 97 06/30/22 00:21 Time Spent Time spent with Patient: 55-74 minutes Time was spent: preparing to see the patient(eg.review tests), obtaining and/or reviewing separately otained hiistory, ordering medications,tests, procedures, referring, communicating with other health clinical care manager, indepentently interpreting results and counseling the patient
[2022-06-30] MEDS: MORPHine 2 MG/ML SYR IVP ×2 (03:27→05:23)
[2022-06-30] MEDS: LORazepam 0.5 MG TAB 0.25 MG PO (03:28)
[2022-06-30] MEDS: Normal Saline Flush 10 ML SYR ×5 (03:49→21:31)
[2022-06-30 05:52] LABS: Abs Immature Grans 0.05 10^3/uL (0.0-0.06); HCT 33.4 % (36.0-46.0); HGB 11.5 g/dL (11.2-15.7); MCH 30.7 pg (27.0-33.0); MCHC 34.4 % (32.0-36.0); MCV 89 fL (80-95); MPV 11.2 fL (8.0-11.0); Platelet Count 182 10^3/uL (130-400); RBC 3.74 10^6/uL (3.93-5.22); RDW 12.5 % (11.7-14.6); RDW-SD 40.7 fL; WBC 14.67 10^3/uL (4.4-10.8)
[2022-06-30 06:19] LABS: Anion Gap 6.1 mmol/L (3-11); BUN 16 mg/dL (7-18); CO2 29.9 mmol/L (21.0-32.0); CREATININE 0.9 mg/dL (0.55-1.02); Calcium 9.3 mg/dL (8.5-10.1); Chloride 97 mmol/L (98-107); Estimated GFR 65.03 (mL/min/1.73m2); Glucose 186 mg/dL (74-106); Potassium 4.3 mmol/L (3.5-5.1); Sodium 133 mmol/L (136-145)
[2022-06-30 06:24] LABS: Absolute Lymphocyte Count 0.73 10^3/uL (1.2-3.4); Absolute Monocyte Count 0.88 10^3/uL (0.1-0.8); Absolute Neutrophil Count 12.91 10^3/uL (1.2-6.7)
[2022-06-30 06:25] LABS: Absolute Eosinophil Count 0.15 10^3/uL (0.0-0.7)
--- NOTE | 2022-06-30 07:01 | OCONE_ITS ---
Date of service: 06/30/22 Time of Service: 06:45 History of Present Illness History of Present Illness Chief Complaint: Left Leg Fracture Narrative: Sandra is a 77-year-old who was disposing of some brush over an embankment when she lost her balance and fell landing onto her left leg awkwardly. She was down the embankment was unable to mobilize or get her self out. Fortunately, her grandson came by to check on her and found her down the embankment. She had immediate pain and swelling about the left leg which prevented any mobilization. She is brought to the emergency department and diagnosed with a comminuted tibial plateau fracture. Given her other many medical issues she was admitted to the hospital service and further imaging was performed overnight. When I saw her early in the morning she had notable pain. She was placed in a knee immobilizer although it was down at the level of the leg. She denied any acute numbness or tingling. However, she did have pain within the knee and within the proximal aspect of the calf posteriorly. She denied any head trauma. No loss of consciousness. She reports no chest pain or shortness of breath. She has found that the current pain regimen is not covering her pain. She is on hydrocodone twice daily at baseline for various pain complaints including history of chronic poliomyelitis. She denies any premorbid issues with this left knee. She is otherwise independent and active. Consults Consult date: 06/30/22 Requesting physician: Winston Perez Consult Reason Left tibial plateau fracture Assessment and Plan Assessment and plan (1) Displaced bicondylar fracture of left tibia, initial encounter for closed fracture: Status: Acute Assessment and plan: Sandra is a 77-year-old female who suffered a fall resulting in a displaced bicondylar tibial plateau fracture on the left side, Schatzker 6. CT scan shows significantly more comminution and extension of the fracture than what was i nitially appreciated on the x-rays. Additionally, she is much more swollen this morning than what was reported last night and has increasing pain. While she does have notable swelling and fullness about the leg she is able to tolerate passive range of motion and does not have any other signs of compartment syndrome, although, this is concerning given the severity of the fracture. Given these findings, I recommend that we proceed relatively quickly with external fixation of the left leg. This would stabilize the fracture, reduce the overall alignment of the left leg and hopefully increase stability which should decrease pain and decrease swelling. Given the complexity of the fracture pattern and her increasing swelling I do think referral to tertiary center will be required. I discussed this with Farnaz at length. She understands the complexities of the case and the need to proceed with something to stabilize the left leg as she is in significant pain. I reviewed external fixation with her. I discussed some the risk to include bleeding, infection, pain, damage nerves and vessels, damage to muscle and tendons, blood clot. This would also be a temporizing procedure with a more definitive procedure performed in the near future once swelling has subsided. All of her questions were answered. She agrees to proceed. I also called her daughter, Nancy, to discuss this as well. Review of Systems All systems reviewed & are unremarkable except as noted in HPI and below PFSH All Active Problems (Updated 06/30/22 @ 07:43 by Pedro Pablo Stein MD) Displaced bicondylar fracture of left tibia, initial encounter for closed fracture (Acute) Discharge planning issues (Acute) DVT prophylaxis (Acute) Fracture of tibial plateau (Acute) Incisional hernia (Acute) Centimeters superior to the umbilicus from remote open [place] fundoplication. 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 No concerns for diversion. Depressive disorder (Chronic) Diabetes mellitus (Chronic 06/13/12) Essential hypertension (Chronic 01/19/13) Gastroesophageal reflux disease with esophagitis (Chronic) h/o esophageal stricture ([place] [facility] Insomnia (Chronic) Osteoarthritis (Chronic) Shoulder pain, bilateral (Chronic 02/14/07) right shoulder; MRI-DJD/rotator cuff Diabetic retinopathy (Chronic ~01/08/18) 01/08/18; ANDRIY; MILD B/L-kb 05/08/20: ANDRIY; MILD B/L-kb History of poliomyelitis (Chronic) Diabetic foot with normal protective sensation, peripheral vasculature, and bone structure (Acute) Sciatic nerve pain (Chronic) Right Conductive hearing loss, external ear (Chronic) Sensorineural hearing loss of both ears (Chronic) Thyroid lesion (Chronic) Atherosclerosis (Chronic) Knee pain, left (Chronic) Cough variant asthma (Chronic) Per [facility] [place] 03/04/20 Fatigue (Chronic) Anxiety (Chronic) Dyspnea (Acute) Left lower quadrant abdominal pain (Acute) Hernia of anterior abdominal wall (Acute) containing fat and mesenteric vessel Medical History Advanced directives, counseling/discussion Chronic low back pain with left-sided sciatica (02/12/14) Post Polio Syndrome [facility] [place] 05/03 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 Uses Lidocaine patches and Hydrocodone 10-325 up to TID PRN. She continues to walk for exercise. Also uses 200g Gabapentin QD. Family hx-breast malignancy mother Fibrocystic disease of breast left breast bx Grief Loss of spouse 05/2019 Hyperplastic polyps of stomach [place]30/[place] Impacted cerumen of both ears Surgical History Abdominal hysterectomy Appendectomy Biopsy of breast Bladder Surgery DILATION ESOPHAGEAL; MULTIPLE TIMES DISC SURGERY Reduction mammoplasty (~2001) Family History Brother Essential hypertension Brother No problems noted. Mother Essential hypertension Personal history of malignant neoplasm colon and throat Father Heart disease Sister Diabetes Essential hypertension Sister Essential hypertension Sister No problems noted. Maternal Aunts Personal history of malignant neoplasm Breast Cancer Other Family hx-breast malignancy Social History Smoking/Tobacco Use Status: Never Second Hand Exposure: Yes Smoking risk assessment performed?: Yes Alcohol Intake: never Drug use: Never Substance use type: does not use and painkillers Details: perscribed hydocodone Caregiver/Support person: No Household members: none Housing: other Details: Mobile Home Communication Needs: Hard of Hearing Do you need help understanding health information?: Never current occupation: CAREGIVER Pets and animals: Yes Pets and animals: cat(s) and dog(s) Sexually active: No Do you think of yourself as: straight/heterosexual Current gender identity: female What is your relationship status?: How often do you talk on the phone with friends or family?: three or more times per week How often do you get together with friends or relatives?: three or more times per week How often do you attend shinto or lutheran services?: 4 or more times per year Do you belong to any clubs or organized social groups?: no Panel score (0-1 are the most socially isolated patients): 2 What type of physical activity do you participate in: walking Duration: 30-45 minutes/day Frequency: daily Helena/Yazdanism: Restoration Special helena needs: Yes Seatbelt use: always Helmet use: No Drive intox or ride w/intox straight truck driver: No Do you feel safe at home: Yes Do you feel safe in your relationship?: Yes Additional Social history: Retired RN, 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 Plays several instruments. History History 5 Para 3 Hx # Term Pregnancies 3 Multiple births Hx # Pregnancies Ectopic pregnancies AB induced Hx Number of Living Children 3 AB spontaneous 2 Exam Narrative Exam Narrative: Laying in a semisupine position in the bed. Head is normocephalic and atraumatic. Alert and oriented x3. Evaluation of the left lower extremity shows notable swelling around the leg and the knee. There is a palpable and large effusion. There is pain to palpation about the knee joint and the proximal tibia as well as the proximal aspect the calf. The entire leg is swollen. However, there are wrinkles and the co mpartments are compressible. However, she does have pain with compression and direct pressure to palpation of the leg, particularly the posterior compartments. She is able to actively demonstrate some ankle dorsiflexion, ankle plantarflexion, great toe extension and great toe flexion. Passively she tolerates passive great toe extension and flexion without any significant increase in pain. She does have some pain with passive dorsiflexion although is able to tolerate 20 to 30 degrees from her resting equinus position without significant increase in pain. Sensation intact light touch over the deep and superficial peroneal nerve and tibial nerve. Palpable DP and PT pulse. No pain with palpation proximally about the left thigh. Brief evaluation of the right lower extremity shows no gross deformity. No pain with passive range of motion of the right hip, knee, ankle, or foot. Sensation intact light touch over the deep and superficial peroneal nerve and tibial nerve. Results Last Vital Signs Temp 36.2 C L 06/30/22 03:34 Pulse 76 06/30/22 06:01 Resp 12 06/30/22 00:17 BP 149/51 H 06/30/22 06:01 Pulse Ox 94 06/30/22 06:01 Labs 06/30/22 05:34 06/30/22 05:34 Labs: Laboratory Results - last 24 hr 06/29/22 06/29/22 06/29/22 22:30 22:30 22:30 WBC 20.26 H RBC 3.95 Hgb 12.3 Hct 35.0 L MCV 89 MCH 31.1 MCHC 35.1 RDW 12.3 Plt Count 198 MPV 10.8 Immature Gran % Neutrophils % Lymphocytes % Monocytes % Eosinophils % Basophils % Nucleated RBC % Absolute Neutrophils Absolute Lymphocytes Absolute Monocytes Absolute Eosinophils Absolute Basophils PT 10.8 INR 1.1 APTT 27.0 Sodium 133 L Potassium 3.7 Chloride 98 Carbon Dioxide 28.0 Anion Gap 7.0 BUN 15 Creatinine 0.8 Est GFR (CKD-EPI 2020) 74.90 Glucose 165 H Hemoglobin A1c Calcium 9.4 Total Bilirubin 0.2 AST 17 ALT 26 Alkaline Phosphatase 76 Total Protein 6.7 Albumin 3.4 COVID-19 Source SARS-CoV-2 (PCR) Add-On Test Request 06/29/22 06/29/22 06/29/22 22:30 22:30 22:35 WBC RBC Hgb Hct MCV MCH MCHC RDW Plt Count MPV Immature Gran % Neutrophils % Lymphocytes % Monocytes % Eosinophils % Basophils % Nucleated RBC % Absolute Neutrophils Absolute Lymphocytes Absolute Monocytes Absolute Eosinophils Absolute Basophils PT INR APTT Sodium Potassium Chloride Carbon Dioxide Anion Gap BUN Creatinine Est GFR (CKD-EPI 2020) Glucose Hemoglobin A1c 7.1 H Calcium Total Bilirubin AST ALT Alkaline Phosphatase Total Protein Albumin COVID-19 Source Nasal/Nares SARS-CoV-2 (PCR) Negative Add-On Test Request DONE 06/30/22 06/30/22 05:34 05:34 WBC 14.67 H RBC 3.74 L Hgb 11.5 Hct 33.4 L MCV 89 MCH 30.7 MCHC 34.4 RDW 12.5 Plt Count 182 MPV 11.2 H Immature Gran % 0.0 Neutrophils % 88.0 Lymphocytes % 5.0 Monocytes % 6.0 Eosinophils % 1.0 Basophils % 0.0 Nucleated RBC % 0.0 Absolute Neutrophils 12.91 H Absolute Lymphocytes 0.73 L Absolute Monocytes 0.88 H Absolute Eosinophils 0.15 Absolute Basophils 0.00 PT INR APTT Sodium 133 L Potassium 4.3 Chloride 97 L Carbon Dioxide 29.9 Anion Gap 6.1 BUN 16 Creatinine 0.9 Est GFR (CKD-EPI 2020) 65.03 Glucose 186 H Hemoglobin A1c Calcium 9.3 Total Bilirubin AST ALT Alkaline Phosphatase Total Protein Albumin COVID-19 Source SARS-CoV-2 (PCR) Add-On Test Request Imaging Imaging Studies: X-ray of the left knee and tib-fib was reviewed. This demonstrates a comminuted fracture which appears to involve primarily the lateral aspect tibial plateau as well as a fibular neck fracture. CT scan with 3D reconstructions demonstrates a comminuted fracture about the left proximal tibia with a large split depression type deformity of the lateral compartment. The splint is biased anterior laterally with good congruity of the proximal tib-fib joint. There is a slightly compressed fracture through the neck of the fibula without any major displacement. There is notable comminution of the lateral tibial plateau. There is articular segments depressed within the tibia approximately 3 cm. There is notable comminution posteriorly of the lateral compartment. What is appreciable on the CT scan is extension of the fracture into the medial compartment crossing through the tibial spine and exiting in the posterior medial aspect of the joint surface with mild step-off of about 1 mm from a coronal split exiting the posterior half of the medial compartment. There also appears to be a nondisplaced transverse fracture line e xtending through the medial metaphysis. This makes it a Schatzker 6 fracture.
--- NOTE | 2022-06-30 07:07 | ANES.PREOP_ITS ---
General Info Date of Service Date Performed: 06/30/22 Height: 5 ft 2 in Weight: 62.9 kg Body Mass Index (BMI): 25.3 Meds Allergies and Home Medications Allergies Allergy/AdvReac Type Severity Reaction Status Date / Time lidocaine Allergy Severe I pass Verified 06/29/22 20:16 out adhesive Allergy Intermediate Rash Verified 06/29/22 20:16 ampicillin Allergy Unknown Verified 06/29/22 20:16 cyclobenzaprine Allergy Unknown Verified 06/29/22 20:16 erythromycin base Allergy Unknown Verified 06/29/22 20:16 Penicillins Allergy Unknown Verified 06/29/22 20:16 Sulfa (Sulfonamide Allergy Unknown Verified 06/29/22 20:16 Antibiotics) levofloxacin AdvReac Severe VOMITING,DI Verified 06/29/22 20:16 ARRHEA metformin AdvReac Intermediate DIARRHEA Verified 06/29/22 20:16 pregabalin AdvReac Mild FATIGUE Verified 06/29/22 20:16 epinephrine AdvReac Unknown Verified 06/29/22 20:16 rofecoxib AdvReac Unknown Verified 06/29/22 20:16 Home Medication Medication Instructions Recorded multivitamin (Daily Multi-Vitamin 1 ea PO DAILY 06/12/12 tablet) omega-3 fatty acids-fish oil 684 1,000 mg PO HS 06/12/12 mg-1,200 mg capsule,delayed release (One-Per-Day [place]-3) cholecalciferol (vitamin D3) 50 2,000 unit PO DAILY 05/10/15 mcg (2,000 unit) tablet naloxone 4 mg/actuation nasal 4 mg NS PRN #2 sprays 12/24/16 spray (Narcan) acetaminophen 500 mg tablet 500 mg PO TID PRN 11/25/17 Hearing Aid Batteries (hearing aid #8 ea 06/05/21 accessory) blood-glucose meter #1 ea 06/29/21 pen needle, diabetic 32 gauge x #90 ea 03/23/22 (Microdot Insulin Pen Needle) albuterol sulfate 90 mcg/actuation 2 puff inhalation BID PRN 05/22/22 aerosol inhaler shortness of breath or wheezing #8.5 grams blood sugar diagnostic #300 ea 05/22/22 bupropion HCl 150 mg tablet,12 hr 150 mg PO BID #180 tabs 05/22/22 sustained-release esomeprazole magnesium 40 mg 40 mg PO BID #180 caps 05/22/22 capsule,delayed release fluticasone propionate 115 2 puff inhalation BID #8 grams 05/22/22 mcg-salmeterol 21 mcg/actuation HFA inhaler (Advair HFA) gabapentin 100 mg capsule 200 mg PO HS #180 caps 05/22/22 glimepiride 2 mg tablet 2 mg PO QPM #90 tabs 05/22/22 hydrocodone 10 mg-acetaminophen 1 tab PO BID PRN backpain #60 tabs 05/22/22 325 mg tablet insulin glargine 100 unit/mL (3 30 - 40 unit (0.3 - 0.4 mL) subcut 05/22/22 mL) subcutaneous pen (Lantus DAILY DM E11.9 Daily Insulin Solostar U-100 Insulin) Injection 30 days #15 mL lancets 33 gauge ([employer] #300 ea 05/22/22 Lancets) lidocaine 5 % topical patch 1 patch topical DAILY low back 05/22/22 pain #10 ea linagliptin 5 mg tablet (Tradjenta) 5 mg PO DAILY #90 tabs 05/22/22 lisinopril 10 1 tab PO DAILY #90 tabs 05/22/22 mg-hydrochlorothiazide 12.5 mg tablet montelukast 10 mg tablet 10 mg PO DAILY #90 tabs 05/22/22 psyllium husk (aspartame) 3.4 5.8 g PO DAILY #1,040 grams 05/24/22 gram/5.8 gram oral powder (Metamucil Sugar-Free (aspartame)) lorazepam 0.5 mg tablet 0.25 mg PO HS PRN anxiety #15 tabs 06/08/22 Current Visit Medications: Current Medications Generic Name Dose Route Start Last Admin Trade Name Freq PRN Reason Stop Dose Admin Acetaminophen 325 - 650 mg 06/30/22 00:38 Acetaminophen 325 Mg Tab PO Q4H PRN PRN Hydrocodone Bitart/Acetaminophen 1 tab 06/30/22 07:06 Hydrocodone 10/Acetaminophen 325 Tab PO BID PRN PRN backpain Hydrocodone Bitart/Acetaminophen 1 tab 06/30/22 04:47 06/30/22 05:24 Hydrocodone 7.5/Acetaminophen 325 Tab PO 1 tab Q4H PRN PRN Administration Pain Albuterol Sulfate 2 puff 06/30/22 00:42 Albuterol Hfa 8 Gm 60 Puff Inh IH BID PRN PRN shortness of breath or wheezing Budesonide/Formoterol Fumarate 2 puff 06/30/22 08:30 Budesonide/Formoterol 160/4.5 6 Gm 60 Puff Inh IH BID [facility] Bupropion HCl 150 mg 06/30/22 08:30 Bupropion-Cr 150 Mg Tabcr PO BID [facility] Cholecalciferol 2,000 units 06/30/22 08:30 Cholecalciferol (Vitamin D3) 1,000 Unit Tab PO DAILY [facility] Device 1 each 06/30/22 01:00 Inhaler, Assist Device MC DIRECTED VICKI Dextrose 0 gm 06/30/22 00:46 Glucose Oral Gel 15 Gm/37.5 Gm Tube PO DIRECTED PRN Dextrose/Water 0 gm 06/30/22 00:46 Dextrose 50%-Water 25 Gm/50 Ml Syr IVP DIRECTED PRN Dimethicone/Zinc Oxide 0 gm 06/30/22 00:38 Teri Protect Cream 142 Gm Tube TP PRN PRN Docusate Sodium 100 mg 06/30/22 00:38 Docusate Sodium 100 Mg Cap PO TID PRN PRN Esomeprazole Magnesium 40 mg 06/30/22 08:30 Esomeprazole 40 Mg Capcr PO BID [facility] Gabapentin 200 mg 06/30/22 22:00 Gabapentin 100 Mg Cap PO HS [facility] Hydrochlorothiazide 12.5 mg 06/30/22 08:30 Hydrochlorothiazide 12.5 Mg Tab PO DAILY [facility] Insulin Aspart 0 - 18 units 06/30/22 08:00 Insulin Aspart 300 Units/3 Ml Pen SC 0800,1200,1700 [facility] Protocol Insulin Glargine 34 units 06/30/22 08:30 Insulin Glargine 300 Units/3 Ml Pen SC DAILY [facility] Lidocaine 1 patch 06/30/22 08:30 Lidocaine 5% Patch TP DAILY [facility] Lisinopril 10 mg 06/30/22 08:30 Lisinopril 10 Mg Tab PO DAILY [facility] Lorazepam 0.25 mg 06/30/22 00:42 06/30/22 03:28 Lorazepam 0.5 Mg Tab PO 0.25 mg HS PRN PRN Administration anxiety Miscellaneous 1 each 06/30/22 20:00 Patch Removal TP QPM [facility] Montelukast Sodium 10 mg 06/30/22 08:30 Montelukast 10 Mg Tab PO DAILY [facility] Morphine Sulfate 2 mg 06/30/22 01:12 06/30/22 05:23 Morphine 2 Mg/Ml Syr IVP 2 mg Q2H PRN PRN Administration Non-Formulary Medication 5 mg 06/30/22 08:30 Linagliptin [Tradjenta] PO DAILY [facility] Polyethylene Glycol 17 gm 06/30/22 00:38 Polyethylene Glycol 3350 17 Gm Packet PO DAILY PRN PRN Constipation Psyllium Hydrophilic Mucilloid 0.5 each 06/30/22 08:30 Psyllium Pkt PO DAILY [facility] PFSH Active Problems Active Problems: Problem Status Onset Code Discharge planning issues Z02.9 DVT prophylaxis Z29.9 Fracture of tibial plateau S82.143A Posterior subcapsular age-related cataract of left eye H25.042 Nuclear age-related cataract, left eye H25.12 Incisional hernia K43.2 Family history of colon cancer in mother Z80.0 Fecal incontinence R15.9 Diverticular disease of large intestine K57.30 Chronic pain G89.29 Depressive disorder F32.9 Diabetes mellitus 06/13/12 E11.9 Essential hypertension 01/19/13 I10 Gastroesophageal reflux disease with esophagitis K21.0 Insomnia G47.00 Osteoarthritis M19.90 Shoulder pain, bilateral 02/14/07 M25.511, M25.512 Diabetic retinopathy ~18 E11.319 History of poliomyelitis Z86.12 Diabetic foot with normal protective sensation, peripheral vasculature, and bone structure Z91.89 Sciatic nerve pain M54.30 Conductive hearing loss, external ear H90.2 Sensorineural hearing loss of both ears H90.3 Thyroid lesion E07.89 Atherosclerosis I70.90 Knee pain, left M25.562 Cough variant asthma J45.991 Fatigue R53.83 Anxiety F41.9 Dyspnea R06.00 Left lower quadrant abdominal pain R10.32 Hernia of anterior abdominal wall K43.9 Medical History Medical History Advanced directives, counseling/discussion Chronic low back pain with left-sided sciatica (02/12/14) Post [place] [facility] [place] 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 Uses Lidocaine patches and Hydrocodone 10-325 up to TID PRN. She continues to walk for exercise. Also uses 200g Gabapentin QD. Family hx-breast malignancy mother Fibrocystic disease of breast left breast bx Grief Loss of spouse 05/2019 [place] [place] of both [place] Medical History Comments:: 06/25/22 repeat BP 176/70 06/25/22 pt reports she passed out previously after having anesthesai with dental surgery Surgical History Surgical History Abdominal hysterectomy Appendectomy Biopsy of breast Bladder Surgery DILATION ESOPHAGEAL; MULTIPLE TIMES DISC SURGERY Reduction mammoplasty (~2001) Tobacco Smoking/Tobacco Use Status: Never Passive smoking exposure: Yes Second hand exposure: Yes Alcohol Alcohol Intake: never Substance Use Substance use: Never Substance use type: does not use and painkillers Details: perscribed hydocodone Prental History History 5 Para 3 Hx # Term Pregnancies 3 Multiple births Hx # Pregnancies Ectopic pregnancies AB induced Hx Number of Living Children 3 AB spontaneous 2 Vital Signs and Lab Results Vital Signs Most Recent Vital Signs in EMR: Most Recent Vital Signs Temp Pulse Resp BP Pulse Ox 36.2 C L 76 12 149/51 H 96 06/30/22 03:34 06/30/22 06:01 06/30/22 00:17 06/30/22 06:01 06/30/22 07:00 Point of Care Results Point of Care Results: Finger Stick Blood Glucose 144 06/29/22 22:02 Lab Results 06/30/22 05:34 06/30/22 05:34 Blood Type / Crossmatch: No Data to Display Complete Blood Count: White Blood Count 14.67 10^3/uL (4.4-10.8) H 06/30/22 05:34 Red Blood Count 3.74 10^6/uL (3.93-5.22) L 06/30/22 05:34 Hemoglobin 11.5 g/dL (11.2-15.7) 06/30/22 05:34 Hematocrit 33.4 % (36.0-46.0) L 06/30/22 05:34 Platelet Count 182 10^3/uL (130-400) 06/30/22 05:34 Complete Metabolic Panel: Sodium 133 mmol/L (136-145) L 06/30/22 05:34 Potassium 4.3 mmol/L (3.5-5.1) 06/30/22 05:34 Chloride 97 mmol/L (98-107) L 06/30/22 05:34 Carbon Dioxide 29.9 mmol/L (21.0-32.0) 06/30/22 05:34 BUN 16 mg/dL (7-18) 06/30/22 05:34 Creatinine 0.9 mg/dL (0.55-1.02) 06/30/22 05:34 Est GFR (CKD-EPI 2020) 65.03 (mL/min/1.73m2) 06/30/22 05:34 Calcium 9.3 mg/dL (8.5-10.1) 06/30/22 05:34 Albumin 3.4 g/dL (3.4-5.0) 06/29/22 22:30 Glucose 186 mg/dL (74-106) H 06/30/22 05:34 Hemoglobin A1c 7.1 % (<5.7) H 06/29/22 22:30 Liver Function Panel: Alanine Aminotransferase (ALT/SGPT) 26 U/L (14-59) 06/29/22 22: 30 Aspartate Amino Transf (AST/SGOT) 17 U/L (15-37) 06/29/22 22:30 Coagulation Panel: INR International Normalized Ratio 1.1 (0.9-1.1) 06/29/22 22:3 0 Prothrombin Time 10.8 sec (9.3-11.0) 06/29/22 22:30 Activated Partial Thromboplast Time 27.0 sec (21.5-31.9) 22:30 Cardiac Panel: No Data to Display Arterial Blood Gas: No Data to Display Venous Blood Gas: No Data to Display Pancreas Panel: No Data to Display Thyroid Panel: No Data to Display Infectious Disease: Coronavirus (COVID-19)(PCR) Negative (Negative) 06/29/22 22:35 Coronavirus 2019 Source Nasal/Nares 06/29/22 22:35 Blood Cultures: No Data to Display Toxicology Panel: No Data to Display Imaging and Studies Imaging and Studies Study information below may be from another EMR and interpreted by another provider. Please see original notes in EMR for more complete details. EKG Summary: Conclusion Sinus rhythm...normal P axis, V-rate 60- 99 02/10/22 Stress Test Summary: MPI Conclusion The ejection fraction was 77% with stress. There were no wall motion abnormalities. There is no evidence of ischemia on the imaging portion of the exam. This represents a normal SPECT stress test. 10/30/19 Echocardiogram Summary: Conclusion Left Ventricle : The left ventricle is normal size. The left ventricular systolic function is normal. The left ventricular ejection fraction is within the normal range. There is normal left ventricular wall thickness. There is normal LV segmental wall motion. The left ventricular diastolic function is normal. LVEF is 60-65%. Right Ventricle : The right ventricle is normal size. The right ventricular systolic function is normal. The RVSP is 19.2mmHg. Atria: Both atria normal in size. Valves: There are no hemodynamically significant valvular lesions. Great Vessels : The aortic root is normal in size. The ascending aorta is mildly dilated. IVC is normal in size and collapses >50% with inspiration. 11/03/19 Anesthesia Assessment and Plan Anesthesia History Personal History: No History of Anesthesia Complications Family History: No Family History of Anesthesia Complications Exercise Tolerance Exercise Tolerance: Metabolic Equivalents>4 Cardiac & Pulmonary Exam Cardiac Exam: Normal S1/S2 Heart Sounds Pulmonary Exam: Clear Bilateral Breath Sounds Implantable Cardiac Device Does patient have a Pacemaker or an ICD?: No Airway Exam Known Difficult Airway: No Mallampati Class: 3 Mouth Opening: Narrow (< 3cm) Thyromental Distance: Less than 3 cm Neck Range of Motion: Limited ROM Neck Circumference: Normal Teeth Condition: Normal Dentition ASA Classification ASA Score: ASA 2 Emergency Case?: Yes NPO Status NPO Status: NPO Clears >2 hours, Solids >8 hours Anesthesia Plan Resuscitation Status: Full Code Anesthesia Technique: General Anesthesia Airway Planned: Endotracheal Tube Monitors Used: Standard Monitors Preoperative Comments:: 77 yo female for ex fix with tib fracture. Sig PMHx: HTN, DM, GERD, back pain (chronic pain med), anxiety, chronic cough/phlem. Given significant discomfort with rolling, sitting up will do GA.
--- NOTE | 2022-06-30 07:19 | NUR.NOTE ---
Nursing Note: Accessed chart to determine orders for EKG and to determine whether or not one needs to be cancelled.
[2022-06-30] MEDS: ceFAZolin 2 GM/50 ML BAG IVPB (07:50)
[2022-06-30] MEDS: Normal Saline 1,000 ML 100 ML IV (07:51)
[2022-06-30] MEDS: Budesonide/Formoterol 160/4.5 6 GM 60 PUFF INH IH ×2 (07:57→21:33)
[2022-06-30] MEDS: Insulin Aspart 300 UNITS/3 ML PEN SC ×2 (08:19→17:21)
[2022-06-30] MEDS: Montelukast 10 MG TAB PO (08:23)
[2022-06-30] MEDS: Esomeprazole 40 MG CAPCR PO ×2 (08:23→21:33)
--- NOTE | 2022-06-30 10:07 | IN_ITS ---
PT Notes Visit Reasons: Left Tibial Plateau Fx Inpatient Physical Therapy Evaluation Date: [] Referring Doctor: [] PT Orders: PT CONSULT: [] Precautions: [] Patient Profile/Admitting Diagnosis: [] PMHX: []All Active Problems?(Updated 06/30/22 @ 07:43 by Pedro Pablo Stein MD) Displaced bicondylar fracture of left tibia, initial encounter for closed fracture (Acute) Discharge planning issues (Acute) DVT prophylaxis (Acute) Fracture of tibial plateau (Acute) Incisional hernia (Acute) Centimeters superior to the umbilicus from remote open [place] fundoplication.Family history of colon cancer in mother (Acute) She was told she only needed colonoscopy every 10 years by [facility] incontinence (Acute) Diverticular disease of large intestine (Acute) Chronic pain (Chronic) 08/26/13 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 No concerns for diversion. Depressive disorder (Chronic) Diabetes mellitus (Chronic 06/13/12) Essential hypertension (Chronic 01/19/13) Gastroesophageal reflux disease with esophagitis (Chronic) h/o esophageal stricture (dilated [place] [facility] [place] Insomnia (Chronic) Osteoarthritis (Chronic) Shoulder pain, bilateral (Chronic 02/14/07) right shoulder; MRI-DJD/rotator cuff Diabetic retinopathy (Chronic ~01/08/18) 01/08/18; [place]; MILD B/L-kb 05/08/20: [facility]; MILD B/L-kb History of poliomyelitis (Chronic) Diabetic foot with normal protective sensation, peripheral vasculature, and bone structure (Acute) Sciatic nerve pain (Chronic) RightConductive hearing loss, external ear (Chronic) Sensorineural hearing loss of both ears (Chronic) Thyroid lesion (Chronic) Atherosclerosis (Chronic) Knee pain, left (Chronic) Cough variant asthma (Chronic) Per [facility] Pulmonology 03/04/20Fatigue (Chronic) Anxiety (Chronic) Dyspnea (Acute) Left lower quadrant abdominal pain (Acute) Hernia of anterior abdominal wall (Acute) containing fat and mesenteric vessel Social History/Home Situation: [] Current Functional Limitations: [] Equipment Owned/DME: [] Subjective: [] Objective: [] General Observation: [] Mental Status: [] Pain: [] Vital Signs: [] ROM: Right Upper Extremity: [] Left Upper Extremity: [] Right Lower Extremity: [] Left Lower Extremity: [] Strength: Right Upper Extremity: [] Left Upper Extremity: [] Right Lower Extremity: [] Left Lower Extremity: [] Sensation: [] Bed Mobility/Transfers: [] Gait: [] Balance: [] Static Sitting: [] Dynamic Sitting: [] Static Standing: [] Dynamic Standing: [] Special Tests: Mobility Limitations Standardized Measure [facility] 6 clicks Basic Mobility Inpatient Short Form: Raw Score: [] Standardized Score: [] CMS Score: [] Informed Consent/Education: Patient instructed in purpose of PT consult and plan of care. Assessment: Patient is a [] year old [] referred to physical therapy services with the diagnosis of []. Patient presents with clinical signs and symptoms consistent with [], as demonstrated by the following impairment level findings: []. Impairments are contributing to the following functional limitations: AMPAC score. Patient is assessed as a [] Low 83798 [] Moderate 10780 [] High 91608 complexity based on the following: History: [] Examination: [] Presentation: [] Decision Making: [] Goals: Goals X1 week 1. Supine-Sit [] 2. Sit-Supine [] 3. Sit-Stand [] 4. Stand-Sit [] 5. Bed-Chair [] 6. Chair-Bed [] 7. Gait [] 8. Stairs [] 9. Independent with home exercise program [] 10. Balance [] Plan of Care/Treatment Plan: 1-2x/day, 7 days/week x 1 week. Plan of care has been reviewed with the RUNNING RIGGER providing the service under Physical Therapy direction. Initiate Physical Therapy intervention for strengthening, bed mobility, transfers, gait, stairs, balance training, use of assistive device. DISCHARGE RECOMMENDATIONS: [] [] Home with no services [] [] Home with services [specify] [] Home with outpatient PT [] [] SNF for continued rehabilitation [] [] Acds Block 1 Operator Care [] [] SNF versus LTC based on ability to participate and progress [] TREATMENT CODE/TIME: []
--- NOTE | 2022-06-30 10:15 | DI.RAD_ITS ---
Exam(s) XR KNEE LT 1V EXAM: XR KNEE LT 1V CLINICAL HISTORY: TIBIAL PLATEAU FRACTURE. TECHNIQUE: 2D digital imaging was performed. COMPARISON: No exams were available for comparison FINDINGS: Fluoroscopy provided during placement of internal external fixation device. See procedure report for details. Total fluoroscopy time 12 seconds. IMPRESSION: Radiation exposure index/cumulative \Air Kerma= 0.5175 mGy DATA REPOSITORY: RADIATION DOSE DELIVERED:
--- NOTE | 2022-06-30 10:29 | PT.INNT ---
PT Notes Visit Reasons: Left Tibial Plateau Fx Chart preparation, patient waiting to have surgery and nurse stated to wait til tomorrow for PT evaluation.
[2022-06-30] MEDS: Bupivacaine 0.5% Pres-Free 30 ML VIAL (11:15)
[2022-06-30] MEDS: fentaNYL 100 MCG/2 ML VIAL IVP (11:48)
--- NOTE | 2022-06-30 12:11 | W.ANESPOSTOP ---
Postoperative Evaluation Date, Time and Location Date Performed: 06/30/22 Time Performed: 12:11 Patient Location: PACU Vital Signs Most Recent Imported Vital Signs: Most Recent Vital Signs Temp Pulse Resp BP Pulse Ox 36.5 C 74 9 L 141/48 H 93 06/30/22 07:40 06/30/22 10:01 06/30/22 10:01 06/30/22 10:01 06/30/22 10:01 Pain Score Most Recent Pain Score: Most Recent Pain Score Pain Level 10 06/30/22 09:50 Assessment Mental Status: Arousable with meaningful communication Airway and Respiratory Function: Patent airway with normal (patient baseline) respiratory exam Cardiovascular Function: Hemodynamically Stable Hydration Status: Adequately Hydrated Nausea & Vomiting: No Nausea or Vomiting Pain: Pain is Moderate or Severe Postoperative Pain Management: Pain being addressed with medication Peripheral Nerve Block: Patient did not receive a nerve block
[2022-06-30] MEDS: ACETAMINOPHEN 1,000 MG/100 ML BTL 400 MG IVPB (12:23)
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
[2022-06-30] MEDS: Ketorolac 15 MG/ML VIAL IVP ×2 (14:32→21:30)
[2022-06-30] MEDS: Normal Saline 250 ML 500 ML IV (14:55)
[2022-06-30] MEDS: Lidocaine 5% Patch 1 PATCH TP (16:19)
[2022-06-30] MEDS: Docusate Sodium 100 MG CAP PO ×2 (16:19→21:33)
[2022-06-30] MEDS: ceFAZolin 1 GM/50 ML BAG IVPB ×2 (16:20→23:52)
[2022-06-30] MEDS: HYDROcodone 10/Acetaminophen 325 TAB PO ×2 (16:20→23:51)
--- NOTE | 2022-06-30 17:50 | ROE_ITS ---
Date of service: 06/30/22 Time of Service: 11:30 Operative Note Operative Note DATE OF PROCEDURE: 06/30/22 PRE-OP DIAGNOSIS: Left Shatzker Tibial Plateau Fracture POST-OP DIAGNOSIS: same PROCEDURE: External Fixation of Left Tibial Plateau Fracture SURGEON: Pedro Pablo Stein AGRICULTURAL ECONOMICS TEACHER: Itz Mena ANESTHESIA TYPE: General LMA/ETT Refer to Anesthesia Record ESTIMATED BLOOD LOSS: 5 COMPLICATIONS: None Indications: Sandra is a 77-year-old female who suffered a fall down embankment resulting in aJini significantly displaced, comminuted Schatzker 6 tibial plateau fracture. Given the medial involvement, amount of swelling, and pain, recommended stabilization with an external fixator. I discussed this with Sandra, as well as her daughter. I reviewed the technical features. I was very clear that this was a temporizing procedure to allow swelling to decrease and to obtain stability for hopeful improvement with pain. I reviewed the risk to include bleeding from the pin sites, infection surrounding the pin sites, skin irritation, damage nerves and vessels, damage to muscles and tendons. Despite these risks, she elected to proceed. Findings: There was a notably displaced tibial plateau fracture. Fixation pins were placed in the distal tibia as well as in the distal femur. Reduction was obtained and held with the fixator device. Procedure Description: Sandra was greeted in the holding area of the operating room. I have previously reviewed the case with Farnaz jay and a consent was signed. She was taken back to the operating room where a general anesthetic was administered. She is then transferred to the operating room bed. The left leg was placed onto a bone foam ramp. Prophylactic antibiotics in the form of cefazolin were administered. A timeout was performed for safe surgery. I then placed the 4 skeletal traction pins. The first 2 were placed in the distal tibia. The skin was incised sharply and blunt dissection was carried down with a snap to the level of the anterior medial tibia just medial to the tibial crest. The 3 in 1 sheath was inserted. The 3.5 mm drill was then used to prepare the pathway for the traction pin. The pin was then inserted. The bracket was then placed around this first to itz the site of the second pin. In a similar fashion a second pin was then placed in the distal tibia. These pins were placed in a vertical orientation just off the medial aspect of the tibial crest. 2 distal femur pins were then placed in a similar fashion starting with the distalmost pin, superior to the joint space. This was placed in anterior lateral position through the vastus lateralis musculature and away from the quadriceps tendon. Skin was incised sharply and the deeper tissues were bluntly with a snap. The sheath was inserted and then the traction pin site was drilled and the traction pin was placed. Once again, the bracket was placed under this pin to itz the position of the second pin which was placed in similar fashion. X-rays and used to confirm appropriate positioning of the pins. Bone quality was not quite as good as I was anticipating but each pin was tested and showed to have purchase into the bone which is unable to be pulled out. I then applied the brackets to each set of pins and loosely assembled the bars of the external fixation device. A reduction maneuver was performed with some traction and varus stress to the knee. AP x-ray showed appropriate positioning with an obvious defect of the lateral tibia. The external fixation bars and locking plates as well as the racquet. Traction was released and x-ray showed appropriate positioning. A lateral view of the x-ray was then obtained which once again showed reduction of the joint space along with appropriate positioning of the posterior tibial fracture fragments. The pin sites were injected with 0.5% bupivacaine. These areas were dressed with Xeroform, 4 x 4's and Kerlix. She was awake from anesthesia suffering no notable complications. She was taken back to PACU for initial recovery and then back to the floor.
[2022-06-30] MEDS: Insulin Glargine 300 UNITS/3 ML PEN 34 UNITS SC (21:26)
[2022-06-30] MEDS: Gabapentin 100 MG CAP 200 MG PO (21:33)
--- NOTE | 2022-06-30 22:24 | W.PM.PROGNOT ---
Date of Service Date of service: 06/30/22 Time of Service: 18:40 Assessment and Plan Assessment and plan (1) Displaced bicondylar fracture of left tibia, initial encounter for closed fracture: Status: Acute Assessment and plan: Sandra is s/p ex-fix of the left tibial plateau fracture. She is doing well. While she is swollen she does not have signs of compartment syndrome. She has had improvement with pain after the ex-fix and is much more comfortable. She will remain NWB LLE. Keep LLE elevatd at all times. D/C Fluids. Regular diet. May start anticoagulation. Subjective Subjective Interval history since last seen: Sandra reports to be doing well. She had soem initial pain after the ex-fix placement but this is now better than what it was. She has been comfortable. There has been some serosanguinous discharge from the distal femur pin. Exam Narrative Exam Narrative: Sitting up and chatting on the phone with her sister. SANCHEZ. AAOx3. LLE proximal dressing has serosanguinous discharge. This was redressed. She is actively moving the left foot and ankle. No significnat pain with passive ankle dorsiflexin/plantarflexion or great toe extension or flexion. Proximal calf is quite swollen yet compressible. No wrinkling. Palpable DP/PT. Objective Last Vital Signs Temp 36.2 C L 07/01/22 06:02 Pulse 75 07/01/22 06:02 Resp 18 07/01/22 06:02 BP 152/56 H 07/01/22 06:02 Pulse Ox 95 07/01/22 06:02 Laboratory Results - last 24 hr 07/01/22 07/01/22 05:20 05:20 WBC 12.76 H RBC 3.14 L Hgb 9.7 L Hct 28.1 L MCV 90 MCH 30.9 MCHC 34.5 RDW 12.4 Plt Count 151 MPV 11.6 H Immature Gran % 0.5 Neutrophils % 81.8 Lymphocytes % 9.9 Monocytes % 7.5 Eosinophils % 0.2 Basophils % 0.1 Nucleated RBC % 0.0 Absolute Neutrophils 10.44 H Absolute Lymphocytes 1.26 Absolute Monocytes 0.96 H Absolute Eosinophils 0.03 Absolute Basophils 0.01 Sodium 134 L Potassium 4.3 Chloride 97 L Carbon Dioxide 28.8 Anion Gap 8.2 BUN 14 Creatinine 0.7 Est GFR (CKD-EPI 2020) 87.92 Glucose 125 H Calcium 9.1 Time Spent with Patient Time Spent with Patient: <25 minutes Time was spent: obtaining and/or reviewing separately otained hiistory and counseling the patient
[2022-07-01] VITALS (14 sets, daily range): BP systolic 143–152; BP diastolic 50–62; PULSE 73–76; RESP 15–18; TEMP 36.2–36.7; O2SAT 92–100
[2022-07-01] MEDS: Ketorolac 15 MG/ML VIAL IVP ×3 (01:54→14:08)
[2022-07-01] MEDS: Patch Removal 1 EACH TP (05:00)
[2022-07-01] MEDS: HYDROcodone 10/Acetaminophen 325 TAB PO ×2 (05:50→12:09)
[2022-07-01 06:29] LABS: Abs Immature Grans 0.07 10^3/uL (0.0-0.06); Absolute Basophil Count 0.01 10^3/uL (0.0-0.2); Absolute Lymphocyte Count 1.26 10^3/uL (1.2-3.4); Absolute Monocyte Count 0.96 10^3/uL (0.1-0.8); Absolute Neutrophil Count 10.44 10^3/uL (1.2-6.7); Basophils % 0.1; Eosinophils % 0.2; HCT 28.1 % (36.0-46.0); HGB 9.7 g/dL (11.2-15.7); Immature Grans % 0.5; Lymphocytes % 9.9; MCH 30.9 pg (27.0-33.0); MCHC 34.5 % (32.0-36.0); MCV 90 fL (80-95); MPV 11.6 fL (8.0-11.0); Monocytes % 7.5; Neutrophils % 81.8; Platelet Count 151 10^3/uL (130-400); RBC 3.14 10^6/uL (3.93-5.22); RDW 12.4 % (11.7-14.6); RDW-SD 40.7 fL; WBC 12.76 10^3/uL (4.4-10.8)
[2022-07-01 06:30] LABS: Absolute Eosinophil Count 0.03 10^3/uL (0.0-0.7)
[2022-07-01 07:14] LABS: Anion Gap 8.2 mmol/L (3-11); BUN 14 mg/dL (7-18); CO2 28.8 mmol/L (21.0-32.0); CREATININE 0.7 mg/dL (0.55-1.02); Calcium 9.1 mg/dL (8.5-10.1); Chloride 97 mmol/L (98-107); Estimated GFR 87.92 (mL/min/1.73m2); Glucose 125 mg/dL (74-106); Potassium 4.3 mmol/L (3.5-5.1); Sodium 134 mmol/L (136-145)
[2022-07-01 07:21] LABS: Magnesium 1.8 mg/dL (1.8-2.4)
[2022-07-01] MEDS: Budesonide/Formoterol 160/4.5 6 GM 60 PUFF INH IH (07:49)
--- NOTE | 2022-07-01 08:57 | W.PM.PROGNOT ---
Date of Service Date of service: 07/01/22 Time of Service: 08:57 Assessment and Plan Assessment and plan (1) Fracture of tibial plateau: Status: Acute Assessment and plan: Mechanical fall with complex tibial plataeu and proximal fibular fracture. s/p external fixation of Schatzker bicondylar tibial plateau fracture. Awaiting transfer to [facility] when bed becomes available for definitive repair Begin DVT prophylaxis w/ enoxparin Add IS and acapella. Professional time spent interviewing and examining patient, discussion of goals of care with hospital team (care management, nursing and consulting professionals) was 30 minutes. (2) Chronic pain: Status: Chronic Assessment and plan: patient being treated w/ ketorolac on scheduled basis along w/ hydromorphone w/ APAP prn and also prn morphine iv. She has not been on scheduled bowel regimen but is no prn docusate and prn miralax. I will place her on scheduled bowel regimen of senna and docusate and miralax. If she gets constipated then I will give her Relistor. I will add a PPI as she is on scheduled ketorolac. Qualifiers: Chronic pain type: other chronic pain Qualified Code(s): G89.29 - Other chronic pain (3) Diabetes mellitus: Status: Chronic Assessment and plan: A1c up somewhat but at a very good goal give age. Continue her glargine and gliptin, hold the sulfonurea and give moderate ISS. agree w/ above plan as outlined by Dr. Perez Qualifiers: Diabetes mellitus type: type 2 Diabetes mellitus grain manager insulin use: without grain manager use Diabetes mellitus complication status: with hyperglycemia Qualified Code(s): E11.65 - Type 2 diabetes mellitus with hyperglycemia (4) Essential hypertension: Status: Chronic Assessment and plan: BP high right now but in the setting of actue pain. Continue outpaitent medication (5) Cough variant asthma: Status: Chronic Assessment and plan: Lungs are clear. Continue outpatient ICS/LABA. (6) Depressive disorder: Status: Chronic Assessment and plan: stable, continue outpatient medications (7) DVT prophylaxis: Status: Acute Assessment and plan: SCD on right leg but needs prophylaxis. I have added enoxaparin per my discussion w/ Dr. Stein (8) Discharge planning issues: Status: Acute Assessment and plan: Stable on med surg status in the ICU Subjective Subjective Interval history since last seen: Patient pain is controlled w/ hydrocodone/APAP and ketorolac. Exam Narrative Exam Narrative: Left leg w/ edema of the foot, ankle and lower leg, some serosanguinous drainage from the tibia dressing; pedal pulses intact, sensory exam intact to light touch over the foot and leg She is able to dorsiflex and plantar flex toes and ankle Sensorium is clear, answers questions appropriately Lungs: clear to auscultation Heart: regular, no murmur Abdomen; soft, nontender Objective Last Vital Signs Temp 36.2 C L 07/01/22 06:02 Pulse 75 07/01/22 06:02 Resp 18 07/01/22 06:02 BP 152/56 H 07/01/22 06:02 Pulse Ox 95 07/01/22 06:02 Laboratory Results - last 24 hr 07/01/22 07/01/22 07/01/22 05:20 05:20 05:20 WBC 12.76 H RBC 3.14 L Hgb 9.7 L Hct 28.1 L MCV 90 MCH 30.9 MCHC 34.5 RDW 12.4 Plt Count 151 MPV 11.6 H Immature Gran % 0.5 Neutrophils % 81.8 Lymphocytes % 9.9 Monocytes % 7.5 Eosinophils % 0.2 Basophils % 0.1 Nucleated RBC % 0.0 Absolute Neutrophils 10.44 H Absolute Lymphocytes 1.26 Absolute Monocytes 0.96 H Absolute Eosinophils 0.03 Absolute Basophils 0.01 Sodium 134 L Potassium 4.3 Chloride 97 L Carbon Dioxide 28.8 Anion Gap 8.2 BUN 14 Creatinine 0.7 Est GFR (CKD-EPI 2020) 87.92 Glucose 125 H Calcium 9.1 Magnesium 1.8 Time Spent with Patient Time Spent with Patient: 25-34 minutes Time was spent: preparing to see the patient(eg.review tests), obtaining and/or reviewing separately otained hiistory, ordering medications,tests, procedures, referring, communicating with other health hearing care practitioner (Dr. Stein), indepentently interpreting results, counseling the patient and care coordination
--- NOTE | 2022-07-01 09:33 | W.PM.PROGNOT ---
Date of Service Date of service: 07/01/22 Time of Service: 09:33 Assessment and Plan Assessment and plan (1) Displaced bicondylar fracture of left tibia, initial encounter for closed fracture: Status: Acute Assessment and plan: Sandra is s/p ex-fix placement for her left tibial plateau fracture. SHe is stable and while her leg is very swollen, there is some compressibility and she doesn't have any clinical features for compartment syndrome. I encourage to keep the leg elevated - foot higher than knee higher than hip. Reinforce the pin site dressings as needed. She will need definitive fixation at [facility] [place] - I will initiate transfer request although unlikely today. Prophylaxis DVT with Lovenox. PPI. Appreciate Medicine management but currently doing well without acute exacerbation of underlying medical conditions. Subjective Subjective Interval history since last seen: Sandra reports be doing well. She has had some pain but it has been controlled. She has been able to position and reposition herself in bed with much less discomfort than previously. She is try to keep the left leg elevated is much as possible but does complain of pain in the posterior aspect of the left leg and surrounding the proximal leg. She denies any new numbness or tingling. She has been able to move her left foot and ankle with some pain at the endpoints. She denies chest pain or shortness of breath. She denies fevers or chills. The proximal pin sites were reinforced 1 time yesterday without any other bleedthrough. Exam Narrative Exam Narrative: Sitting up in the hospital bed eating breakfast. No acute distress. Alert and orient x3. Valuation of left lower extremity shows external fixator in appropriate position. No notable drainage is seen on the dressings. There is significant swelling about the left knee as well as the proximal aspect of the left leg. These compartments are compressible although they are quite swollen. There is no wrinkling of the skin in these regions. More distally the compartments are much more soft and show signs of wrinkling. She is able to demonstrate active ankle dorsiflexion and plantarflexion as well as great toe extension and flexion. Passive range of motion also does not seem to increase pain except for maximal dorsiflexion. However, she tolerates an arc of motion without significant increase in pain. She endorses full sensation over the deep and superficial peroneal nerve and tibial nerve. Faintly palpable DP pulse. Capillary refill less than 3 seconds. Objective Last Vital Signs Temp 36.2 C L 07/01/22 06:02 Pulse 75 07/01/22 06:02 Resp 18 07/01/22 06:02 BP 152/56 H 07/01/22 06:02 Pulse Ox 95 07/01/22 06:02 Laboratory Results - last 24 hr 07/01/22 07/01/22 07/01/22 05:20 05:20 05:20 WBC 12.76 H RBC 3.14 L Hgb 9.7 L Hct 28.1 L MCV 90 MCH 30.9 MCHC 34.5 RDW 12.4 Plt Count 151 MPV 11.6 H Immature Gran % 0.5 Neutrophils % 81.8 Lymphocytes % 9.9 Monocytes % 7.5 Eosinophils % 0.2 Basophils % 0.1 Nucleated RBC % 0.0 Absolute Neutrophils 10.44 H Absolute Lymphocytes 1.26 Absolute Monocytes 0.96 H Absolute Eosinophils 0.03 Absolute Basophils 0.01 Sodium 134 L Potassium 4.3 Chloride 97 L Carbon Dioxide 28.8 Anion Gap 8.2 BUN 14 Creatinine 0.7 Est GFR (CKD-EPI 2020) 87.92 Glucose 125 H Calcium 9.1 Magnesium 1.8 Time Spent with Patient Time Spent with Patient: 25-34 minutes Time was spent: obtaining and/or reviewing separately otained hiistory, referring, communicating with other health patient care director, counseling the patient and care coordination
[2022-07-01] MEDS: Polyethylene Glycol 3350 17 GM PACKET PO (09:41)
[2022-07-01] MEDS: Psyllium PKT 0.5 EACH PO (09:42)
[2022-07-01] MEDS: Enoxaparin 30 MG/0.3 ML SYR SC (09:47)
[2022-07-01] MEDS: ceFAZolin 1 GM/50 ML BAG IVPB (09:48)
[2022-07-01] MEDS: Montelukast 10 MG TAB PO (09:50)
[2022-07-01] MEDS: Cholecalciferol (Vitamin D3) 1,000 UNIT TAB 2000 UNITS PO (09:50)
[2022-07-01] MEDS: Lisinopril 10 MG TAB PO (09:51)
[2022-07-01] MEDS: hydroCHLOROthiazide 12.5 MG TAB PO (09:51)
[2022-07-01] MEDS: Esomeprazole 40 MG CAPCR PO (09:51)
[2022-07-01] MEDS: Pantoprazole 40 MG TABCR PO (10:01)
[2022-07-01] MEDS: Docusate Sodium 100 MG CAP PO (14:08)
--- NOTE | 2022-07-01 14:29 | W.PM.DS.N ---
Date of service: 07/01/22 Time of Service: 14:30 DS: Diagnosis Discharge Diagnosis (1) Displaced bicondylar fracture of left tibia, initial encounter for closed fracture: Status: Acute Asessment and Plan: see details below as well as her H&P and Dr. Stein's consultation notes. Patient remains at bedrest, s/p external fixation of Schatzker type 6 comminuted tibial plateau fracture. Sensory and vascular exam are intact. Patient has significant swelling in lower leg and foot. Definitive surgical internvention are needed as well as close monitoring for compartment syndrome. Patient is being transferred to [facility] for tertiary care by trauma orthopedics. Her DM type II have been controlled w/ basal/bolus insulin and BP has been reasonably controlled except when she has been in acute pain. Discharge Plan Disposition Patient Disposition: Transfer-Acute Inpatient Care Specific Acute Inpt Facility: [facility] Condition: Improving Discharge Details Reason For Visit: Left Tibial Plateau Fx Admit Date/Time: 06/29/22 22:31 Admit Provider: Winston Perez Attending Provider: Winston Perez Primary Care Provider: Zev Denton Hospital Course Hospital Course: 77 yr old female w/ PMH of asthma, DM type II (on insulin), HTN who sustained a fall down an embankment while disposing of old birdseed and suet and sustained a comminuted Schatzker type 6 bicondylar tibial plateau fracture of her left tibia. Ct scan demonstrated more comminution and extension of the fracture than what was intially revealed on her plain film xrays and was associated w/ hemarthrosis of the joint causing her uncontrollable pain and swelling of the left lower leg. Our local orthopedic surgeon, Dr. Pedro Pablo Stein was consulted on her case and because neither [facility] in [place], [place] nor [facility] in [place], [place] had any bed capacity for transfer, Dr. Stein proceeded w/ external fixation of the fracture to stabilize the fracture until definitive repair could take place. It was felt that the surgery she would require for definitive repair was too complex to be managed at [facility]. The external fixation did help to stabilize her fracture. However, she still has significant pain w/ any movement. She is currently bedbound although she is able to rotate in bed. She is requiring both parenteral NSAID (ketorolac) as well as parenteral (morphine) and oral narcotics (hydrocodone/w/ APAP). Dr. Stein has discussed her case w/ the trauma team at [facility]. The patient has been accepted to the hospitalist service at [facility] w/ consultation w/ the trauma orthopedist. Patient was transferred in stable condition. Home Meds and New Rx's Prescriptions: No Action (DME) blood-glucose meter Kit See Rx Instructions .ROUTE .MEDSUPPLY Qty: 1 0RF Rx Instructions: TID glucose monitoring - E11.9 lorazepam 0.5 mg tablet 0.25 mg PO HS MDD 0.25mg PRN (Reason: anxiety) Qty: 15 0RF albuterol sulfate 90 mcg/actuation HFA aerosol inhaler 2 puff inhalation BID PRN (Reason: shortness of breath or wheezing) Qty: 8.5 6RF (DME) blood sugar diagnostic Strip See Dose Instructions .ROUTE .MEDSUPPLY Qty: 300 6RF Dose Instruction: As directed Rx Instructions: Check blood sugar tid: Dx E11.9 bupropion HCl 150 mg tablet sustained-release 12 hr 150 mg PO BID Qty: 180 3RF esomeprazole magnesium 40 mg capsule,delayed release(DR/EC) 40 mg PO BID Qty: 180 3RF fluticasone propion-salmeterol [Advair HFA] 115-21 mcg/actuation HFA aerosol inhaler 2 puff inhalation BID Qty: 8 6RF gabapentin 100 mg capsule 200 mg PO HS Qty: 180 3RF glimepiride 2 mg tablet 2 mg PO QPM Qty: 90 3RF insulin glargine [Lantus Solostar U-100 Insulin] 100 unit/mL (3 mL) insulin pen 30 - 40 unit SC DAILY 30 Days Qty: 15 2RF (DME) lancets [OneTouch Delica Lancets] 33 gauge misc See Dose Instructions .ROUTE .MEDSUPPLY Qty: 300 4RF Dose Instruction: As directed Rx Instructions: 3x per day - glucose monitoring Dx E11.65 lidocaine 5 % adhesive patch,medicated 1 patch TP DAILY Qty: 10 8RF Tradjenta 5 mg tablet 5 mg PO DAILY Qty: 90 3RF lisinopril-hydrochlorothiazide 10-12.5 mg tablet 1 tab PO DAILY Qty: 90 3RF montelukast 10 mg tablet 10 mg PO DAILY Qty: 90 3RF hydrocodone-acetaminophen 10-325 mg tablet 1 tab PO BID MDD 20mg PRN (Reason: backpain) Qty: 60 0RF Metamucil Sugar-Free (aspart) 3.4 gram/5.8 gram powder 5.8 g PO DAILY Qty: 1040 6RF Rx Instructions: start 1/2 TBSP daily and work up to a full TBSP daily in 4oz water multivitamin [Daily Multi-Vitamin] 1 EACH tablet 1 ea PO DAILY One-Per-Day Laurel-3 1 EACH capsule,delayed release(DR/EC) 1,000 mg PO HS narcotic contract 0RF Rx Instructions: narcotic contract cholecalciferol (vitamin D3) 2,000 UNIT tablet 2,000 unit PO DAILY naloxone [Narcan] 4 MG spray,non-aerosol 4 mg NS PRN Qty: 2 0RF acetaminophen 500 mg tablet 500 mg PO TID PRN (DME) Hearing Aid Batteries Misc See Rx Instructions .ROUTE .MEDSUPPLY Qty: 8 12RF Rx Instructions: As directe- Energizer [id number]- Hearing aid Batteries (DME) pen needle, diabetic [Microdot Insulin Pen Needle] 32 gauge x 5/32 needle See Rx Instructions .ROUTE .MEDSUPPLY Qty: 90 4RF Rx Instructions: For daily insulin injection-DM E11.9 Discharge Instructions Instructions: External Fixation Device for an Adult (DC) Activity:: bedrest Equipment/Supplies:: No Equipment Needed Diet:: Normal Diet Discharge Orders Discharge Orders: Discharge Order (Routine); Ordered 07/01/22 Ordered By: Rudy Kim DS: Summary Time Spent with Patient providing and/or coordinating discharge services: Less than 30 minutes Specific discharge activities: Interview/exam of patient; review of discharge instructions, completion of discharge instructions/summary; discussion w/ nursing and CM; documentation of hospital visit Status at Discharge Functional status at discharge: bed bound Overall status at discharge: patient is not back to baseline Mental Status: mental status grossly normal Speech and Movement: speech and movement normal Mood: congruent mood Affect: normal affect Exam Narrative Exam Narrative: Left leg w/ edema of the foot, ankle and lower leg, some serosanguinous drainage from the tibia dressing; pedal pulses intact, sensory exam intact to light touch over the foot and leg She is able to dorsiflex and plantar flex toes and ankle Sensorium is clear, answers questions appropriately Lungs: clear to auscultation Heart: regular, no murmur Abdomen; soft, nontender Psych Mental Status: mental status grossly normal Speech and Movement: speech and movement normal Mood: congruent mood Affect: normal affect DS: Data Vitals/I&O Vitals and I&O: Vital Signs Temperature 36.7 C 07/01/22 11:40 Temperature Source Temporal Artery Scan 07/01/22 11:40 Pulse 73 07/01/22 11:41 Pulse Rhythm Regular 07/01/22 11:40 Pulse 71 06/30/22 10:02 Respiratory Rate 18 07/01/22 06:02 Respiratory Effort Normal, Non-Labored 07/01/22 11:40 Respiratory Depth Normal 07/01/22 11:40 Respiratory Pattern Normal 07/01/22 11:40 Blood Pressure 143/62 H 07/01/22 11:41 Blood Pressure Mean 81 07/01/22 11:41 Blood Pressure Position Supine 06/30/22 12:35 Pulse Oximetry 93 07/01/22 11:41 Respiratory End-tidal CO2 36 06/30/22 12:26 Oxygen Delivery Method Nasal Cannula 07/01/22 06:02 Oxygen Flow Rate 1 07/01/22 06:02 Pain Level 4 07/01/22 14:08 Comment RN present 06/30/22 00:10 Intake & Output 06/30/22 07/01/22 07/01/22 23:59 11:59 23:59 Intake Total 2050.000 / 2170.000 430 / 430 Output Total 500 / 750 850 / 850 Balance 1550.000 / 1420.000 -420 / -420 Weight 64.5 kg Intake: IV 1450.000 / 1450.000 50 / 50 Oral 600 / 720 380 / 380 Output: Urine 500 / 750 850 / 850 Other: Urine Color Yellow Yellow Light [place] Urine Appearance Clear Clear Urine Odor Strong None Comment pt. sleeping at this time Emesis Description None Voiding Methods Bedpan Bedpan Data Completed and Pending Labs on day of discharge: Labs from last 24 hours 07/01/22 07/01/22 07/01/22 05:20 05:20 05:20 WBC 12.76 H RBC 3.14 L Hgb 9.7 L Hct 28.1 L MCV 90 MCH 30.9 MCHC 34.5 RDW 12.4 Plt Count 151 MPV 11.6 H Immature Gran % 0.5 Neutrophils % 81.8 Lymphocytes % 9.9 Monocytes % 7.5 Eosinophils % 0.2 Basophils % 0.1 Nucleated RBC % 0.0 Absolute Neutrophils 10.44 H Absolute Lymphocytes 1.26 Absolute Monocytes 0.96 H Absolute Eosinophils 0.03 Absolute Basophils 0.01 Sodium 134 L Potassium 4.3 Chloride 97 L Carbon Dioxide 28.8 Anion Gap 8.2 BUN 14 Creatinine 0.7 Est GFR (CKD-EPI 2020) 87.92 Glucose 125 H Calcium 9.1 Magnesium 1.8 PFSH All Active Problems Displaced bicondylar fracture of left tibia, initial encounter for closed fracture (Acute) Discharge planning issues (Acute) DVT prophylaxis (Acute) Fracture of tibial plateau (Acute) Incisional hernia (Acute) Centimeters superior to the umbilicus from remote open [place] fundoplication. 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 No concerns for diversion. Depressive disorder (Chronic) Diabetes mellitus (Chronic 06/13/12) Essential hypertension (Chronic 01/19/13) Gastroesophageal reflux disease with esophagitis (Chronic) h/o esophageal stricture (dilated at [facility]) Insomnia (Chronic) Osteoarthritis (Chronic) Shoulder pain, bilateral (Chronic 02/14/07) right shoulder; MRI-DJD/rotator cuff Diabetic retinopathy (Chronic ~01/08/18) 01/08/18; ANDRIY; MILD B/L-kb 05/08/20: GEGEE; MILD B/L-kb History of poliomyelitis (Chronic) Diabetic foot with normal protective sensation, peripheral vasculature, and bone structure (Acute) Sciatic nerve pain (Chronic) Right Conductive hearing loss, external ear (Chronic) Sensorineural hearing loss of both ears (Chronic) Thyroid lesion (Chronic) Atherosclerosis (Chronic) Knee pain, left (Chronic) Cough variant asthma (Chronic) Per [facility] Pulmonology 03/04/20 Fatigue (Chronic) Anxiety (Chronic) Dyspnea (Acute) Left lower quadrant abdominal pain (Acute) Hernia of anterior abdominal wall (Acute) containing fat and mesenteric vessel Medical History Advanced directives, counseling/discussion Chronic low back pain with left-sided sciatica (02/12/14) Post Polio Syndrome [facility] MRI 05/03 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 Uses Lidocaine patches and Hydrocodone 10-325 up to TID PRN. She continues to walk for exercise. Also uses 200g Gabapentin QD. Family hx-breast malignancy mother Fibrocystic disease of breast left breast bx Grief Loss of spouse 05/2019 Hyperplastic polyps of stomach 03/30/15;[facility] Impacted cerumen of both ears Surgical History Abdominal hysterectomy Appendectomy Biopsy of breast Bladder Surgery DILATION ESOPHAGEAL; MULTIPLE TIMES DISC SURGERY Reduction mammoplasty (~2001) Family History Brother Essential hypertension Brother No problems noted. Mother Essential hypertension Personal history of malignant neoplasm colon and throat Father Heart disease Sister Diabetes Essential hypertension Sister Essential hypertension Sister No problems noted. Maternal Aunts Personal history of malignant neoplasm Breast Cancer Other Family hx-breast malignancy Social History Smoking/Tobacco Use Status: Never Second Hand Exposure: Yes Smoking risk assessment performed?: Yes Alcohol Intake: never Drug use: Never Substance use type: does not use and painkillers Details: perscribed hydocodone Caregiver/Support person: No Household members: none Housing: other Details: Mobile Home Communication Needs: Hard of Hearing Do you need help understanding health information?: Never current occupation: CAREGIVER Pets and animals: Yes Pets and animals: cat(s) and dog(s) Sexually active: No Do you think of yourself as: straight/heterosexual Current gender identity: female What is your relationship status?: How often do you talk on the phone with friends or family?: three or more times per week How often do you get together with friends or relatives?: three or more times per week How often do you attend mandaeism or yazdanism services?: 4 or more times per year Do you belong to any clubs or organized social groups?: no Panel score (0-1 are the most socially isolated patients): 2 What type of physical activity do you participate in: walking Duration: 30-45 minutes/day Frequency: daily Helena/Denominational: Adventist Special helena needs: Yes Seatbelt use: always Helmet use: No Drive intox or ride w/intox carry all driver: No Do you feel safe at home: Yes Do you feel safe in your relationship?: Yes Additional Social history: Retired RN, 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 Plays several instruments. History History 5 Para 3 Hx # Term Pregnancies 3 Multiple births Hx # Pregnancies Ectopic pregnancies AB induced Hx Number of Living Children 3 AB spontaneous 2 Time Spent with Patient Time Spent with Patient: <45 minutes Time was spent: preparing to see the patient(eg.review tests), referring, communicating with other health director of health care marketing (Dr. Stein), counseling the patient and care coordination
== END 2022-07-01 18:15 | disposition short-term general hospital (02) | DRG 494 ==
LOC: ER 22:31 → ICU 06-30 00:03
PROVIDERS: Family Medicine; Student in an Organized Health Care Education/Training Program; Admitting Provider Family Medicine; Emergency Provider Emergency Medicine; PCP Nurse Practitioner Family; Visit Provider Family Medicine
PROC: 0QSH35Z Reposition Left Tibia with External Fixation Device, Percutaneous Approach (ICD-10-PCS; CPT 27538; principal; 2022-06-30 01:00)
DX: S82.142A Displaced bicondylar fracture of left tibia, initial encounter for closed fracture (principal); W10.2XXA Fall (on)(from) incline, initial encounter; G89.29 Other chronic pain; I10 Essential (primary) hypertension; E11.65 Type 2 diabetes mellitus with hyperglycemia; J45.991 Cough variant asthma; F32.A Depression, unspecified; B91 Sequelae of poliomyelitis; K21.00 Gastro-esophageal reflux disease with esophagitis, without bleeding; E11.319 Type 2 diabetes mellitus with unspecified diabetic retinopathy without macular edema; K57.30 Diverticulosis of large intestine without perforation or abscess without bleeding; I70.90 Unspecified atherosclerosis; G47.00 Insomnia, unspecified; M54.31 Sciatica, right side; R15.9 Full incontinence of feces; K43.2 Incisional hernia without obstruction or gangrene; Z80.0 Family history of malignant neoplasm of digestive organs; R53.82 Chronic fatigue, unspecified; F41.9 Anxiety disorder, unspecified
CPT/HCPCS: 27538; 20690; 36415; 36416; 73552; 73562; 76376; 80048; 80053; 82962; 85027; 87635; 93005; 94640; 96372; 96374; 96375; 96376; 99233; 99285; 71046; 73560; 73590; 73700; 83036; 83735; 85025; 85610; 85730; 93010; 94667; 99238; J0131; J0690; J1100; J1650; J1815; J1885; J2270; J2405; J2704; J3010; J3490

== ENCOUNTER 2022-12-17 21:52 | Outpatient (REF) | payer MEDICARE, MEDICAID, SELFPAY ==
[2022-12-18 01:44] LABS: Anion Gap 7.1 mmol/L (3-11); BUN 13 mg/dL (7-18); CO2 27.9 mmol/L (21.0-32.0); CREATININE 0.7 mg/dL (0.55-1.02); Calcium 9.5 mg/dL (8.5-10.1); Chloride 97 mmol/L (98-107); Estimated GFR 87.92 (mL/min/1.73m2); Ferritin 41 ng/mL (8-252); Glucose 147 mg/dL (74-106); Potassium 4.1 mmol/L (3.5-5.1); Sodium 132 mmol/L (136-145)
== END 2022-12-17 21:53 | disposition home or self-care (01) ==
LOC: LBN 21:52
PROVIDERS: PCP Nurse Practitioner Family; Visit Provider Nurse Practitioner Family
DX: E11.65 Type 2 diabetes mellitus with hyperglycemia (principal); G25.81 Restless legs syndrome; I10 Essential (primary) hypertension
CPT/HCPCS: 80048; 82728

== ENCOUNTER 2023-02-14 01:56 | Outpatient (CLI) | payer MEDICARE, MEDICAID, SELFPAY ==
[2023-02-14 16:47] LABS: Anion Gap 6.8 mmol/L (3-11); BUN 12 mg/dL (7-18); CO2 30.2 mmol/L (21.0-32.0); CREATININE 0.7 mg/dL (0.55-1.02); Calcium 10.1 mg/dL (8.5-10.1); Chloride 101 mmol/L (98-107); Estimated GFR 87.92 (mL/min/1.73m2); Glucose 132 mg/dL (74-106); Potassium 4.4 mmol/L (3.5-5.1); Sodium 138 mmol/L (136-145)
== END 2023-02-14 01:57 | disposition home or self-care (01) ==
LOC: LBO 01:56
PROVIDERS: PCP Nurse Practitioner Family; Visit Provider Nurse Practitioner Family
DX: E87.1 Hypo-osmolality and hyponatremia (principal)
CPT/HCPCS: 36415; 80048

== ENCOUNTER 2023-06-23 12:19 | Emergency (ER) | payer MEDICARE, MEDICAID, SELFPAY ==
[2023-06-23] VITALS (9 sets, daily range): BP systolic 148–190; BP diastolic 53–96; PULSE 78–90; RESP 20; TEMP 36.8; O2SAT 98
--- NOTE | 2023-06-23 12:30 | RT.EKG_ITS ---
APPROVED REPORT Exam: Resting ECG Reason for Exam: chest pain after fall Patient Location: E HR:83 bpm ECG Measurements Heart Rate 83 AXIS SC 157 P 60 QRSd 73 QRS 25 QT 378 T 71 QTc 445 Conclusion Sinus rhythm...normal P axis, V-rate 60- 99
--- NOTE | 2023-06-23 12:45 | DI.CT_ITS ---
Exam(s) CT CHEST/ABD/PEL W EXAM: CT CHEST/ABD/PEL W CLINICAL HISTORY: back and chest pain. TECHNIQUE: Imaging Protocol: Axial computed tomography images with coronal and sagittal reformatted images were created and reviewed CONTRAST MATERIAL: Intravenous: Omnipaque 350 Contrast volume:100 ml Oral: None COMPARISON: CT CT ABDOMEN PELVIS W from 05/22/2022 FINDINGS: CHEST: AORTA: Diameter of the thoracic aorta is upper normal and there is no evidence of dissection or peric ardial effusion. Also no evidence of abdominal aortic aneurysm nor aneurysm of the iliac vessels. LUNGS: No infiltrates nor pleural effusions. No ominous pulmonary nodules. No bronchiectasis.. MEDIASTINUM: There is no hilar nor mediastinal adenopathy. Visualized thyroid unremarkable. CARDIAC: Heart size is normal. There is no pericardial effusion.Caliber of the thoracic aorta is wit hin normal limits. OSSEOUS: No significant osseous lesions.. No fractures. ABDOMEN: There is no ascites. LIVER: There are no focal hepatic lesions nor dilatation of intrahepatic ducts. GALLBLADDER/BILIARY: Gallbladder not seen and presumed to be surgically absent. CBD is not dilated. PANCREAS: No evidence of pancreatic mass nor dilatation of the pancreatic duct. SPLEEN: Spleen is not enlarged. There are no intrasplenic lesions. Splenic and portal veins are church nt. ADRENALS: Slight thickening of the genu of the left adrenal gland. No concerning nodules evident in either adrenal gland. No evidence of adrenal hemorrhage. KIDNEYS: No calculi nor hydronephrosis. No solid renal masses. No cysts evident. ABDOMINAL AORTA: Abdominal aorta is not enlarged. LYMPH NODES: There is no retroperitoneal nor paraaortic adenopathy. ABDOMINAL WALL: No evidence of significant anterior abdominal wall nor inguinal hernia. GI: There is no evidence of bowel obstruction.No evidence of bowel wall nor mesenteric hematoma. PELVIS: LYMPH NODES: There is no intrapelvic nor inguinal adenopathy. No free fluid in the pelvis. GI: No evidence of appendicitis.No evidence of sigmoid diverticulitis. URINARY BLADDER: No calculi nor masses evident. No clots in the lumen. REPRODUCTIVE: Uterus atrophic or surgically absent. No abnormal adnexal masses. OSSEOUS: No significant osseous lesions. No fractures. Mild degenerative anterolisthesis L5 upon S1 related to facet arthropathy at this level. There are no pars defects. There is disc space narrowi ng at L2-3 and L3-4 levels evident. IMPRESSION: 1. No acute findings in the chest. No evidence of aortic dissection nor pericardial effusion. 2. No acute findings in the abdomen pelvis. 3. Gallbladder not seen and presumed to be surgically absent. The biliary tree is not dilated. 4. Previous hysterectomy. RADIATION DOSE DELIVERED: Total DLP DATA REPOSITORY: All CT scans at this facility are submitted to the National Radiology Data Registry (NRDR) Dose Index Registry (DIR) with the [employer] (ACR). RADIATION OPTIMIZATION: All CT scans at this facility use at least one of these dose optimization te chniques: automated exposure control; mA and/or kV adjustment per patient size (includes targeted exa ms where dose is matched to clinical indication); or iterative reconstruction.
--- NOTE | 2023-06-23 12:45 | DI.CT_ITS ---
Exam(s) CT HEAD CERVICAL SPINE WO EXAM: CT HEAD CERVICAL SPINE WO CLINICAL HISTORY: fall, [place], neck pain. TECHNIQUE: Imaging Protocol: Axial computed tomography images with coronal and sagittal reformatted images were created and reviewed COMPARISON: No exams were available for comparison FINDINGS: BRAIN: There are no skull fractures nor fluid in the visualized paranasal sinuses. Small post inflammatory retention cysts noted posteriorly in left maxillary sinus. No associated fluid level. There is no evidence of intracranial hemorrhage, mass effect, or shift of midline structures. There are no extra-axial fluid collections. The ventricles are not enlarged or shifted and there is no blo od within the ventricular system nor within the basal cisterns. There is a small nonhemorrhagic lacunar infarct noted just above the posterolateral aspect of the rig ht thalamus in the right periventricular white matter. This measures 4 mm. Age indeterminate. CERVICAL SPINE: No evidence of acute fracture. Is mild degenerative anterolisthesis of C4 upon C5 related to facet a rthropathy at this level. Chronic disc space narrowing at C5-6 and C6-7 levels noted. Also disc space narrowing with an elemen t of fusion at C3-C4 levels both anteriorly and at the level of the facet joints posteriorly. There is no facet malalignment. IMPRESSION: No acute intracranial findings on this noninfused CT scan of the brain.Age-indeterminate small 4 mill imeter right-sided nonhemorrhagic lacunar infarct No evidence of cervical spine fracture, malalignment, nor acute compromise of the cervical spinal can al. Multilevel degenerative changes in the cervical spine evident. RADIATION DOSE DELIVERED: Total DLP DATA REPOSITORY: All CT scans at this facility are submitted to the National Radiology Data Registry (NRDR) Dose Index Registry (DIR) with the [employer] (ACR). RADIATION OPTIMIZATION: All CT scans at this facility use at least one of these dose optimization te chniques: automated exposure control; mA and/or kV adjustment per patient size (includes targeted exa ms where dose is matched to clinical indication); or iterative reconstruction.
[2023-06-23 13:24] LABS: Abs Immature Grans 0.02 10^3/uL (0.0-0.06); Absolute Basophil Count 0.05 10^3/uL (0.0-0.2); Absolute Eosinophil Count 0.24 10^3/uL (0.0-0.7); Absolute Lymphocyte Count 1.25 10^3/uL (1.2-3.4); Absolute Monocyte Count 0.51 10^3/uL (0.1-0.8); Absolute Neutrophil Count 5.04 10^3/uL (1.2-6.7); Basophils % 0.7; Eosinophils % 3.4; HCT 39.7 % (36.0-46.0); HGB 13.2 g/dL (11.2-15.7); Immature Grans % 0.3; Lymphocytes % 17.6; MCH 30.8 pg (27.0-33.0); MCHC 33.2 % (32.0-36.0); MCV 93 fL (80-95); MPV 11.2 fL (8.0-11.0); Monocytes % 7.2; Neutrophils % 70.8; Platelet Count 189 10^3/uL (130-400); RBC 4.29 10^6/uL (3.93-5.22); RDW 12.8 % (11.7-14.6); RDW-SD 43.3 fL; WBC 7.11 10^3/uL (4.4-10.8)
[2023-06-23 13:41] LABS: ALT 21 U/L (14-59); AST 15 U/L (15-37); Albumin 3.5 g/dL (3.4-5.0); Alkaline Phosphatase 106 U/L (46-116); Anion Gap 8.2 mmol/L (3-11); BUN 12 mg/dL (7-18); Bilirubin, Total 0.3 mg/dL (0.2-1.0); CO2 28.8 mmol/L (21.0-32.0); CREATININE 0.9 mg/dL (0.55-1.02); Calcium 9.2 mg/dL (8.5-10.1); Chloride 100 mmol/L (98-107); Estimated GFR 64.63 (mL/min/1.73m2); Glucose 224 mg/dL (74-106); Lipase 29 U/L (16-77); Potassium 4.1 mmol/L (3.5-5.1); Sodium 137 mmol/L (136-145); Total Protein 7.4 g/dL (6.4-8.2)
[2023-06-23] MEDS: Normal Saline - Diluent 50 ML VIAL IJ (13:53)
[2023-06-23] MEDS: Omnipaque 350 MG/ML 100 ML BTL IJ (13:54)
[2023-06-23] MEDS: Normal Saline Flush 10 ML SYR IVP (13:54)
--- NOTE | 2023-06-23 14:38 | DI.CT_ITS ---
Exam(s) CT THORACIC LUMBAR SPINE REC EXAM: CT THORACIC LUMBAR SPINE REC CLINICAL HISTORY: back pain TECHNIQUE: COMPARISON: CT CT CHEST/ABD/PEL W from 06/23/2023 FINDINGS: THORACIC SPINAL COLUMN: No evidence of fracture or listhesis. Partial anterior fusion of T4-T5 which is probably developmental. Facet joints are not fused at this level nor elsewhere in the thoracic s urmila column. No canal compromise. LUMBOSACRAL SPINAL COLUMN: No evidence of fracture. Mild degenerative anterolisthesis L5 upon S1. C hronic disc space narrowing at L2-3 and L3-4 levels. Mild central spinal canal stenosis at these lev els. No facet malalignment. IMPRESSION: No fractures in the thoracic and lumbar spines. Degenerative changes in the lumbar spine at L2-3 and L3-4 levels as described above including mild ce ntral canal stenosis.
--- NOTE | 2023-06-23 14:39 | ED.GENADUL_ITS ---
Discharge Plan Disposition Patient Disposition: Home Condition: Stable Discharge Details Clinical Impression: Back pain, Chest wall contusion Primary Care Provider: eZv Denton ED Provider: Luann Garcia Home Meds and New Rx's Prescriptions: Continued sucralfate [Carafate] 1 gram tablet 1 g PO QACHS Qty: 120 5RF Rx Instructions: please fill immediately (DME) blood sugar diagnostic Strip See Dose Instructions .ROUTE .MEDSUPPLY Qty: 300 6RF Dose Instruction: As directed Rx Instructions: Check blood sugar tid: Dx E11.9 (DME) lancets [OneTouch Delica Lancets] 33 gauge misc See Dose Instructions .ROUTE .MEDSUPPLY Qty: 300 4RF Dose Instruction: As directed Rx Instructions: 3x per day - glucose monitoring Dx E11.65 famotidine 40 mg tablet 40 mg PO BID Qty: 180 0RF bupropion HCl 100 mg tablet sustained-release 12 hr 100 mg PO BID Qty: 180 4RF Rx Instructions: 11/02/22 Per [facility]. -hb linagliptin 5 mg tablet 5 mg PO QAM Qty: 90 4RF esomeprazole magnesium 40 mg capsule,delayed release(DR/EC) 40 mg PO BID Qty: 180 3RF lisinopril-hydrochlorothiazide 20-12.5 mg tablet 1 tab PO DAILY Qty: 90 3RF (DME) OneTouch Verio test strips Strip See Rx Instructions .ROUTE .MEDSUPPLY Qty: 200 4RF Rx Instructions: Check blood sugar twice a day albuterol sulfate 90 mcg/actuation HFA aerosol inhaler 2 puff inhalation BID PRN (Reason: shortness of breath or wheezing) Qty: 8.5 6RF (DME) Hearing Aid Batteries Mis See Rx Instructions .ROUTE .MEDSUPPLY Qty: 8 12RF Rx Instructions: As directe- Energizer [id number]- Hearing aid Batteries budesonide-formoterol 160-4.5 mcg/actuation HFA aerosol inhaler 2 puff inhalation BID Rx Instructions: 11/02/22 Per [facility]. -hb gabapentin 100 mg capsule 200 mg PO HS Qty: 180 3RF Rx Instructions: 11/02/22 Per [facility]: Take 100mg AM and take 200mg HS. -hb magnesium hydroxide [Milk of Magnesia] 400 mg/5 mL suspension 2,400 mg PO DAILY PRN Rx Instructions: 11/02/22 Per [facility]; give 30mL HS if no BM in 3 days. -hb acetaminophen 325 mg capsule 325 mg PO TID Rx Instructions: 11/02/22 Per [facility]. -HB insulin glargine [Lantus Solostar U-100 Insulin] 100 unit/mL (3 mL) insulin pen 20 unit SC DAILY 30 Days Qty: 15 2RF Rx Instructions: 11/02/22 Per [facility]. -hb lorazepam 0.5 mg tablet 0.25 mg PO HS MDD 0.25mg PRN (Reason: anxiety) Qty: 15 0RF Hold Instructions: Pt Stopped/Never Started ropinirole 0.25 mg tablet 0.25 mg PO QHS Qty: 90 0RF Rx Instructions: administer 1-3 hours before bedtime insulin lispro 100 unit/mL insulin pen 1 sliding scale dose subcut USEASDIRECTD Qty: 15 0RF Rx Instructions: 11/02/22 Per [facility]: If BS less than 160 give none; BS 160- 200 give 1 unit; 201-240 give 2 units; 241-280 give 3 units; for BS greater than 280 give 4 units subcutaneously before meals. -hb (DME) pen needle, diabetic [Microdot Insulin Pen Needle] 32 gauge x 5/32 needle See Rx Instructions .ROUTE .MEDSUPPLY Qty: 90 4RF Rx Instructions: For daily insulin injection-DM E11.9 (DME) blood-glucose meter [OneTouch Verio Flex meter] [facility] [place] Instructions .Route Qty: 1 0RF Rx Instructions: As directed hydrocodone-acetaminophen 10-325 mg tablet 1 tab PO BID MDD 20mg PRN (Reason: backpain) Qty: 60 0RF sertraline 25 mg tablet 25 mg PO DAILY Qty: 90 3RF montelukast 10 mg tablet 10 mg PO DAILY Qty: 90 3RF Discharge Instructions Instructions: Contusion in Adults (ED), Back Pain (ED) Additional Instructions: Take your pain medication as needed Make sure you take full inhalation and exhalation to prevent pneumonia Do not exceed 3 g of Tylenol daily Recheck in 1 week with persistent discomfort All your CAT scans were negative for acute abnormality today Referrals: Zev Denton NP [Primary Care Provider] - 1 day HPI General Date/Time Provider Initiated Documentation: 06/23/23 12:29 . HPI Narrative: This 78 year-old female presents status post tripping falling 2 days prior to arrival. She presents today secondary to persistent and worsening pain predominantly to right shoulder, right chest and right flank She also hit her head and had a hematoma. Denies history of coagulopathy. States fall was strictly mechanical in nature. Denies any urinary symptoms. Denies any left-sided chest pain. Denies any dizziness, mild headache per patient. Related Data Home Medications Medication Instructions Recorded Confirmed Hearing Aid Batteries (hearing aid #8 ea 06/05/21 06/23/23 accessory) blood sugar diagnostic #300 ea 05/22/22 06/23/23 lancets 33 gauge (OneTouch Delica #300 ea 05/22/22 06/23/23 Lancets) acetaminophen 325 mg capsule 325 mg PO TID 11/02/22 06/23/23 budesonide-formoterol HFA 160 2 puff inhalation BID 11/02/22 06/23/23 mcg-4.5 mcg/actuation aerosol inhaler gabapentin 100 mg capsule 200 mg (2 x 100 mg) PO HS #180 caps 11/02/22 06/23/23 magnesium hydroxide 400 mg/5 mL 2,400 mg PO DAILY PRN 11/02/22 06/23/23 oral suspension (Milk of Magnesia) bupropion HCl 100 mg tablet,12 hr 100 mg PO BID #180 tabs 11/07/22 06/23/23 sustained-release linagliptin 5 mg tablet 5 mg PO QAM #90 tabs 11/07/22 06/23/23 esomeprazole magnesium 40 mg 40 mg PO BID #180 caps 11/30/22 06/23/23 capsule,delayed release lisinopril 20 1 tab PO DAILY #90 tabs 11/30/22 06/23/23 mg-hydrochlorothiazide 12.5 mg tablet insulin glargine 100 unit/mL (3 20 unit (0.2 mL) subcut DAILY DM 01/09/23 06/23/23 mL) subcutaneous pen (Lantus E11.9 Daily Insulin Injection 30 Solostar U-100 Insulin) days #15 mL lorazepam 0.5 mg tablet 0.25 mg (1/2 x 0.5 mg) PO HS PRN 01/09/23 06/23/23 anxiety #15 tabs ropinirole 0.25 mg tablet 0.25 mg PO QHS #90 tabs 01/11/23 06/23/23 insulin lispro 100 unit/mL 1 sliding scale dose subcut 02/26/23 06/23/23 subcutaneous pen USEASDIRECTD #15 mL pen needle, diabetic 32 gauge x #90 ea 02/27/23 06/23/23 (Microdot Insulin Pen Needle) albuterol sulfate 90 mcg/actuation 2 puff inhalation BID PRN 04/02/23 06/23/23 aerosol inhaler shortness of breath or wheezing #8.5 grams blood sugar diagnostic (Assurzuch #200 ea 04/02/23 06/23/23 Verio test strips) blood-glucose meter (Assurzuch #1 ea 04/05/23 06/23/23 Verio Flex Meter) hydrocodone 10 mg-acetaminophen 1 tab PO BID PRN backpain #60 tabs 05/09/23 06/23/23 325 mg tablet sertraline 25 mg tablet 25 mg PO DAILY #90 tabs 05/23/23 06/23/23 montelukast 10 mg tablet 10 mg PO DAILY #90 tabs 05/24/23 06/23/23 sucralfate 1 gram tablet (Carafate) 1 g PO QACHS #120 tabs 06/13/23 06/23/23 famotidine 40 mg tablet 40 mg PO BID #180 tabs 06/17/23 06/23/23 Previous Rx's Medication Instructions Recorded Hearing Aid Batteries (hearing aid #8 ea 06/05/21 accessory) blood sugar diagnostic #300 ea 05/22/22 lancets 33 gauge (OneTouch Delica #300 ea 05/22/22 Lancets) gabapentin 100 mg capsule 200 mg (2 x 100 mg) PO HS #180 caps 11/02/22 bupropion HCl 100 mg tablet,12 hr 100 mg PO BID #180 tabs 11/07/22 sustained-release linagliptin 5 mg tablet 5 mg PO QAM #90 tabs 11/07/22 esomeprazole magnesium 40 mg 40 mg PO BID #180 caps 11/30/22 capsule,delayed release lisinopril 20 1 tab PO DAILY #90 tabs 11/30/22 mg-hydrochlorothiazide 12.5 mg tablet insulin glargine 100 unit/mL (3 20 unit (0.2 mL) subcut DAILY DM 01/09/23 mL) subcutaneous pen (Lantus E11.9 Daily Insulin Injection 30 Solostar U-100 Insulin) days #15 mL lorazepam 0.5 mg tablet 0.25 mg (1/2 x 0.5 mg) PO HS PRN 01/09/23 anxiety #15 tabs ropinirole 0.25 mg tablet 0.25 mg PO QHS #90 tabs 01/11/23 insulin lispro 100 unit/mL 1 sliding scale dose subcut 02/26/23 subcutaneous pen USEASDIRECTD #15 mL pen needle, diabetic 32 gauge x #90 ea 02/27/23 (Microdot Insulin Pen Needle) albuterol sulfate 90 mcg/actuation 2 puff inhalation BID PRN 04/02/23 aerosol inhaler shortness of breath or wheezing #8.5 grams blood sugar diagnostic (OneTouch #200 ea 04/02/23 Verio test strips) blood-glucose meter (OneTouch #1 ea 04/05/23 Verio Flex Meter) hydrocodone 10 mg-acetaminophen 1 tab PO BID PRN backpain #60 tabs 05/09/23 325 mg tablet sertraline 25 mg tablet 25 mg PO DAILY #90 tabs 05/23/23 montelukast 10 mg tablet 10 mg PO DAILY #90 tabs 05/24/23 sucralfate 1 gram tablet (Carafate) 1 g PO QACHS #120 tabs 06/13/23 famotidine 40 mg tablet 40 mg PO BID #180 tabs 06/17/23 Allergies Allergy/AdvReac Type Severity Reaction Status Date / Time lidocaine Allergy Severe I pass Verified 06/23/23 13:03 out adhesive Allergy Intermediate Rash Verified 06/23/23 13:03 ampicillin Allergy Unknown Diarrhea Verified 06/23/23 13:03 cyclobenzaprine Allergy Unknown Diarrhea Verified 06/23/23 13:03 erythromycin base Allergy Unknown Diarrhea Verified 06/23/23 13:03 Penicillins Allergy Unknown Diarrhea Verified 06/23/23 13:03 Sulfa (Sulfonamide Allergy Unknown Diarrhea Verified 06/23/23 13:03 Antibiotics) levofloxacin AdvReac Severe VOMITING,DI Verified 06/23/23 13:03 ARRHEA metformin AdvReac Intermediate DIARRHEA Verified 06/23/23 13:03 pregabalin AdvReac Mild FATIGUE Verified 06/23/23 13:03 epinephrine AdvReac Unknown Dizziness/L Verified 06/23/23 13:03 ighthead rofecoxib AdvReac Unknown Diarrhea Verified 06/23/23 13:03 General Stated Complaint: Fall/Non TraumaCriteria PETER: 3 Course Vital Signs Vital signs: Vital Signs Temperature 36.8 C 06/23/23 12:24 Pulse 90 06/23/23 12:24 Respiratory Rate 20 06/23/23 12:24 Blood Pressure 148/96 H 06/23/23 12:24 Pulse Oximetry 98 06/23/23 12:24 Temperature 36.8 C 06/23/23 12:24 Temperature Source Tympanic 06/23/23 12:24 Pulse 86 06/23/23 13:45 Respiratory Rate 20 06/23/23 12:24 Respiratory Effort Normal 06/23/23 12:29 Blood Pressure 177/54 H 06/23/23 13:45 Blood Pressure Mean 95 06/23/23 13:45 Blood Pressure Position Sitting 06/23/23 12:24 Pulse Oximetry 98 06/23/23 12:24 Oxygen Delivery Method Room Air 06/23/23 12:24 Oxygen Flow Rate 0 06/23/23 12:24 Pain Level 9 06/23/23 12:24 Lab/Test Results Lab/Test Results: Laboratory Tests Range/Units 06/23/23 13:18 WBC (4.4-10.8) 10^3/uL 7.11 RBC (3.93-5.22) 10^6/uL 4.29 Hgb (11.2-15.7) g/dL 13.2 Hct (36.0-46.0) % 39.7 MCV (80-95) fL 93 MCH (27.0-33.0) pg 30.8 MCHC (32.0-36.0) % 33.2 RDW (11.7-14.6) % 12.8 Plt Count (130-400) 10^3/uL 189 MPV (8.0-11.0) fL 11.2 H Immature Gran % 0.3 Neutrophils % 70.8 Lymphocytes % 17.6 Monocytes % 7.2 Eosinophils % 3.4 Basophils % 0.7 Nucleated RBC % (0.0-0.3) % 0.0 Absolute Neutrophils (1.2-6.7) 10^3/uL 5.04 Absolute Lymphocytes (1.2-3.4) 10^3/uL 1.25 Absolute Monocytes (0.1-0.8) 10^3/uL 0.51 Absolute Eosinophils (0.0-0.7) 10^3/uL 0.24 Absolute Basophils (0.0-0.2) 10^3/uL 0.05 Sodium (136-145) mmol/L 137 Potassium (3.5-5.1) mmol/L 4.1 Chloride (98-107) mmol/L 100 Carbon Dioxide (21.0-32.0) mmol/L 28.8 Anion Gap (3-11) mmol/L 8.2 BUN (7-18) mg/dL 12 Creatinine (0.55-1.02) mg/dL 0.9 Est GFR (CKD-EPI 2020) (mL/min/1.73m2) 64.63 Glucose (74-106) mg/dL 224 H Calcium (8.5-10.1) mg/dL 9.2 Total Bilirubin (0.2-1.0) mg/dL 0.3 AST (15-37) U/L 15 ALT (14-59) U/L 21 Alkaline Phosphatase (46-116) U/L 106 Total Protein (6.4-8.2) g/dL 7.4 Albumin (3.4-5.0) g/dL 3.5 Lipase (16-77) U/L 29 Medical Decision Making 78-year-old female presenting with fall on 06 20, presents today secondary to persistent pain, GCS 15, alert and oriented x 4, hematoma noted to left occipital region, no hemotympanum, pupils equal round reactive to light and accommodation Patient is tender on the right chest wall, right upper abdomen, left lower quadrant, CTs were ordered for further evaluation, CT chest abdomen and pelvis, CT cervical and head do not show evidence of acute abnormality, CT thoracic and lumbar spine are negative for acute abnormality Mild hyperglycemia consistent with patient's history of diabetes Alert and oriented x 4, ambulatory with steady gait, reproducible chest wall tenderness, no significant visible evidence of trauma Urinalysis without evidence of acute abnormality Patient is ambulatory with steady gait, neurologically she is intact, lungs are clear to auscultation, cardiac rate rhythm regular, EKG does not show evidence of acute abnormality per attending's documentation and my review Quality:[facility] Health Related Social Needs: No Data to Display PFSH All Active Problems (Updated 06/23/23 @ 15:36 by SADAF Bergman) Chest wall contusion (Acute) Back pain (Acute) Hyponatremia (Acute) Impacted cerumen, left ear (Acute) Restless legs (Acute) Unspecified asthma (Chronic) Postpolio syndrome (Acute) Anemia, unspecified (Chronic) Cataract, right (Acute) Wears hearing aid in both ears (Acute) DVT prophylaxis (Acute) Fracture of tibial plateau (Acute) Incisional hernia (Acute) Centimeters superior to the umbilicus from remote open [place] fundoplication. Family history of colon cancer in mother (Acute) She was told she only needed colonoscopy every 10 years by [facility] Fecal incontinence (Acute) Diverticular disease of large intestine (Acute) Hernia of anterior abdominal wall (Acute) containing fat and mesenteric vessel Left lower quadrant abdominal pain (Acute) Dyspnea (Acute) Anxiety (Chronic) Fatigue (Chronic) Cough variant asthma (Chronic) Per [facility] [place] Knee pain, left (Chronic) Atherosclerosis (Chronic) Thyroid lesion (Chronic) Sensorineural hearing loss of both ears (Chronic) Conductive hearing loss, external ear (Chronic) Sciatic nerve pain (Chronic) Right Diabetic foot with normal protective sensation, peripheral vasculature, and bone structure (Acute) History of poliomyelitis (Chronic) Diabetic retinopathy (Chronic ~01/08/18) 01/08/18; ANDRIY; MILD B/L-kb 05/08/20: ANDRIY; MILD B/L-kb Shoulder pain, bilateral (Chronic 02/14/07) right shoulder; MRI-DJD/rotator cuff Osteoarthritis (Chronic) Insomnia (Chronic) Gastroesophageal reflux disease with esophagitis (Chronic) h/o esophageal stricture (dilated at [facility] Essential hypertension (Chronic 01/19/13) Diabetes mellitus (Chronic 06/13/12) Depressive disorder (Chronic) Chronic pain (Chronic) 08/26/13 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 No concerns for diversion. 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 Uses Lidocaine patches and Hydrocodone 10-325 up to TID PRN. She continues to walk for exercise. Also uses 200g Gabapentin QD. Hyperplastic polyps of stomach 03/30/15;[facility] Fibrocystic disease of breast left breast bx Family hx-breast malignancy mother Surgical History S/P ORIF (open reduction internal fixation) fracture Leg fracture Posterior subcapsular age-related cataract of left eye Nuclear age-related cataract, left eye Abdominal hysterectomy DISC SURGERY DILATION ESOPHAGEAL; MULTIPLE TIMES Reduction mammoplasty (~2001) Biopsy of breast Bladder Surgery Appendectomy Family History Brother Essential hypertension Brother No problems noted. Mother Essential hypertension Personal history of malignant neoplasm colon and throat Father Heart disease Sister Diabetes Essential hypertension Sister Essential hypertension Sister No problems noted. Maternal Aunts Personal history of malignant neoplasm Breast Cancer Other Family hx-breast malignancy Social History Smoking/Tobacco Use Status: Never Second Hand Exposure: Yes Smoking risk assessment performed?: Yes Alcohol Intake: never Drug use: Never Substance use type: does not use and painkillers Details: perscribed hydocodone Caregiver/Support person: No Household members: none Housing: other Details: Mobile Home Communication Needs: Hard of Hearing Do you need help understanding health information?: Never current occupation: CAREGIVER Pets and animals: Yes Pets and animals: cat(s) and dog(s) Sexually active: No Do you think of yourself as: straight/heterosexual Current gender identity: female What is your relationship status?: How often do you talk on the phone with friends or family?: three or more times per week How often do you get together with friends or relatives?: three or more times per week How often do you attend confucianism or mosque services?: 4 or more times per year Do you belong to any clubs or organized social groups?: no Panel score (0-1 are the most socially isolated patients): 2 What type of physical activity do you participate in: walking Duration: 30-45 minutes/day Frequency: daily Helena/Protestant: Sabianism Special helena needs: Yes Seatbelt use: always Helmet use: No Drive intox or ride w/intox industrial truck driver: No Do you feel safe at home: Yes Do you feel safe in your relationship?: Yes Additional Social history: Retired RN, 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 Plays several instruments. History History 5 Para 3 Hx # Term Pregnancies 3 Multiple births Hx # Pregnancies Ectopic pregnancies AB induced Hx Number of Living Children 3 AB spontaneous 2
[2023-06-23] MEDS: ACETAMINOPHEN 1,000 MG/100 ML BTL 400 MG IVPB (14:41)
[2023-06-23] MEDS: ACETAMINOPHEN 1,000 MG/100 ML BTL 1 MG (14:42)
[2023-06-23 14:58] LABS: Bilirubin Negative (Negative); Blood Negative (Negative); Clarity Clear (Clear); Glucose Negative (Negative); Ketones Negative (Negative); Leukocyte Esterase Negative (Negative); Nitrite Negative (Negative); Specific Gravity 1.015 (1.005-1.025); Urobilinogen 0.2 mg/dL (Up to 0.2); pH 6.5 (5-8)
--- NOTE | 2023-06-23 15:08 | DI.VRAD_ITS ---
PROCEDURE INFORMATION: Exam: CT Head Without Contrast Exam date and time: 06/23/2023 1:52 PM Age: 78 years old Clinical indication: Other: Fall, hi, neck pain TECHNIQUE: Imaging protocol: Computed tomography of the head without contrast. Radiation optimization: All CT scans at this facility use at least one of these dose optimization techniques: automated exposure control; mA and/or kV adjustment per patient size (includes targeted exams where dose is matched to clinical indication); or iterative reconstruction. COMPARISON: No relevant prior studies available. FINDINGS: Brain: Cerebral volume loss noted. Scattered areas of decreased attenuation in the deep periventricular white matter consistent with small vessel ischemic change. No evidence for acute intracranial hemorrhage. Cerebral ventricles: No ventriculomegaly. Paranasal sinuses: Incidental note made of small left maxillary sinus retention cyst with probable similar left anterior sphenoid sinus focus. Mastoid air cells: Visualized mastoid air cells are well aerated. Bones/joints: Unremarkable. No acute fracture. Soft tissues: Unremarkable. IMPRESSION: Senescent changes noted. No acute intracranial abnormality. PROCEDURE INFORMATION: Exam: CT Cervical Spine Without Contrast Exam date and time: 06/23/2023 1:52 PM Age: 78 years old Clinical indication: Other: Fall, hi, neck pain TECHNIQUE: Imaging protocol: Computed tomography of the cervical spine without contrast. Radiation optimization: All CT scans at this facility use at least one of these dose optimization techniques: automated exposure control; mA and/or kV adjustment per patient size (includes targeted exams where dose is matched to clinical indication); or iterative reconstruction. COMPARISON: US THYROID 11/03/2019 3:36 PM FINDINGS: Bones/joints: No acute fracture. There is reversal of the normal cervical lordosis, nonspecific but commonly seen with underlying muscle spasm. No significant disc bulge or herniation. No severe spinal canal stenosis. No significant neural foraminal narrowing. Lungs: Lung apices are normal. Vasculature: Bilateral calcified carotid plaque noted. Soft tissues: Unremarkable. IMPRESSION: Possible muscle spasm. Dictated and Authenticated by: Delisa Villafuerte MD. Ordering:BERNY Kong MD
--- NOTE | 2023-06-23 15:15 | DI.VRAD_ITS ---
PROCEDURE INFORMATION: Exam: CT Chest With Contrast; Diagnostic Exam date and time: 06/23/2023 2:16 PM Age: 78 years old Clinical indication: Other: Back, chest pain TECHNIQUE: Imaging protocol: Diagnostic computed tomography of the chest with contrast. Radiation optimization: All CT scans at this facility use at least one of these dose optimization techniques: automated exposure control; mA and/or kV adjustment per patient size (includes targeted exams where dose is matched to clinical indication); or iterative reconstruction. Contrast material: OMNI 350; Contrast volume: 100 ml; Contrast route: INTRAVENOUS (IV); COMPARISON: CT CHEST PE CTA 10/29/2019 6:28 PM FINDINGS: Lungs: Unremarkable. No consolidation. No masses. Pleural spaces: Unremarkable. No pneumothorax. No pleural effusion. Heart: Unremarkable. No cardiomegaly. No pericardial effusion. Lymph nodes: Unremarkable. No enlarged lymph nodes. Vasculature: Moderate atherosclerotic change noted in the vasculature. Diaphragm: There is a moderate-sized hiatal hernia. Bones/joints: Unremarkable. No acute fracture. Soft tissues: Unremarkable. IMPRESSION: No evidence for acute posttraumatic abnormality. PROCEDURE INFORMATION: Exam: CT Abdomen And Pelvis With Contrast Exam date and time: 06/23/2023 2:16 PM Age: 78 years old Clinical indication: Other: Back, chest pain TECHNIQUE: Imaging protocol: Computed tomography of the abdomen and pelvis with contrast. Radiation optimization: All CT scans at this facility use at least one of these dose optimization techniques: automated exposure control; mA and/or kV adjustment per patient size (includes targeted exams where dose is matched to clinical indication); or iterative reconstruction. Contrast material: OMNI 350; Contrast volume: 100 ml; Contrast route: INTRAVENOUS (IV); COMPARISON: CT ABDOMEN PELVIS W 05/22/2022 2:46 PM FINDINGS: Liver: Normal. No mass. Gallbladder and bile ducts: Normal. No calcified stones. No ductal dilation. Pancreas: There is minimal pancreatic ductal ectasia with the duct measuring nearly 4 mm. This does not appear significantly changed from previous study. Spleen: Normal. No splenomegaly. Adrenal glands: Normal. No mass. Kidneys and ureters: Normal. No hydronephrosis. Stomach and bowel: Unremarkable. No obstruction. No mucosal thickening. Appendix: No evidence of appendicitis. Intraperitoneal space: Unremarkable. No free air. No significant fluid collection. Vasculature: Moderate atherosclerotic change again noted in the vasculature. Lymph nodes: Unremarkable. No enlarged lymph nodes. Urinary bladder: Unremarkable as visualized. Reproductive: Status post hysterectomy. Bones/joints: Moderate lumbar spondylosis, unchanged. Soft tissues: Probable mild pelvic floor laxity. IMPRESSION: No acute abnormality seen to account for symptoms. Dictated and Authenticated by: Delisa Villafuerte MD. Ordering:BERNY Kong MD
--- NOTE | 2023-06-23 15:21 | DI.VRAD_ITS ---
PROCEDURE INFORMATION: Exam: CT Thoracic Spine Without Contrast Exam date and time: 06/23/2023 2:16 PM Age: 78 years old Clinical indication: Injury or trauma; Fall; Blunt trauma (contusions or hematomas) TECHNIQUE: Imaging protocol: Computed tomography of the thoracic spine without contrast. Radiation optimization: All CT scans at this facility use at least one of these dose optimization techniques: automated exposure control; mA and/or kV adjustment per patient size (includes targeted exams where dose is matched to clinical indication); or iterative reconstruction. COMPARISON: CT CHEST/ABD/PEL W 06/23/2023 2:16 PM FINDINGS: Bones/joints: Mild spondylosis. Vertebral body height is well preserved. No evidence for acute abnormality. 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 Soft tissues: Unremarkable. Vasculature: Moderate atherosclerotic change noted in the vasculature. Other findings: Moderate-sized hiatal hernia. IMPRESSION: No acute abnormality seen to account for symptoms. PROCEDURE INFORMATION: Exam: CT Lumbar Spine Without Contrast Exam date and time: 06/23/2023 2:16 PM Age: 78 years old Clinical indication: Injury or trauma; Fall; Blunt trauma (contusions or hematomas) TECHNIQUE: Imaging protocol: Computed tomography of the lumbar spine without contrast. Radiation optimization: All CT scans at this facility use at least one of these dose optimization techniques: automated exposure control; mA and/or kV adjustment per patient size (includes targeted exams where dose is matched to clinical indication); or iterative reconstruction. COMPARISON: CT CHEST/ABD/PEL W 06/23/2023 2:16 PM FINDINGS: Bones/joints: There is mild levoscoliosis of the lower lumbar level. Vertebral body height is well preserved. There is moderate spondylosis most noted at the L2-L3 and L3-L4 levels. There is mild stenosis at both levels. There is minimal anterolisthesis L5-S1 with moderate underlying facet arthropathy. Vasculature: Moderate atherosclerotic change noted in the vasculature. Soft tissues: Unremarkable. IMPRESSION: Moderate mid to lower lumbar spondylosis with mild stenosis L2-L3 and L3-L4. Dictated and Authenticated by: Delisa Villafuerte MD. Ordering:BERNY Kong MD
== END 2023-06-23 15:57 | disposition home or self-care (01) ==
PROVIDERS: Emergency Provider Physician Assistant; PCP Nurse Practitioner Family
DX: M54.6 Pain in thoracic spine (principal); M25.511 Pain in right shoulder; S20.211A Contusion of right front wall of thorax, initial encounter; E11.319 Type 2 diabetes mellitus with unspecified diabetic retinopathy without macular edema; I10 Essential (primary) hypertension; Z79.84 Long term (current) use of oral hypoglycemic drugs; Z79.899 Other long term (current) drug therapy; W18.39XA Other fall on same level, initial encounter
CPT/HCPCS: 36415; 74177; 80053; 83690; 93005; 96374; 99285; 70450; 71260; 72125; 81003; 85025; 93010; 99284; J0131; J3490

== ENCOUNTER → 2023-06-28 00:21 | Outpatient (CLI) | payer MEDICARE, MEDICAID, SELFPAY ==
--- NOTE | 2023-06-28 08:15 | DI.DEXA_ITS ---
Exam(s) XR DEXA BONE DENSITY W/WO JACOB EXAM: XR DEXA BONE DENSITY W/WO JACOB CLINICAL HISTORY: screening for osteoporosis IN POSTMENOPAUSAL WOMAN,Z78.0 TECHNIQUE: COMPARISON: DX DEXA BONE DENSITY WITH JACOB from 04/07/2009 FINDINGS: Lateral Spine Image: Unremarkable. No compression deformities identified. Left hip: Total T-Score: -3.2. This compares to -1.1 on the prior examination. Total Z-Score: -1.1 T- and Z-scores: Findings are consistent with osteoporosis. Lumbar Spine: Total T-Score: -1.2. This compares to -0.5 on the prior examination. Total Z-Score: 1.5 T- and Z-scores: Findings are consistent with osteopenia. IMPRESSION: Osteoporosis in the left hip.
== END ==
PROVIDERS: PCP Nurse Practitioner Family; Visit Provider Nurse Practitioner Family
DX: Z78.0 Asymptomatic menopausal state (principal); Z13.820 Encounter for screening for osteoporosis; M81.0 Age-related osteoporosis without current pathological fracture
CPT/HCPCS: 77080

== ENCOUNTER 2023-12-10 11:56 | Outpatient (CLI) | payer MEDICARE, MEDICAID, SELFPAY ==
--- NOTE | 2023-12-10 11:45 | RT.EKG_ITS ---
APPROVED REPORT Exam: Resting ECG Reason for Exam: dizziness Patient Location: O HR:71 bpm ECG Measurements Heart Rate 71 AXIS [place] 162 P 62 QRSd 86 QRS 16 QT 395 T 85 QTc 430 Conclusion Sinus rhythm...normal P axis, V-rate 50- 99 Normal Electrocardiogram
== END 2023-12-10 11:57 | disposition home or self-care (01) ==
LOC: DI.CM 11:58
PROVIDERS: PCP Nurse Practitioner Family; Visit Provider Nurse Practitioner Family
DX: R42 Dizziness and giddiness (principal)
CPT/HCPCS: 93010

== ENCOUNTER 2024-01-02 00:59 | Outpatient (CLI) | payer MEDICARE, MEDICAID, SELFPAY ==
--- NOTE | 2024-01-02 07:45 | DI.CT_ITS ---
Exam(s) CT ABDOMEN PELVIS W EXAM: CT ABDOMEN PELVIS W CLINICAL HISTORY: persistent llq pain,r10.32. TECHNIQUE: Imaging Protocol: Axial computed tomography images with coronal and sagittal reformatted images were created and reviewed CONTRAST MATERIAL: Intravenous: Omnipaque-350 85cc Oral: Yes. Oral contrast was also administered for bowel opacification. COMPARISON: CT CT THORACIC LUMBAR SPINE REC from 06/23/[address] CHEST/ABD/PEL W from 06/23/2023 FINDINGS: VISUALIZED LUNG BASES: No nodules nor pleural effusions evident. ABDOMEN: There is no ascites. LIVER: Liver mildly hypodense implying an element of steatosis. There are no discrete focal hepatic lesions. No dilated intrahepatic ducts. GALLBLADDER/BILIARY: Gallbladder is seen and is moderately distended but not edematous. CBD is not d ilated. PANCREAS: No evidence of pancreatic mass nor dilatation of the pancreatic duct. SPLEEN: Spleen is not enlarged. No obvious intrasplenic lesions. Splenic and portal veins are paten t. ADRENALS: There are no new significant adrenal masses. KIDNEYS:No cysts evident. No solid renal masses. No calculi nor hydronephrosis.. ABDOMINAL AORTA: Abdominal aorta is not enlarged. Common iliac arteries not enlarged. Incidentally noted is some sidewall plaque in the proximal superior mesenteric artery but without a critical steno sis at this level and there also no emboli filling defects seen within the SMA. LYMPH NODES:There is no retroperitoneal nor paraaortic adenopathy. ABDOMINAL WALL: There is now an anterior abdominal wall midline hernia a few cm above the umbilicus w hich does not contain a bowel loop but does contain vessels with some surrounding streaking in the fa t. There is also a small fat only containing umbilical hernia. GI: There is no evidence of bowel obstruction, free air, nor abscess. Oral contrast has reached the ileocecal valve at time of image acquisition. There is abundant fecal material noted throughout the colon. No evidence of colitis pattern. Some circumferential thickening the anal region noted PELVIS: GI: Appendix is not seen and may be surgically absent.No evidence of sigmoid diverticulitis.. There is a calcified lymph node interposed between the bladder base and the rectosigmoid again incidentally noted. LYMPH NODES: There is no significant intrapelvic nor inguinal adenopathy. REPRODUCTIVE: Uterus is again noted be surgically absent. There are no abnormal adnexal masses. URINARY BLADDER: No calculi nor obvious masses evident OSSEOUS: No fractures and no significant osseous lesions. Multilevel disc space narrowing at L2-3 and L3-4 levels with vacuum phenomenon. Also mild degenerati ve anterolisthesis of L5 upon S1 related to facet arthropathy. IMPRESSION: 1. There is an anterior abdominal wall hernia few cm above the umbilicus, slightly left of center and just below the transverse colon. This contains mesenteric/omental fat as well as some blood vessels and there is some streaking within the fat. The hernia sac does not contain a bowel loop and there is no evidence of bowel obstruction. 2. There is abundant fecal material noted throughout the colon. 3. Other findings as above RADIATION DOSE DELIVERED: 386.55mGy.cm Total DLP DATA REPOSITORY: All CT scans at this facility are submitted to the National Radiology Data Registry (NRDR) Dose Index Registry (DIR) with the [employer] ([employer]). RADIATION OPTIMIZATION: All CT scans at this facility use at least one of these dose optimization te chniques: automated exposure control; mA and/or kV adjustment per patient size (includes targeted exa ms where dose is matched to clinical indication); or iterative reconstruction.
[2024-01-02] MEDS: Barium Sulfate 2% W/V-Creamy Vanilla Smoothie 450 ML BTL PO ×2 (12:59→13:00)
[2024-01-02 13:17] LABS: CREATININE 0.9 mg/dL (0.55-1.02); Estimated GFR 64.63 (mL/min/1.73m2)
[2024-01-02] MEDS: Omnipaque 350 MG/ML 100 ML BTL IJ (14:47)
[2024-01-02] MEDS: Normal Saline - Diluent 50 ML VIAL IJ (14:49)
== END 2024-01-02 01:19 ==
LOC: DI 00:59
PROVIDERS: PCP Nurse Practitioner Family; Visit Provider Nurse Practitioner Family
DX: K46.9 Unspecified abdominal hernia without obstruction or gangrene (principal)
CPT/HCPCS: 74177; 82565; J3490

== ENCOUNTER 2024-09-11 00:15 | Outpatient (CLI) | payer MEDICARE, MEDICAID, SELFPAY ==
--- NOTE | 2024-09-11 08:30 | DI.RAD_ITS ---
Exam(s) XR KNEE LT 3V AP,LAT,SARAH EXAM: XR KNEE LT 3V AP,LAT,SARAH CLINICAL HISTORY: worsening pain, LT KNEE PAIN, M25.562. TECHNIQUE: 2D digital imaging was performed. Three views. COMPARISON: XA XR KNEE LT 1V from 06/30/2022 FINDINGS: BONES: There is an old lateral tibial plateau with hardware in place. No postoperative images are available for comparison. There is some irregularity at the lateral tibial plateau. No acute fracture is present. No bony destructive lesion is seen. JOINTS: There are degenerative changes greater of the lateral femoral tibial joint, she which shows narrowing and periarticular spurring. A joint effusion is seen. SOFT TISSUE: Normal. IMPRESSION: Old tibial plateau fracture with hard where in place. Degenerative changes are present in the lateral femoral tibial joint. Joint effusion. DATA REPOSITORY: RADIATION DOSE DELIVERED:
== END 2024-09-11 00:35 ==
LOC: DI 00:15
PROVIDERS: PCP Nurse Practitioner Family; Visit Provider Nurse Practitioner Family
DX: M17.12 Unilateral primary osteoarthritis, left knee (principal)
CPT/HCPCS: 73562

== ENCOUNTER → 2024-11-09 13:57 | Outpatient (BNVA) | payer MEDICARE, MEDICAID, SELFPAY | PROVIDERS: PCP Nurse Practitioner Family; Referring Provider Nurse Practitioner Family; Visit Provider Student in an Organized Health Care Education/Training Program | DX: M25.562 Pain in left knee (principal); M12.562 Traumatic arthropathy, left knee; E11.9 Type 2 diabetes mellitus without complications | CPT/HCPCS: 20610; J1010 ==

== ENCOUNTER 2024-11-30 19:36 | Outpatient (REF) | payer MEDICARE, MEDICAID, SELFPAY ==
[2024-11-30 19:56] LABS: HCT 36.0 % (36.0-46.0); HGB 12.1 g/dL (11.2-15.7); MCH 30.8 pg (27.0-33.0); MCHC 33.6 % (32.0-36.0); MCV 92 fL (80-95); MPV 11.7 fL (8.0-11.0); Platelet Count 222 10^3/uL (130-400); RBC 3.93 10^6/uL (3.93-5.22); RDW 13.2 % (11.7-14.6); RDW-SD 43.8 fL; WBC 8.03 10^3/uL (4.4-10.8)
[2024-11-30 20:11] LABS: ALT 22 U/L (14-59); AST 15 U/L (15-37); Albumin 3.6 g/dL (3.4-5.0); Alkaline Phosphatase 107 U/L (46-116); Anion Gap 8.3 mmol/L (3-11); BUN 9 mg/dL (7-18); Bilirubin, Total 0.2 mg/dL (0.2-1.0); CO2 29.7 mmol/L (21.0-32.0); Calcium 9.3 mg/dL (8.5-10.1); Chloride 97 mmol/L (98-107); Estimated GFR 86.83 (mL/min/1.73m2); Glucose 199 mg/dL (74-106); Potassium 4.1 mmol/L (3.5-5.1); Sodium 135 mmol/L (136-145); Total Protein 6.8 g/dL (6.4-8.2)
[2024-11-30 20:30] LABS: Hemoglobin A1C 8.3 % (<5.7)
[2024-12-01 10:19] LABS: Lab Add On Test DONE
[2024-12-01 10:46] LABS: TSH (W/Ref FT4) 1.35 uIU/mL (0.36-3.74)
== END 2024-11-30 19:37 | disposition home or self-care (01) ==
LOC: LBN 19:36
PROVIDERS: PCP Nurse Practitioner Family; Visit Provider Nurse Practitioner Family
DX: E11.65 Type 2 diabetes mellitus with hyperglycemia (principal); D64.9 Anemia, unspecified
CPT/HCPCS: 80053; 85027; 83036; 84443

== ENCOUNTER 2024-12-08 03:04 | Emergency (ER) | payer MEDICARE, MEDICAID, SELFPAY ==
[2024-12-08] VITALS (25 sets, daily range): BP systolic 119–171; BP diastolic 35–68; PULSE 67–82; RESP 7–18; TEMP 37; O2SAT 92–97
--- NOTE | 2024-12-08 03:00 | RT.EKG_ITS ---
APPROVED REPORT Exam: Resting ECG Reason for Exam: chest pain Patient Location: E HR:79 bpm ECG Measurements Heart Rate 79 AXIS [place] 169 P 39 QRSd 81 QRS 3 QT 378 T 87 QTc 435 Conclusion Sinus rhythm...normal P axis, V-rate 60- 99 Nonspecific T abnormalities, lateral leads...T <-0.10mV, I aVL V5 V6 Normal [place] There are no significant changes compared to prior EKG performed on 12/10/2023 at 12:07.
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
[2024-12-08] MEDS: Mylanta Suspension 30 ML CUP PO (03:27)
[2024-12-08 03:29] LABS: Abs Immature Grans 0.03 10^3/uL (0.0-0.06); HCT 35.0 % (36.0-46.0); HGB 11.7 g/dL (11.2-15.7); Immature Grans % 0.3 %; MCH 29.5 pg (27.0-33.0); MCHC 33.4 % (32.0-36.0); MCV 88 fL (80-95); MPV 10.8 fL (8.0-11.0); Platelet Count 229 10^3/uL (130-400); RBC 3.96 10^6/uL (3.93-5.22); RDW 12.8 % (11.7-14.6); RDW-SD 41.8 fL; WBC 10.22 10^3/uL (4.4-10.8)
[2024-12-08 03:48] LABS: ALT 21 U/L (14-59); AST 13 U/L (15-37); Albumin 3.4 g/dL (3.4-5.0); Alkaline Phosphatase 105 U/L (46-116); Anion Gap 6.8 mmol/L (3-11); BUN 13 mg/dL (7-18); Bilirubin, Total 0.3 mg/dL (0.2-1.0); CO2 29.2 mmol/L (21.0-32.0); Calcium 9.4 mg/dL (8.5-10.1); Chloride 98 mmol/L (98-107); Estimated GFR 56.60 (mL/min/1.73m2); Glucose 177 mg/dL (74-106); Lipase 35 U/L (<78); Magnesium 1.8 mg/dL (1.8-2.4); Potassium 3.7 mmol/L (3.5-5.1); Sodium 134 mmol/L (136-145); Total Protein 7.3 g/dL (6.4-8.2); Troponin I 4 ng/L (<or=51)
[2024-12-08 03:55] LABS: D-Dimer 667 ng/mlFEU (<500)
--- NOTE | 2024-12-08 04:15 | DI.RAD_ITS ---
Exam(s) XR CHEST 2V PA LATERAL EXAM: XR CHEST 2V PA LATERAL CLINICAL HISTORY: CP TECHNIQUE: 2D digital imaging was performed. Two views. COMPARISON: CT CT CHEST/ABD/PEL W from 06/23/2023 FINDINGS: HEART: Normal size. Aorta: Not dilated. PULMONARY VASCULATURE: Normal. MEDIASTINUM: Unremarkable. LUNGS: Clear. PLEURAL SPACE: No pleural effusion or pneumothorax. BONE:Unremarkable for age. SOFT TISSUES: Unremarkable. IMPRESSION: No acute abnormality. DATA REPOSITORY: RADIATION DOSE DELIVERED:
[2024-12-08] MEDS: ACETAMINOPHEN 1,000 MG/100 ML BAG 400 MG IVPB (04:45)
[2024-12-08 05:24] LABS: Troponin I 5 ng/L (<or=51)
--- NOTE | 2024-12-08 09:04 | DI.VRAD_ITS ---
PROCEDURE INFORMATION: Exam: XR Chest Exam date and time: 12/08/2024 4:33 AM Age: 79 years old Clinical indication: Other: Chest pain TECHNIQUE: Imaging protocol: Radiologic exam of the chest. Views: 2 views. COMPARISON: CT CHEST/ABD/PEL W 06/23/2023 2:16 PM FINDINGS: Lungs: Unremarkable. No consolidation. Pleural spaces: Unremarkable. No pleural effusion. No pneumothorax. Heart/Mediastinum: Unremarkable. No cardiomegaly. Bones/joints: Unremarkable. IMPRESSION: No acute findings. Dictated and Authenticated by: Padmini Perez MD. Orderin Maciej Grewal MD
== END 2024-12-08 06:13 | disposition home or self-care (01) ==
PROVIDERS: Emergency Provider Emergency Medicine; PCP Nurse Practitioner Family
DX: R07.9 Chest pain, unspecified (principal); R10.13 Epigastric pain; E11.319 Type 2 diabetes mellitus with unspecified diabetic retinopathy without macular edema; I10 Essential (primary) hypertension; Z79.4 Long term (current) use of insulin
CPT/HCPCS: 36415; 80053; 83690; 93005; 96365; 99284; 71046; 83735; 84484; 85025; 85379; 93010; J0131

== ENCOUNTER 2024-12-14 03:20 | Outpatient (CLI) | payer MEDICARE, MEDICAID, SELFPAY ==
--- NOTE | 2024-12-14 06:15 | DI.NM_ITS ---
APPROVED REPORT Exam: Pharmacologic Patient Location: Out-Patient Room/Bed: Stress Nurse: Camila Valerio RN Ordering Provider:PHILLY EDMONDSLuca ESPAÑA, Contact Number: [phone] BMI: 24.50 Baseline Rhythm: Sinus Rhythm Indications: Dyspnea Medical History Medical History: Asthma, DVT, dyspnea, anxiety, hearing loss, GERD, HTN, diabetes, depression, poliomyelitis, chronic LBP Cardiac Medications: Albuterol sulfate, insulin lispro, sertraline, gabapentin, amlodipine, bupropion, lisinopril/hydrochlorothiazide, linagliptin, insulin glargine Allergies: Lidoncaine, adhesive, ampicillin, cyclobenzaprine, erythromycin base, penicillin, sulfa, levofloxacin, metformin, pregabalin, epinephrine, rofecoxib Cardiac Risk Factors: Family hx, HTN, diabetes Previous Cardiac Procedures: None Pretest Chest Pain Characteristics: None Exercise History: Indeterminate Physical Disabilities: Knee pain Lung Sounds: Clear to auscultation Heart Sounds: Regular Stress Test Details Test: Pharmacologic stress testing performed using 0.4 mg of regadenoson per 5 mL given IV over 10 seconds. Reason for pharmacologic stress test: physical limitation. Nuclear Acquisition: Rest Tc-99m/Stress Tc-99m 1 day Rest Isotope: Tc-99m Sestamibi. Dose: 10.0 Date: 12/14/2024 Injection Time: 0900 Stress Isotope: Tc-99m Sestamibi. Dose: 30.0 Date: 12/14/2024 Injection Time: 1050 HR Resting HR Supine: 74 bpm Max Heart Rate (APMHR): 139 bpm Target HR (85% APMHR): 118 bpm Max HR Achieved: 107 bpm % of APMHR: 77 Recovery HR: 91 bpm BP Resting BP Supine: 158/66 mmHg Max BP: 164/68 mmHg Recovery BP: 158/66 mmHg ECG Resting ECG: Sinus Rhythm Stress ECG: Sinus Tachycardia ST Change: Nondiagnostic low heart rate Recovery ECG: Sinus Rhythm Recovery ST Change: Nondiagnostic low heart rate Clinical Stress Symptoms: L shoulder ache (8/10) Angina Score: None Rate Pressure Product: 45925 Stress ECG Conclusion 1. Resting electrocardiogram showed poor R wave progression 2. Patient underwent testing using pharmacologic stress with regadenoson 3. Peak heart rate achieved was 77% of maximal predicted heart rate for age 4. The electrocardiographic portion of the test was nondiagnostic 5. See MPI report Stress Test Summary STAGE HR BP SpO2 Symptoms NOTES Supine 74 158/66 91% 1 min post Lexiscan injection 96 164/68 94% 8/10 left shoulder ache 3 min post Lexiscan injection 100 160/64 96% 6 min post Lexiscan injection 91 158/66 96% All symptoms resolved. Laying stephanie performed r/t left knee pain. C/O 8/10 left shoulder ache. All symptoms resolved by test end. Patient proceeded to imaging ambulatory in no apparent distress. MPI Conclusion Myocardial perfusion is normal. There is no ischemia or evidence of prior infarction Ejection fraction is within the range of normal with normal wall motion
[2024-12-14] MEDS: Regadenoson 0.4 MG/5 ML SYR IVP (11:06)
== END 2024-12-14 03:40 ==
LOC: DI 03:21
PROVIDERS: PCP Nurse Practitioner Family; Visit Provider Internal Medicine Cardiovascular Disease
DX: R06.00 Dyspnea, unspecified (principal)
CPT/HCPCS: 78452; 93016; 93018; 93017; J2785

== ENCOUNTER 2024-12-17 13:45 | Outpatient (RCR) | payer MEDICARE, MEDICAID, SELFPAY ==
--- NOTE | 2024-12-25 15:04 | W.HOLTRPT ---
Date of service: 12/25/24 Time of Service: 15:04 Holter Monitor Report Referring Provider:: Zev Quiroz Indications:: Dizziness Holter Monitor Note: This is a 48-hour Holter monitor Rhythm throughout was sinus with an average heart rate of 83. Minimum was 59, maximum 118 There were very rare isolated atrial and ventricular ectopic beats. There was no atrial fibrillation, no high-grade AV block, no pauses greater than 3 seconds. Reported symptoms correlated to sinus rhythm
== END 2025-01-15 23:59 | disposition home or self-care (01) ==
LOC: CARDOPNVT 13:45
PROVIDERS: PCP Nurse Practitioner Family; Visit Provider Internal Medicine Cardiovascular Disease
DX: R42 Dizziness and giddiness (principal)
CPT/HCPCS: 93227; 93225; 93226

== ENCOUNTER → 2025-02-26 11:10 | Outpatient (BNVA) | payer MEDICARE, MEDICAID, SELFPAY | PROVIDERS: PCP Nurse Practitioner Family; Referring Provider Nurse Practitioner Family; Visit Provider Physician Assistant | DX: M12.562 Traumatic arthropathy, left knee (principal); E11.9 Type 2 diabetes mellitus without complications | CPT/HCPCS: 20610; 36416; 83036; J1010 ==